=== PATIENT | male | born 1975 | race Hispanic/Latino ===

== ENCOUNTER 2024-03-04 00:13 | Emergency (ER) | payer MEDICARE ==
[~2024-03-04] VITALS: Ht 167.6 cm; Wt 92.5 kg
[~2024-03-04 00:13] MED LIST: ATOR40TA71 PO; CHOL500050 PO; FERR-72 PO; GLIP2.5T2 PO; LORA10TA7 PO; METH-811 PO; TAMS-1 PO
[2024-03-04 04:05] VITALS: BP 115/76; PULSE 104; RESP 22; TEMP 98.4; O2SAT 96
== END 2024-03-04 04:21 | disposition home or self-care (01) ==
LOC: EDH 00:13
DX: K94.03 Colostomy malfunction (principal); Y84.8 Other medical procedures as the cause of abnormal reaction of the patient, or of later complication, without mention of misadventure at the time of the procedure; Y82.8 Other medical devices associated with adverse incidents; E11.9 Type 2 diabetes mellitus without complications; E78.00 Pure hypercholesterolemia, unspecified; I10 Essential (primary) hypertension; Z79.84 Long term (current) use of oral hypoglycemic drugs; Z79.899 Other long term (current) drug therapy; Z98.890 Other specified postprocedural states

== ENCOUNTER 2024-04-12 18:52 | Inpatient (IN) | payer MEDICARE ==
[~2024-04-12] VITALS: Ht 167.6 cm; Wt 103.9 kg
[~2024-04-12 18:52] MED LIST changes: +AMLO-258 PO; +AUD IH
[2024-04-12 19:41] LABS: BASOPHILS # (AUTO) 0.01 K/uL (0.00-0.20); BASOPHILS % (AUTO) 0.1 % (0.0-5.0); HEMATOCRIT 30.8 % (42-54); IMMATURE GRANULOCYTE ABSOLUTE 0.07 K/uL (0-1); LYMPHOCYTES # (AUTO) 0.5 K/uL (1.0-4.8); LYMPHOCYTES % (AUTO) 3.9 % (21.0-51.0); MEAN CORPUSCULAR HEMOGLOBIN 24.6 pg (27.0-33.0); MEAN CORPUSCULAR HGB CONC 31.5 g/dL (32.0-36.0); MONOCYTES # (AUTO) 0.6 K/uL (0.1-1.0); MONOCYTES % (AUTO) 4.5 % (3.0-13.0); NEUTROPHILS # (AUTO) 11.3 K/uL (1.8-7.7); NEUTROPHILS % (AUTO) 90.9 % (40.0-77.0); PLATELET COUNT (AUTO) 360 K/uL (130-400); RED BLOOD CELL COUNT(AUTO) 3.95 MIL/uL (4.50-6.20); RED CELL DISTRIBUTION WIDTH 20.6 % (11.0-15.5); WHITE BLOOD COUNT (AUTO) 12.4 K/uL (4.8-10.8)
[2024-04-12 19:47] LABS: CREATININE 3.4 mg/dL (0.5-1.3); POTASSIUM 4.4 mmol/L (3.5-5.1)
[2024-04-12] MEDS: ZOSYN 3.375GM+NS 50ML 50 ML IVPB STA (20:18)
[2024-04-12] MEDS: 0.9%NACL 1000ML 1,000 ML IV ONE (20:18)
[2024-04-12] MEDS: ondanSETRON 4MG INJ IVP ONE (20:19)
[2024-04-12 20:44] LABS: ALBUMIN 1.9 g/dL (3.5-5.0); BILIRUBIN,DIRECT 0.4 mg/dL (0.0-0.3); BILIRUBIN,TOTAL 0.7 mg/dL (0.2-1.0); TOTAL PROTEIN, SERUM 5.1 g/dL (6.0-8.3)
[2024-04-12] MEDS: ALBUMIN (HUMAN) 25% 50 ML IV SCH (20:59)
[2024-04-12 21:13] LABS: ABG BASE EXCESS -11.7 mmol/L (-2.0-3.0); ABG HCO3 12.5 mmol/L (21.0-28.0); ABG OXYGEN SATURATION 91.2 % (94.0-98.0); ABG PCO2 24 mmHg (35-48); ABG PH 7.341 (7.350-7.450); CARBON MONOXIDE 0.3 % (0.5-1.5); HHb 8.7; PO2, ARTERIAL BG 68.4 mmHg (83.0-108.0); VENT MODE, BG ROOMAIR (ROOM AIR)
[2024-04-12] MEDS: NOREPINEPHRIN 4MG/NS 250ML 250 ML IV SCH (21:20)
[2024-04-12 21:27] LABS: APPEARANCE,URINE CLEAR (CLEAR); BILIRUBIN,URINE NEGATIVE (NEGATIVE); COLOR,URINE LIGHT-YELLOW (YELLOW); GLUCOSE, URINE (UA) NEGATIVE (NEGATIVE); KETONES,URINE NEGATIVE (NEGATIVE); LEUKOCYTE ESTERASE ,URINE NEGATIVE Leu/uL (NEGATIVE); NITRATE,URINE NEGATIVE (NEGATIVE); OCCULT BLOOD,URINE NEGATIVE (NEGATIVE); PH,URINE 5.5 (5.0-8.0); PROTEIN,URINE NEGATIVE (NEGATIVE); UROBILINOGEN,URINE 0.2 mg/dL (0.2-1.0)
[2024-04-12 21:28] VITALS: PULSE 90; RESP 15; O2SAT 100
[2024-04-12 21:28] LABS: ADD UA MICROSCOPIC YES
[2024-04-12 21:30] LABS: BACTERIA,URINE RARE /HPF (None Seen); MUCUS,URINE RARE LPF (None Seen); OTHER CASTS, URINE 1 /LPF (None Seen); SQUAMOUS EPITHELIAL CELL,UR RARE /HPF (0-2)
--- NOTE | 2024-04-12 21:46 | ERN ---
ED Note History of Present Illness Stated Complaint: WEAKNESS Chief Complaint: Weakness Time Seen by MD: 19:46 Time Seen by Midlevel: 19:46 Dictation: Patient is a 48-year-old male with a history of colon cancer on chemo, diabetes, liver cirrhosis, hypertension who presents to the emergency department with complaints of generalized body weakness, sob, nausea and nonbloody vomiting, generalized swelling onset today. Patient reports he had chemo yesterday. Denies any diarrhea, abdominal pain, fevers. Allergies: Coded Allergies: No Known Allergies (Unverified Allergy, Unknown, 02/21/24) Home Meds Reported Medications Albuterol Sulfate (Albuterol Sulfate) 2.5 Mg/0.5 Ml Vial.neb, 2.5 MG IH Q8H, INH 03/18/24 Amlodipine Besylate (Amlodipine Besylate) 10 Mg Tablet, 10 MG PO DAILY for 30 Days, #30 TAB 0 Refills 03/18/24 Glipizide (Glipizide ER) 2.5 Mg Tab.er.24, 2.5 MG PO BID 03/18/24 Methocarbamol (Methocarbamol) 500 Mg Tablet, 500 MG PO QIDP PRN for OTHER [SEE ORDER COMMENTS], TAB 02/22/24 Ferrous Sulfate (Ferrous Sulfate) 325 Mg (65 Mg Iron) Tablet, 325 MG PO DAILY, TAB 02/22/24 Cholecalciferol (Vitamin D3) (Vitamin D3) 1,250 Mcg (06062 Unit) Capsule, 1250 MCG PO QWEEK, CAP 02/22/24 Loratadine (Loratadine) 10 Mg Tablet, 10 MG PO DAILY, TAB 02/22/24 Atorvastatin Calcium (Atorvastatin Calcium) 40 Mg Tablet, 40 MG PO DAILY, TAB 02/22/24 Tamsulosin HCl (Flomax) 0.4 Mg Cap.er.24h, 0.4 MG PO DAILY, CAPSULE. 02/22/24 Past Medical History Past Medical History: Cancer, Diabetes-Type II, Hypertension Surgical History: Other Surgical History Other: COLOSTOMY, R CHEST PORT A CATH RN Note Reviewed/Agreed w/PFSH: Yes Review of System Dictation Constitutional: Negative for fever,chills, and weight loss Eyes: Negative for injury, pain,redness, and discharge ENT: Negative for injury,pain or swelling Cardiovascular: Negative for chest pain, palpitations, and edema Respiratory: Negative for cough, and wheezing, positive for shortness of breath Abdomen/GI: Negative for diarrhea, and constipation. Positive for nausea vomiting Back: Negative for injury and pain : Negative for injury, bleeding and discharge MS/Extremity: Negative for injury and deformity Skin: Negative for rash, and discoloration Neuro: Negative for headache, numbness, tingling, and seizure . Positive for generalized weakness Psych: Negative for suicide ideation, homicidal ideation, and hallucinations Initial Vital Sign VS Vital Signs Date Time Temp Pulse Resp B/P (MAP) Pulse Ox O2 Delivery O2 Flow Rate FiO2 04/12/24 18:53 92 16 97/49 96 Room Air 04/12/24 19:09 97.9 0 21 Physical Exam Dictation Vital Signs reviewed General Appearance: Alert, oriented x 3, mildly distress, Head and Face: non-traumatic. Eyes: PERRL, pink conjunctivas, eyelid no trauma, anterior chamber with arcus senilis. Ears: Pinnas intact and no signs of trauma or erythema ear canals clear and no discharge TM no erythema Nose: No discharge, no bleeding. Oropharynx: Mouth normal, tongue pink. pharynx clear,no erythema, tonsils no exudates, no abscesses noted, mucous membrane moist Neck: Supple, non-tender, no thyromegaly, no masses, no JVD, no bruits Breast:Deferred Chest:No tenderness, no crepitus, no paradoxical movement, no retractions Lungs:Clear, well-ventilated, symmetric, no rales, no wheezing, no rhonchi, no stridor, diminished right side Heart: Regular rate, regular rhythm, no murmur, no gallops Vascular: 3+ bilateral edema Abdomen: Firm, positive bowel sounds, distended, no guarding, nontender, no rebound, no masses no hepatomegaly, no splenomegaly, no Avina's sign, no hernias. Rectal: Deferred Genital: Deferred Neurological: Normal speech, motor function intact, sensory function intact Musculoskeletal: Neck nontender, full range of motion, back nontender, full range of motion, Extremities: nontender, full range of motion Skin: Color pale, dry, no turgor, no rash, no lacerations, no abrasions, no contusions. Lymphatic: Deferred Results (Laboratory/Radiology) Laboratory/Radiology Laboratory Tests Test 04/12/24 19:25 04/12/24 20:11 04/12/24 21:12 04/12/24 21:19 White Blood Count 12.4 K/uL (4.8-10.8) H Red Blood Count 3.95 MIL/uL (4.50-6.20) L Hemoglobin 9.7 g/dL (14.0-18.0) L Hematocrit 30.8 % (42-54) L Mean Corpuscular Volume 78.0 fL (79-99) L Mean Corpuscular Hemoglobin 24.6 pg (27.0-33.0) L Mean Corpuscular Hemoglobin Concent 31.5 g/dL (32.0-36.0) L Red Cell Distribution Width 20.6 % (11.0-15.5) H Platelet Count 360 K/uL (130-400) Mean Platelet Volume 9.4 fL (7.5-10.5) Immature Granulocyte % (Auto) 0.6 % (0-1) Neutrophils (%) (Auto) 90.9 % (40.0-77.0) H Lymphocytes (%) (Auto) 3.9 % (21.0-51.0) L Monocytes (%) (Auto) 4.5 % (3.0-13.0) Eosinophils (%) (Auto) 0.0 % (0.0-8.0) Basophils (%) (Auto) 0.1 % (0.0-5.0) Neutrophils # (Auto) 11.3 K/uL (1.8-7.7) H Lymphocytes # (Auto) 0.5 K/uL (1.0-4.8) L Monocytes # (Auto) 0.6 K/uL (0.1-1.0) Eosinophils # (Auto) 0.00 K/uL (0.00-0.70) Basophils # (Auto) 0.01 K/uL (0.00-0.20) Absolute Immature Granulocyte (auto 0.07 K/uL (0-1) Nucleated Red Blood Cells 0.0 % (0.0-0.19) White Cell Morphology Comment See comments Red Blood Cell Morphology See comments Sodium Level 125 mmol/L (136-145) L Potassium Level 4.4 mmol/L (3.5-5.1) Chloride Level 94 mmol/L (101-111) L Carbon Dioxide Level 16 mmol/L (21-32) L Blood Urea Nitrogen 59 mg/dL (7-18) H Creatinine 3.4 mg/dL (0.5-1.3) H Glomerular Filtration Rate Calc 21 mL/min (>90) Random Glucose 161 mg/dL (70-105) H Total Calcium 8.4 mg/dL (8.5-10.1) L Lipase 119 U/L (16-77) H Lactic Acid Level 5.2 mmol/L (0.8-2.5) H Total Bilirubin 0.7 mg/dL (0.2-1.0) Direct Bilirubin 0.4 mg/dL (0.0-0.3) H Aspartate Amino Transf (AST/SGOT) 46 U/L (10-37) H Alanine Aminotransferase (ALT/SGPT) 30 U/L (12-78) Alkaline Phosphatase 494 U/L (50-136) H Ammonia 59 umol/L (11-32) H Troponin I High Sensitivity 5 ng/L (4-75) B-Type Natriuretic Peptide 60 pg/mL (0-100) Total Protein 5.1 g/dL (6.0-8.3) L Albumin 1.9 g/dL (3.5-5.0) L Procalcitonin 0.78 ng/mL (0.05-0.5) H Blood Gas Specimen Type Arterial Arterial Blood pH 7.341 (7.350-7.450) Arterial Blood Partial Pressure CO2 24 mmHg (35-48) L Arterial Blood Partial Pressure O2 68.4 mmHg (83.0-108.0) L Arterial Blood HCO3 12.5 mmol/L (21.0-28.0) L Arterial Blood Oxygen Saturation 91.2 % (94.0-98.0) L Arterial Blood Base Excess -11.7 mmol/L (-2.0-3.0) L Hemoglobin (Blood Gas) 10.0 g/dL (13.5-17.5) L Sodium (Blood Gas) 128 MMOL/L (136-145) L Bedside Potassium (Blood Gas) 4.5 MMOL/L (3.4-4.5) Bedside Chloride (Blood Gas) 103 MMOL/L (98-107) Bedside Glucose (Blood Gas) 150 MG/DL (65-95) H Bedside Ionized Calcium (Blood Gas) 1.10 MMOL/L (1.15-1.33) L Bedside Lactic Acid (Blood Gas) 5.12 MMOL/L (0.36-0.75) *H Blood Gas Temperature 37.0 CELSIUS (35.5-37.0) Blood Gas Vent Mode ROOMAIR (ROOM AIR) FiO2 21.0 % Blood Gas Specimen Comment RB Urine Color LIGHT-YELLOW (YELLOW) Urine Appearance CLEAR (CLEAR) Urine pH 5.5 (5.0-8.0) Urine Specific Prewitt 1.010 (1.001-1.031) Urine Protein NEGATIVE mg/dL (NEGATIVE) Urine Glucose (UA) NEGATIVE mg/dL (NEGATIVE) Urine Ketones NEGATIVE mg/dL (NEGATIVE) Urine Occult Blood NEGATIVE (NEGATIVE) Urine Nitrate NEGATIVE (NEGATIVE) Urine Bilirubin NEGATIVE mg/dL (NEGATIVE) Urine Urobilinogen 0.2 mg/dL (0.2-1.0) Urine Leukocyte Esterase NEGATIVE Tucker/uL Urine RBC 2-5 /HPF (0-1) H Urine WBC 6-10 /HPF (0-1) H Urine Squamous Epithelial Cells RARE /HPF (0-2) Urine Bacteria RARE /HPF (None Seen) Urine Hyaline Casts 2-5 /LPF (0-1 /LPF) H Urine Other Casts 1 /LPF (None Seen) REASON: sob ORDERING PHYSICIAN: JOHNNIE SAVAGE MD PROCEDURE: CXR1VW - CHEST 1VW CHEST 1VW CLINICAL HISTORY: sob COMPARISON: 03/22/2024 TECHNIQUE: Single view of the chest was obtained. FINDINGS: There is moderate to large right and likely small left pleural effusion with atelectasis. The chest port cardia mediastinal silhouette and bony structures are stable. IMPRESSION: Right greater than left bilateral pleural effusions with atelectasis. Labs Reviewed?: Yes EKG: (+) NSR, (+) rhythm (Sinus rhythm), (+) NH (143) EKG Comment: EKG 04/12/20241958 ventricular rate 87, regular rate and rhythm, sinus rhythm, prolonged QT. ED Course ED Course Orders Procedure Category Date Status Time Vital Signs Per CPOE 04/12/24 Transmitted Routine 19:28 Saline Lock Iv CPOE 04/12/24 Transmitted 19:28 Cbc With Differential LAB 04/12/24 Complete 19: Lipase LAB 04/12/24 Complete 19:28 Urinalysis Profile LAB 04/12/24 Logged 19:28 Basic Metabolic Panel LAB 04/12/24 Complete 19:28 Troponin I High LAB 04/12/24 Complete Sensitivity 19:52 12 Lead Ekg Tracing- EKG 04/12/24 Logged Technical 19:52 Chest 1vw RAD 04/12/24 Resulted 19:52 B-Type Natriuretic LAB 04/12/24 Complete Peptide 19:52 Ammonia LAB 04/12/24 Complete 19:52 Hepatic Function Panel LAB 04/12/24 Complete 19:53 0.9%Nacl 1000ml (Ns PHA 04/12/24 In Process 1000ml) 20:00 Ondansetron 4mg Inj PHA 04/12/24 Complete (Zofran 4mg Inj) 20:00 Blood Cult MERRY 04/12/24 In Process 20:04 Urinalysis Profile LAB 04/12/24 Complete 20:04 Zosyn 3.375gm+Ns 50ml PHA 04/12/24 Complete (Zosyn 3.375gm+Ns 20:04 Procalcitonin LAB 04/12/24 Complete 20:04 Lactic Acid LAB 04/12/24 Complete 20:04 Albumin (Human) 25% PHA 04/12/24 In Process (Albumin (Human) 25% 20:30 Norepinephrin 4mg/Ns PHA 04/12/24 In Process 250ml (Levophed 4mg 21:00 Arterial Blood Gas RT 04/12/24 Transmitted 20:51 Nurse Driven Zapata TJ 04/12/24 In Process Removal Pro 20:56 Arterial Blood Gas LAB 04/12/24 Complete Arterial + 21:12 Bipap Settings RT 04/12/24 Transmitted 21:18 Culture Urine MERRY 04/12/24 In Process 21:30 Vital Signs(Adult CPOE 04/12/24 Transmitted Hospitalist) 21:51 Nurse To Enter Home CPOE 04/12/24 Transmitted Medication 21:51 Admit Orders ADM 04/12/24 Transmitted 21:51 Meropenem (Merrem) PHA 04/12/24 Logged 22:00 Linezolid 600 PHA 04/12/24 In Process Mg/Iso-Osm (Zyvox 600 22:00 Acetaminophen 325mg PHA 04/12/24 In Process Supp (Tylenol 325mg 22:00 Ondansetron 4mg Inj PHA 04/12/24 In Process (Zofran 4mg Inj) 22:00 Heparin 5,000 Unit PHA 04/12/24 In Process Vial (Heparin 5,000 U 22:00 Nephrology Consult CONPHYS 04/13/24 Transmitted 08:00 Cbc With Differential LAB 04/13/24 Verified 04:00 Basic Metabolic Panel LAB 04/13/24 Verified 04:00 Magnesium LAB 04/13/24 Verified 04:00 Edm Admit Bridge Order ADM 04/12/24 Transmitted 21:59 Admit Orders ADM 04/12/24 Transmitted 21:59 Critcal Care Consult CONPHYS 04/12/24 Transmitted 22:01 Current Medications Medications (Trade) Dose Ordered Sig/Kyrie Route PRN Reason Start Time Stop Time Status Last Admin Dose Admin Acetaminophen (Tylenol 325mg Suppository) 650 mg Q6H PRN RC MILD PAIN (1-3) 04/12/24 22:00 05/12/24 21:59 Albumin Human 50 ml @ 0 mls/hr AD IV 04/12/24 20:30 04/22/24 20:29 04/12/24 20:59 Heparin Sodium (Porcine) (HEParin 5,000 UNIT VIAL) 5,000 unit Q12H SQ 04/12/24 22:00 05/12/24 21:59 Linezolid 300 ml @ 150 mls/hr Q12H IV 04/12/24 22:00 04/22/24 21:59 Meropenem 1 gm/ Sodium Chloride 100 ml @ 33.333 mls/ hr Q12H IVPB 04/12/24 22:00 04/22/24 21:59 UNV Norepinephrine 250 ml @ 37.425 mls/ hr PROTOCOL IV 04/12/24 21:00 05/12/24 20:59 04/12/24 21:20 Ondansetron HCl (zoFRAN 4MG INJ) 4 mg ONCE ONCE IVP 04/12/24 20:00 04/12/24 20:06 DC 04/12/24 20:19 Ondansetron HCl (zoFRAN 4MG INJ) 4 mg Q6H PRN IVP NAUSEA/VOMITING 04/12/24 22:00 05/12/24 21:59 Piperacillin Sod/ Tazobactam Sod 50 ml @ 200 mls/hr ONCE STAT IVPB 04/12/24 20:04 04/12/24 20:18 DC 04/12/24 20:18 Sodium Chloride 1,000 ml @ 100 mls/hr ONCE ONCE IV 04/12/24 20:00 04/13/24 05:59 04/12/24 20:18 Vital Signs Date Time Temp Pulse Resp B/P (MAP) Pulse Ox O2 Delivery O2 Flow Rate FiO2 04/12/24 21:23 97.9 93 18 94/55 96 Room Air* 0 21 04/12/24 20:27 97.9 93 18 85/48 96 Room Air* 0 21 04/12/24 19:09 97.9 93 18 91/46 98 Room Air* 0 21 04/12/24 18:53 92 16 97/49 96 Room Air Medical Decision Making MDM MDM: Patient is a 48-year-old male with a history of colon cancer on chemo, diabetes, liver cirrhosis, hypertension who presents to the emergency department with complaints of generalized body weakness, sob, nausea and nonbloody vomiting, generalized swelling onset today. Patient reports he had chemo yesterday. Denies any diarrhea, abdominal pain, fevers. CBC showed mild leukocytosis, anemia, chemistry showed hyponatremia, hypochloremia, elevated BUN and creatinine, worsening since previous admission, elevated lipase, elevated ammonia, elevated lactic acid, elevated procalcitonin, urinalysis unremarkable. Patient will be admitted for further management. Differential diagnosis: Dehydration, electrolyte imbalance, sepsis, ACS, gastroenteritis Comorbidities: Colon cancer, liver cirrhosis, hypertension Tests considered and not ordered secondary to shared decision making include: none Previous outside records reviewed: none Risk of complication and/or morbidity or mortality of patient management: The patient meets criteria for admission. Need for emergency major/minor surgery: No There are no social concerns with this patient. I independently interpreted the tests I ordered (labs, urinalysis, etc.). I discussed the case with the hospitalist for admission. Dr. Jimenez who accepts admission I discussed the case with the following specialists: none. Historian: pateint. I independently interpreted imaging studies and EKGs that I ordered (US, CT, XR, EKG, etc.). External chart review: none. Medical management and examination interpretation discussions were had by me with other qualified healthcare professionals as indicated for the patient's care. Critical Care Note Critical Time: other (39) Comment(s) Total critical care time was 39 minutes. Excluding time for procedures. Management of critically ill patient with concern for acute decompensation. Management included interpretation of laboratory values and imaging, hemodynamics, time for consultation with consultants and admitting physician. DX & DISP Disposition: Inpatient Decision to Admit Date: Apr 12, 2024 Decision to Admit Time: 21:51 Departure Impression: Primary Impression: Septic shock Additional Impressions: Acute kidney injury, Leukocytosis, Anemia, Hyponatremia, Hypochloremia, Hyperammonemia, Pleural effusion, right, Pleural effusion, left, Elevated lactic acid level, Hypoxia, Weakness, Hypotension Condition: Critical Referrals: SELF,REFERRAL (PCP) I have examined patient, & reviewed all documents, & agreed W/ the Diagnosis JOHNNIE SAVAGE MD Apr 12, 2024 21:46
[2024-04-12] MEDS ORDERED: MEROPENEM 1 GM in 0.9%NACL 100ML 100 ML IVPB SCH (22:00)
[2024-04-12] MEDS ORDERED: acetaMINOPHEN 325 MG SUPPOSITORY RC PRN (22:00)
--- NOTE | 2024-04-12 22:00 | HMCIMG ---
CHEST 1VW CLINICAL HISTORY: sob COMPARISON: 03/22/2024 TECHNIQUE: Single view of the chest was obtained. FINDINGS: There is moderate to large right and likely small left pleural effusion with atelectasis. The chest port cardia mediastinal silhouette and bony structures are stable. IMPRESSION: Right greater than left bilateral pleural effusions with atelectasis.
[2024-04-12] MEDS: LINEZOLID 600 MG/ISO-OSM 300 ML IV SCH (22:19)
[2024-04-12] MEDS: HEParin 5,000 UNIT VIAL SQ SCH (22:19)
[2024-04-12] MEDS ORDERED: COMPOUND IV MISC 1 EACH IVSOLN MISC PRN (22:30)
--- NOTE | 2024-04-12 23:17 | CONS ---
[facility] CONSULTATION NOTE Date Patient Seen: Apr 12, 2024 Time of Visit: 23:17 Supervising Physician: Dr. Price Reason for Consultation: Primary Care Physician: Dr. Ian Carter Outpatient Specialists: Inpatient Consults: PROBLEM LIST: Sepsis with septic shock, in need of pressor Acute hypoxic respiratory failure, in need of BIPAP Recurrent right pleural effusion- pathology report on 03/22 right pleural fluid negative for malignancy Acute cystitis Metastatic right colon adenocarcinoma to the liver Ascites with peritoneal carcinomatosis Lactic acidosis Metastatic right colon cancer to the liver, new diagnosis -Status post colostomy bag in place. - Biopsy from the liver was positive for adenocarcinoma consistent with colon origin -Started on chemotherapy treatment with 5-FU irinotecan, received his first cycle. Patient on 5-FU pump Metabolic acidosis Acute renal failure Frail/ debility Diabetes mellitus Persistent nausea Anemia HPI: Mr. Leyva is a 48-year-old male with a history of colon cancer on chemo s/p colostomy, diabetes, liver cirrhosis, hypertension who presented to the emergency department with complaints of generalized body weakness, sob, nausea and nonbloody vomiting, generalized swelling onset today. Patient reports he had chemo yesterday. Denies any diarrhea, abdominal pain, fevers. The patient presented hypoxic and was placed on BIPAP by ED. Patient was also hypotensive and was placed on Levophed by ED. Patient was admitted under Dr. Hicks with BIS as critical care consults. I went to assess the patient at bedside. The patient was sad crying,reports that he is going to and would like to go home. I informed him that the is in need of the pressor and in need of BIPAP other kendrick his b/p will dorp and become distressed from shortness of breath. He quickly agreed to plan of care. Plan of care is listed below. PAST MEDICAL HX: see above PAST SURGICAL HX: Colostomy, right chest port a cath SOCIAL HISTORY: No tobacco, ETOH, or illicit drug use Coded Allergies: No Known Allergies (Unverified Allergy, Unknown, 02/21/24) REVIEW OF SYSTEMS: 12 point ROS reviewed with patient. Pertinent positives mentioned above. Otherwise negative. PHYSICAL EXAM: GENERAL: alert, weak, awake oriented x 3 HEENT: EOMI, Sclera non icteric, moist mucosa NECK: Supple, no JVD, trachea midline LUNGS: Clear breath sounds bilaterally. No wheezes HEART: Regular rate and rhythm. Normal S1 and S2, without murmurs ABD: Abdomen soft, nontender. Bowel sounds present EXT: No clubbing cyanosis or edema NEURO: Alert and oriented to person, follows commands Vital Signs (last 8hr) Date Time Temp Pulse Resp B/P (MAP) Pulse Ox O2 Delivery O2 Flow Rate FiO2 04/12/24 22:31 97.9 93 18 80/50 96 Bi-PAP+ 50 04/12/24 21:23 97.9 93 18 94/55 96 Room Air* 0 21 04/12/24 20:27 97.9 93 18 85/48 96 Room Air* 0 21 04/12/24 19:09 97.9 93 18 91/46 98 Room Air* 0 21 04/12/24 18:53 92 16 97/49 96 Room Air LABS: Hematology Labs: Test 04/12/24 19:25 Range/Units White Blood Count 12.4 H 4.8-10.8 K/uL Red Blood Count 3.95 L 4.50-6.20 MIL/uL Hemoglobin 9.7 L 14.0-18.0 g/dL Hematocrit 30.8 L 42-54 % Mean Corpuscular Volume 78.0 L 79-99 fL Mean Corpuscular Hemoglobin 24.6 L 27.0-33.0 pg Mean Corpuscular Hemoglobin Concent 31.5 L 32.0-36.0 g/dL Red Cell Distribution Width 20.6 H 11.0-15.5 % Platelet Count 360 130-400 K/uL Mean Platelet Volume 9.4 7.5-10.5 fL Immature Granulocyte % (Auto) 0.6 0-1 % Neutrophils (%) (Auto) 90.9 H 40.0-77.0 % Lymphocytes (%) (Auto) 3.9 L 21.0-51.0 % Monocytes (%) (Auto) 4.5 3.0-13.0 % Eosinophils (%) (Auto) 0.0 0.0-8.0 % Basophils (%) (Auto) 0.1 0.0-5.0 % Neutrophils # (Auto) 11.3 H 1.8-7.7 K/uL Lymphocytes # (Auto) 0.5 L 1.0-4.8 K/uL Monocytes # (Auto) 0.6 0.1-1.0 K/uL Eosinophils # (Auto) 0.00 0.00-0.70 K/uL Basophils # (Auto) 0.01 0.00-0.20 K/uL Absolute Immature Granulocyte (auto 0.07 0-1 K/uL Nucleated Red Blood Cells 0.0 0.0-0.19 % White Cell Morphology Comment See comments Red Blood Cell Morphology See comments Chemistry Labs: Test 04/12/24 20:11 04/12/24 19:25 Range/Units Lactic Acid Level 5.2 H 0.8-2.5 mmol/L Total Bilirubin 0.7 0.2-1.0 mg/dL Direct Bilirubin 0.4 H 0.0-0.3 mg/dL Aspartate Amino Transf (AST/SGOT) 46 H 10-37 U/L Alanine Aminotransferase (ALT/SGPT) 30 12-78 U/L Alkaline Phosphatase 494 H 50-136 U/L Ammonia 59 H 11-32 umol/L Troponin I High Sensitivity 5 4-75 ng/L B-Type Natriuretic Peptide 60 0-100 pg/mL Total Protein 5.1 L 6.0-8.3 g/dL Albumin 1.9 L 3.5-5.0 g/dL Procalcitonin 0.78 H 0.05-0.5 ng/mL Sodium Level 125 L 136-145 mmol/L Potassium Level 4.4 3.5-5.1 mmol/L Chloride Level 94 L 101-111 mmol/L Carbon Dioxide Level 16 L 21-32 mmol/L Blood Urea Nitrogen 59 H 7-18 mg/dL Creatinine 3.4 H 0.5-1.3 mg/dL Glomerular Filtration Rate Calc 21 >90 mL/min Random Glucose 161 H 70-105 mg/dL Total Calcium 8.4 L 8.5-10.1 mg/dL Lipase 119 H 16-77 U/L DIAGNOSTICS / RADIOLOGY RESULTS: [ ] PLAN Admit to ICU under Dr. Jimenez with BIS as critical care consults. Continuous cardiac monitoring. Monitor respiratory status closely. Continue Levophed IV drip to keep MAP above 65. Continue BIPAP, titrate to keep O2 above 92%. Albuterol and Atrovent. RT to provide IS and education on use. PRN medication for N/V, pain, hypertension Monitor liver and renal function. Monitor electrolytes and treat accordingly. DVT and GI prophylaxis. NEURO: Minimize central acting medications as possible. Fall Precautions. Well lighted room through the day and minimize interruptions through the night to prevent acute delirium. PULMONARY: Supplemental 02 as needed Titrate Fio2 to keep Spo2 > or = 90% DuoNebs and CPT as needed IS hourly while awake for pulmonary hygiene Out of bed to chair as tolerated VAP Bundle CARDIOVASCULAR: Follow hemodynamics. Titrate vasopressor to keep MAP >65 or systolic blood pressure >95mmHg GI & NUTRITION: Continue nutritional support Aspirations precautions Prokinetic agents and laxatives as needed KIDNEYS & ELECTROLYTES: Strict monitoring of intake and output Daily weights Avoid nephrotoxic agents Monitor electrolytes and replace as needed Goal urine output of 30mL/hr or 0.5mL/kg/hr ENDOCRINE: Maintain blood glucose between 100-180 at all times. Insulin sliding scale for blood glucose management INFECTIOUS DISEASE: Trend temperature. Jackson-culture if febrile. HEMATOLOGY & COAGULATION: Monitor H&H. Keep Hgb > 7 Transfuse 1 unit of PRBC for Hgb < 7 Transfuse 1 pack of platelets of platelets < 20, 000 Watch for any signs and symptoms of bleeding SKIN: Pressure ulcer prevention per facility protocol Rehab: PT/OT Code Status: Full Resuscitation Disposition: [Admit to ICU] VIKAS GOLD Apr 12, 2024 23:17
[2024-04-12] MEDS: SODIUM BICARB 50MEQ 50ML VIAL IV ONE (23:52)
[2024-04-13] VITALS (26 sets, daily range): BP systolic 95–129; BP diastolic 44–77; PULSE 91–107; RESP 11–20; TEMP 97.6; O2SAT 94–100
[2024-04-13] MEDS: MEROPENEM 1 GM VIAL IVPB SCH (00:28)
[2024-04-13 00:29] LABS: SARS-CoV-2, RNA, NAAT NEGATIVE SARS CoV-2 (NEGATIVE)
[2024-04-13 00:33] LABS: INFLUENZA TYPE A Negative For Type A (NEGATIVE); INFLUENZA TYPE B Negative For Type B (NEGATIVE)
--- NOTE | 2024-04-13 01:28 | HMCIMG ---
CT ABDOMEN/PELVIS W/O CONTRAST HISTORY: Abdominal distention COMPARISON: CT from 03/18/2024 TECHNIQUE: Multiple sequential axial images of the abdomen and pelvis were obtained from the dome of the diaphragm through symphysis pubis. Patient was not given contrast through intravenous route. Oral contrast was not given. FINDINGS: There are bilateral pleural effusions with compressive atelectasis . There is left lingular pulmonary nodule measuring 18 mm. Degenerative changes of the thoracolumbar spine are present. The heart is not enlarged. Extensive hepatic nodules are seen throughout the liver appears cirrhotic changes of the liver are noted. Liver measures 16.4 cm. Spleen measures 12 cm. Spleen, adrenal glands and pancreas are unremarkable. There is no evidence of hydronephrosis bilaterally. No evidence of renal stone is seen. Fecal material is seen in the colon. There are borderline retroperitoneal and mesenteric lymph nodes. There is ascites. Anasarca. Atherosclerotic changes are present. There appears be soft tissue mass in the region of the ascending colon measuring 8.3 x 7.7 cm with neoplastic process not excluded. There are bilateral inguinal/scrotal hernias with fluid content with right worse than left. Pelvic sidewalls are symmetric bilaterally. Bladder is well distended without wall thickening. IMPRESSION: 1. Extensive hepatic nodules. Hepatosplenomegaly. Bilateral pleural effusions with compressive atelectasis. Left lingular pulmonary nodule. Ascites. Anasarca. Soft tissue mass in the region of the ascending colon measuring 8.3 x 7.7 cm may be related to colon cancer. Clinical correlation is recommended. Borderline retroperitoneal mesenteric adenopathy is seen. Bilateral scrotal hernias with fluid content. CT was performed with one or more following dose reduction techniques: automated exposure control, adjustment of the mA and kv according to patient's size, or use of a iterative reconstruction technique.+
[2024-04-13 04:36] LABS: BASOPHILS # (AUTO) 0.01 K/uL (0.00-0.20); BASOPHILS % (AUTO) 0.1 % (0.0-5.0); HEMATOCRIT 29.5 % (42-54); IMMATURE GRANULOCYTE ABSOLUTE 0.11 K/uL (0-1); LYMPHOCYTES # (AUTO) 0.6 K/uL (1.0-4.8); LYMPHOCYTES % (AUTO) 3.4 % (21.0-51.0); MEAN CORPUSCULAR HEMOGLOBIN 24.5 pg (27.0-33.0); MEAN CORPUSCULAR HGB CONC 31.9 g/dL (32.0-36.0); MEAN CORPUSCULAR VOLUME 76.8 fL (79-99); MONOCYTES # (AUTO) 1.3 K/uL (0.1-1.0); MONOCYTES % (AUTO) 7.4 % (3.0-13.0); NEUTROPHILS # (AUTO) 15.4 K/uL (1.8-7.7); NEUTROPHILS % (AUTO) 88.5 % (40.0-77.0); PLATELET COUNT (AUTO) 372 K/uL (130-400); RED BLOOD CELL COUNT(AUTO) 3.84 MIL/uL (4.50-6.20); RED CELL DISTRIBUTION WIDTH 20.6 % (11.0-15.5); WHITE BLOOD COUNT (AUTO) 17.4 K/uL (4.8-10.8)
[2024-04-13 04:56] LABS: CREATININE 3.5 mg/dL (0.5-1.3); MAGNESIUM 1.8 mg/dL (1.80-2.40); POTASSIUM 4.4 mmol/L (3.5-5.1)
--- NOTE | 2024-04-13 06:25 | EKG ---
[facility] Test Date: 2024-04-12 Test Time: 19:59:07 Pat Name: NAPOLEON HOOVER Department: EDHIP Room: 218 Gender: M Manager Drug: 1081 : 1975 Requested By: JOHNNIE SAVAGE Order Number: [id number] Reading MD: Richmond Crawford Measurements Intervals Eclectic Rate: 87 P: 37 AZ: 143 QRS: 47 QRSD: 70 T: 54 QT: 420 QTc: 507 Interpretive Statements Sinus rhythm Low voltage, extremity leads Prolonged QT interval Compared to ECG 03/17/2024 18:04:33 Sinus tachycardia no longer present Right-axis deviation no longer present Electronically Signed On 04-13-2024 20:04:04 CDT by Richmond Crawford Please click the below link to view image of tracing.
[2024-04-13] MEDS: 0.9%NACL 1000ML 1,275 ML IV ONE (08:45)
[2024-04-13] MEDS: ondanSETRON 4MG INJ IVP PRN (10:55)
[2024-04-13] MEDS: morPHINE 2 MG SYG IVP ONE (10:56)
[2024-04-13] MEDS ORDERED: ondanSETRON 4MG INJ IVP PRN (11:00)
[2024-04-13] MEDS ORDERED: CYCLOBENZAPRINE HCL 10 MG TABLET PO PRN (13:00)
--- NOTE | 2024-04-13 14:12 | CONS ---
CONSULT NOTE: This is a 48-year-old male with history of morbid obesity, diabetes mellitus, right inguinal hernia, presented to the hospital with abdominal pain and distention. The patient noticed increasing pain for the past 48 hours, Noticed swelling to the right groin area. The patient in the ER was found to have reducible right inguinal hernia. Due to increasing distention, CT of the abdomen was done, which shows soft tissue mass in the cecum. Also, the patient was found to have multiple masses in the liver. The patient has history of weight loss. No fever, no chills. Denies diarrhea. No nausea and vomiting. Colonoscopy was done which showed possible cecal mass with almost complete obstruction. Paracentesis was done. There is suspicious for positive for malignancy. We do not have the final report, The patient presents with suspected colon cancer, but lacks a definitive tissue diagnosis. A port placement surgery was performed by Dr. Maguire, and a superficial biopsy was conducted, but the results were inconclusive and did not show cancer. Multiple lesions are visible on imaging. Patient reports a little nausea but denies any pain. Hemoglobin levels are reported as good. The patient denies bleeding from the rectum Patient had diverting colostomy. Liver biopsy was consistent with adenocarcinoma consistent with metastatic disease from the colon mass. Patient denies any obvious bleeding. This patient is ready for his palliative chemotherapy treatment. Patient refusing hospice. This patient have family issue. And his aunt actually brought him for treatment today. Patient feeling tired and fatigued. But this patient actually wanted treatment. Patient came to the emergency department with the patient hypotensive. Patient was given IV fluid. Patient on small dose of pressors. Past Medical History: - Hyperlipidemia - Diabetes mellitus - Benign prostate hypertrophy Past Surgical History: Procedure: Partial resection of colon (procedure) Past Surgical History*: - Port placement Medications: Atorvastatin Oral 40 mg orally daily Docusate Sodium Oral 100 mg orally 2 times per day Ferrous Sulfate Oral orally daily Loratadine Oral 10 mg orally daily Methocarbamol Oral 500 mg orally 3 times per day Ondansetron Oral 8 mg tablet 1 tablet orally every 8 hours as needed for nausea and vomiting. Cefuroxime Oral 500 mg orally 2 times per day Tamsulosin Oral 0.4 mg orally daily Glipizide Oral 2.5 mg orally daily Furosemide Oral 20 mg tablet 1 tablet orally daily. Vitamin D (Cholecalciferol Oral) orally daily Medications reviewed and reconciled with patient. Allergies: No known medication allergies Smoking Status: Smoking Tobacco : Never smoker; Smokeless Tobacco : Never used smokeless tobacco; Vaping : Never vaped Social History: - Former public safety dispatcher - Denies alcohol use - Denies drug use - Lives in [place] Family History: Father: No History of Disease Mother: No History of Disease Brother 1: - Brain/CAR VARNISHER cancer Grandfather - Maternal (2nd Degree): - Stomach cancer ROS: General: no weight loss, no anorexia, no fevers, no chills HEENT: no sore throat, no epistaxis, no earache, no oral sores Cardiac: no chest pain, no orthopnea, no paroxysmal nocturnal dyspnea, no palpitations, no dizziness, no lightheadedness, no ankle swelling Pulmonary: no cough, no hemoptysis Genitourinary: no dysuria, no hematuria, no nocturia Gastrointestinal: no nausea, no vomiting, no dysphagia, no diarrhea, no melena, no hematochezia Musculoskeletal: no back pain, no joint pain, no joint swelling, no limb pain Dermatological: no rash, no changes of the skin that worry Endocrine: no polyuria, no excessive thirst, no facial swelling Neurological: no motor weakness in extremities, no severe generalized weakness Vitals: Height: 67 in; Weight: None Today; Blood pressure: 94/65, Pulse: 105, Temperature: 97 F, Respirations: 16, Pain Scale: 0 Karnofsky: Not Assessed Physical Exam: Vitals: WEIGHT: 212 LBS. General: No acute distress. Well-developed. HEENT: Normocephalic. Atraumatic. EOMI. PERRLA. Moist mucous membranes. No oral lesions. Oral cavity is clear. Neck: Supple. No cervical adenopathy. No supraclavicular adenopathy. Spine: Nontender to percussion. Lungs: No increased work of breathing. No use of accessory muscles. Heart: Good peripheral perfusion. Abdomen: Soft. Extremities: No lower extremity edema. No cyanosis. No clubbing. Normal 2+ pulses bilaterally. Neurological: Intact. Impression: 1. New diagnosis of metastatic right colon cancer to the liver. Biopsy from the liver was positive for adenocarcinoma consistent with colon origin. Status post colostomy bag in place. This patient have family issue. And his aunt actually brought him for treatment today. Patient feeling tired and fatigued. But this patient actually wanted treatment. Patient was started on chemotherapy treatment with 5-FU irinotecan. Patient received his first cycle. Patient on 5-FU pump 2. Diabetes mellitus 3. Persistent nausea 4. Anemia 5. Hypotension Plan 1. We will hold chemotherapy treatment. I asked the nurse to stop chemo. And keep the Port-A-Cath accessed so they could use it on this admission. 2. No need for blood product transfusion 3. This patient have metastatic colorectal cancer with the patient refusing hospice. 4. Continue care as per primary 5. I think this patient should be at least DNR/DNI. CURRENT MEDICATIONS Acetaminophen (Tylenol 325mg Suppository) 650 mg Q6H PRN RC MILD PAIN (1-3); Start 04/12/24 at 22:00; Stop 05/12/24 at 21:59 Albumin Human 50 ml @ 0 mls/hr AD IV Last administered on 04/12/24at 20:59; Admin Dose 100 MLS/HR; Start 04/12/24 at 20:30; Stop 04/22/24 at 20:29 Cyclobenzaprine HCl (Cyclobenzaprine HCl) 500 mg QIDP PRN PO OTHER [SEE ORDER COMMENTS]; Start 04/13/24 at 13:00; Stop 05/13/24 at 12:59; Status UNV Heparin Sodium (Porcine) (HEParin 5,000 UNIT VIAL) 5,000 unit Q12H SQ Last administered on 04/13/24at 10:55; Admin Dose 5,000 UNIT; Start 04/12/24 at 22:00; Stop 05/12/24 at 21:59 Linezolid 300 ml @ 150 mls/hr Q12H IV Last administered on 04/13/24at 10:55; Admin Dose 150 MLS/HR; Start 04/12/24 at 22:00; Stop 04/22/24 at 21:59 Meropenem (Merrem) 1 gm Q12H IVPB Last administered on 04/13/24at 10:54; Admin Dose 1 GM; Start 04/12/24 at 23:45; Stop 04/22/24 at 23:44 Meropenem 1 gm/ Sodium Chloride 100 ml @ 33.333 mls/ hr Q12H IVPB ; Start 04/12/24 at 22:00; Stop 04/12/24 at 23:44; Status DC Norepinephrine 250 ml @ 37.425 mls/ hr PROTOCOL IV Last administered on 04/13/24at 08:46; Admin Dose 37.425 MLS/HR; Start 04/12/24 at 21:00; Stop 05/12/24 at 20:59 Ondansetron HCl (zoFRAN 4MG INJ) 4 mg Q6H PRN IVP NAUSEA/VOMITING Last administered on 04/13/24at 10:55; Admin Dose 4 MG; Start 04/12/24 at 22:00; Stop 05/12/24 at 21:59 Ondansetron HCl (zoFRAN 4MG INJ) 4 mg Q6H PRN IVP NAUSEA/VOMITING; Start 04/13/24 at 11:00; Stop 05/13/24 at 10:59 Piperacillin Sod/ Tazobactam Sod 50 ml @ 200 mls/hr ONCE STAT IVPB Last administered on 04/12/24at 20:18; Admin Dose 200 MLS/HR; Start 04/12/24 at 20:04; Stop 04/12/24 at 20:18; Status DC LAB RESULTS 04/13/24 08:36: Whole Blood Ketones Quantitative 0.2 04/13/24 04:29: White Blood Count 17.4#H, Red Blood Count 3.84L, Hemoglobin 9.4L, Hematocrit 29.5L, Mean Corpuscular Volume 76.8L, Mean Corpuscular Hemoglobin 24.5L, Mean Corpuscular Hemoglobin Concent 31.9L, Red Cell Distribution Width 20.6H, Platelet Count 372, Mean Platelet Volume 9.1, Immature Granulocyte % (Auto) 0.6, Neutrophils (%) (Auto) 88.5H, Lymphocytes (%) (Auto) 3.4L, Monocytes (%) (Auto) 7.4, Eosinophils (%) (Auto) 0.0, Basophils (%) (Auto) 0.1, Neutrophils # (Auto) 15.4H, Lymphocytes # (Auto) 0.6L, Monocytes # (Auto) 1.3H, Eosinophils # (Auto) 0.00, Basophils # (Auto) 0.01, Absolute Immature Granulocyte (auto 0.11, Nucleat ed Red Blood Cells 0.0, Sodium Level 127L, Potassium Level 4.4, Chloride Level 95L, Carbon Dioxide Level 16L, Blood Urea Nitrogen 65H, Creatinine 3.5H, Glomerular Filtration Rate Calc 21, Random Glucose 179H, Total Calcium 7.9L, Magnesium Level 1.80 04/12/24 23:53: Influenza Type A Antigen Negative For Type A, Influenza Type B Antigen Negative For Type B, SARS-CoV-2, RNA, NAAT NEGATIVE SARS CoV-2 04/12/24 23:44: Lactic Acid Level 5.1H 04/12/24 21:19: Urine Color LIGHT-YELLOW, Urine Appearance CLEAR, Urine pH 5.5, Urine Specific [place] 1.010, Urine Protein NEGATIVE, Urine Glucose (UA) NEGATIVE, Urine Ketones NEGATIVE, Urine Occult Blood NEGATIVE, Urine Nitrate NEGATIVE, Urine Bilirubin NEGATIVE, Urine Urobilinogen 0.2, Urine Leukocyte Esterase NEGATIVE, Urine RBC 2-5H, Urine WBC 6-10H, Urine Squamous Epithelial Cells RARE, Urine Bacteria RARE, Urine Hyaline Casts 2-5H, Urine Other Casts 1 04/12/24 21:12: Blood Gas Specimen Type Arterial, Arterial Blood pH 7.341L, Arterial Blood Partial Pressure CO2 24L, Arterial Blood Partial Pressure O2 68.4L, Arterial Blood HCO3 12.5L, Arterial Blood Oxygen Saturation 91.2L, Arterial Blood Base Excess -11.7L, Hemoglobin (Blood Gas) 10.0L, Sodium (Blood Gas) 128L, Bedside Potassium (Blood Gas) 4.5, Bedside Chloride (Blood Gas) 103, Bedside Glucose (Blood Gas) 150H, Bedside Ionized Calcium (Blood Gas) 1.10L, Bedside Lactic Acid (Blood Gas) 5.12*H, Blood Gas Temperature 37.0, Blood Gas Vent Mode ROOMAIR, FiO2 21.0, Blood Gas Specimen Comment RB 04/12/24 20:11: Total Bilirubin 0.7, Direct Bilirubin 0.4H, Aspartate Amino Transf (AST/SGOT) 46H, Alanine Aminotransferase (ALT/SGPT) 30, Alkaline Phosphatase 494H, Ammonia 59H, Troponin I High Sensitivity 5, B-Type Natriuretic Peptide 60, Total Protein 5.1L, Albumin 1.9L, Procalcitonin 0.78H 04/12/24 19:25: White Cell Morphology Comment See comments, Red Blood Cell Morphology See comments, Lipase 119H CRISTIAN CRANE MD Apr 13, 2024 14:12
--- NOTE | 2024-04-13 15:07 | PN ---
[facility] PROGRESS NOTE Date Patient Seen: Apr 13, 2024 Time of Visit: 15:07 Supervising Physician: Dr. Farias Primary Care Physician: Dr. Ian Carter Outpatient Specialists: Inpatient Consults: PROBLEM LIST: Septic shock High anion gap metabolic acidosis- negative ketone Acute renal failure 2/2 ATN from sepsis Acute hypoxic respiratory failure Recurrent right pleural effusion- pathology report on 03/22 right pleural fluid negative for malignancy Acute cystitis Metastatic right colon adenocarcinoma to the liver Ascites with peritoneal carcinomatosis Lactic acidosis Status post colostomy History of new diagnosis of colon cancer metastasized to the liver on chemotherapy, status post colostomy diversion, diabetes mellitus, hypertension INTERVAL HISTORY: This is a 48-year-old male with past medical history of newly diagnosed colon cancer metastatic to liver on chemotherapy, status post colostomy diversion, diabetes mellitus, hypertension who came to the hospital with complaint of generalized body weakness found to be in shock state for which beyond inpatient Services is consulted . Patient is not able to give me good history and his mother is deaf, information is obtained from chart review. He is reported to have weakness along with shortness of breath, nausea, and vomiting. Patient noticed, he has been very edematous. Patient feels this is the chemotherapy symptoms. He started to have his 1st chemo two days ago after being diagnosed early this month. He received his first chemo yesterday. At this time of admission in the ED, patient is still connected to his chemotherapy infusion. Otherwise patient denies dysuria, fever, chills, diarrhea. REVIEW OF SYSTEMS: 12 point ROS reviewed with patient. Pertinent positives mentioned above. Otherwise negative. PHYSICAL EXAM: GENERAL: alert, weak, awake oriented x 3 HEENT: EOMI, Sclera non icteric, moist mucosa NECK: Supple, no JVD, trachea midline LUNGS: Clear breath sounds bilaterally. No wheezes HEART: Regular rate and rhythm. Normal S1 and S2, without murmurs ABD: Abdomen soft, nontender. Bowel sounds present EXT: No clubbing cyanosis or edema NEURO: Alert and oriented to person, follows commands Vital Signs (last 8hr) Date Time Temp Pulse Resp B/P (MAP) Pulse Ox O2 Delivery O2 Flow Rate FiO2 04/13/24 13:01 99 14 108/63 99 Nasal Cannula* 2 28 04/13/24 07:49 99 15 100/61 95 Nasal Cannula* 2 28 LABS: Hematology Labs: Test 04/13/24 04:29 04/12/24 19:25 Range/Units White Blood Count 17.4 #H 4.8-10.8 K/uL Red Blood Count 3.84 L 4.50-6.20 MIL/uL Hemoglobin 9.4 L 14.0-18.0 g/dL Hematocrit 29.5 L 42-54 % Mean Corpuscular Volume 76.8 L 79-99 fL Mean Corpuscular Hemoglobin 24.5 L 27.0-33.0 pg Mean Corpuscular Hemoglobin Concent 31.9 L 32.0-36.0 g/dL Red Cell Distribution Width 20.6 H 11.0-15.5 % Platelet Count 372 130-400 K/uL Mean Platelet Volume 9.1 7.5-10.5 fL Immature Granulocyte % (Auto) 0.6 0-1 % Neutrophils (%) (Auto) 88.5 H 40.0-77.0 % Lymphocytes (%) (Auto) 3.4 L 21.0-51.0 % Monocytes (%) (Auto) 7.4 3.0-13.0 % Eosinophils (%) (Auto) 0.0 0.0-8.0 % Basophils (%) (Auto) 0.1 0.0-5.0 % Neutrophils # (Auto) 15.4 H 1.8-7.7 K/uL Lymphocytes # (Auto) 0.6 L 1.0-4.8 K/uL Monocytes # (Auto) 1.3 H 0.1-1.0 K/uL Eosinophils # (Auto) 0.00 0.00-0.70 K/uL Basophils # (Auto) 0.01 0.00-0.20 K/uL Absolute Immature Granulocyte (auto 0.11 0-1 K/uL Nucleated Red Blood Cells 0.0 0.0-0.19 % White Cell Morphology Comment See comments Red Blood Cell Morphology See comments Chemistry Labs: Test 04/13/24 08:36 04/13/24 04:29 04/12/24 23:44 04/12/24 20:11 Range/Units Whole Blood Ketones Quantitative 0.2 0.0-0.6 mmol/L Sodium Level 127 L 136-145 mmol/L Potassium Level 4.4 3.5-5.1 mmol/L Chloride Level 95 L 101-111 mmol/L Carbon Dioxide Level 16 L 21-32 mmol/L Blood Urea Nitrogen 65 H 7-18 mg/dL Creatinine 3.5 H 0.5-1.3 mg/dL Glomerular Filtration Rate Calc 21 >90 mL/min Random Glucose 179 H 70-105 mg/dL Total Calcium 7.9 L 8.5-10.1 mg/dL Magnesium Level 1.80 1.80-2.40 mg/dL Lactic Acid Level 5.1 H 0.8-2.5 mmol/L Total Bilirubin 0.7 0.2-1.0 mg/dL Direct Bilirubin 0.4 H 0.0-0.3 mg/dL Aspartate Amino Transf (AST/SGOT) 46 H 10-37 U/L Alanine Aminotransferase (ALT/SGPT) 30 12-78 U/L Alkaline Phosphatase 494 H 50-136 U/L Ammonia 59 H 11-32 umol/L Troponin I High Sensitivity 5 4-75 ng/L B-Type Natriuretic Peptide 60 0-100 pg/mL Total Protein 5.1 L 6.0-8.3 g/dL Albumin 1.9 L 3.5-5.0 g/dL Procalcitonin 0.78 H 0.05-0.5 ng/mL Test 04/12/24 19:25 Range/Units Lipase 119 H 16-77 U/L DIAGNOSTICS / RADIOLOGY RESULTS: [ ] PLAN NEURO: Minimize central acting medications as possible. Fall Precautions. Well lighted room through the day and minimize interruptions through the night to prevent acute delirium. PULMONARY: Supplemental 02 as needed Titrate Fio2 to keep Spo2 > or = 90% DuoNebs and CPT as needed IS hourly while awake for pulmonary hygiene Out of bed to chair as tolerated CARDIOVASCULAR: Follow hemodynamics. Titrate vasopressor to keep MAP >65 or systolic blood pressure >95mmHg DRIPS: Levophed Sodium bicarb LINES: PIV Port a cath GI & NUTRITION: Continue nutritional support Aspirations precautions Prokinetic agents and laxatives as needed KIDNEYS & ELECTROLYTES: Strict monitoring of intake and output Daily weights Avoid nephrotoxic agents Monitor electrolytes and replace as needed Goal urine output of 30mL/hr or 0.5mL/kg/hr ENDOCRINE: Maintain blood glucose between 100-180 at all times. Insulin sliding scale for blood glucose management INFECTIOUS DISEASE: Trend temperature. Jackson-culture if febrile. Micro: UA Blood Antibiotics: Merem Zyvox HEMATOLOGY & COAGULATION: Monitor H&H. Keep Hgb > 7 Transfuse 1 unit of PRBC for Hgb < 7 Transfuse 1 pack of platelets of platelets < 20, 000 Watch for any signs and symptoms of bleeding SKIN: Pressure ulcer prevention per facility protocol Rehab: PT/OT Prophylaxis: GI: Protonix DVT: Heparin Code Status: Full Resuscitation Disposition: ICU Other: Total patient care time exceeds 35 minutes excluding all procedures. Case was discussed and seen with my supervising physician. The above plan was formulated and agreed upon. MAXWELL BEDOLLA OTOLARYNGOLOGY PHYSICIAN Apr 13, 2024 15:07
--- NOTE | 2024-04-13 15:30 | CONS ---
CONSULTATION NOTE Date of Service: Apr 13, 2024 Reason for Consultation: Abnormal Renal Function HISTORY OF PRESENT ILLNESS: 48 y/o male with a PMH of morbid obesity, diabetes mellitus, right inguinal hernia, Cancer colon and liver who presented to the ER with GBW, sob, nausea and vomiting 24 hours after a round of chemo therapy. Last known renal function earlier this month 22 MAR 2024 GFR 68 and Cr 1.3. Consulted for management and evaluation of renal status. Patient presented to the ER with a GFR 21 and Cr 3.4. Seen at bedside. REVIEW OF SYSTEMS CONSTITUTIONAL: Denies fever, chills, or fatigue. HEAD/FACE: No signs of trauma. EENT: Denies eye pain, blurred vision, double vision, or light sensitivity. RESPIRATORY: Denies shortness of breath, cough, wheezing CARDIOVASCULAR: Denies chest pain, palpitation, syncope GASTROINTESTINAL/ABDOMINAL: Denies abdominal pain, constipation, diarrhea, nausea or vomiting GENITOURINARY: Denies dysuria or hematuria. MUSCULOSKELETAL: Denies joint pain, tenderness, or trauma. INTEGUMENTARY: Denies rash or itchiness NEUROLOGICAL/PSYCH: Denies anxiety, depression, heat or cold intolerance. PAST MEDICAL HISTORY: Refer to HPI Coded Allergies: No Known Allergies (Unverified Allergy, Unknown, 02/21/24) PHYSICAL EXAM EYES: Anicteric. Pupils equal and reactive. HENT: No oral thrush seen, moist Oral mucosa NECK: Supple, no JVD or thyromegaly. LUNGS: Good air entry. No rales, no rhonchi. CARDIOVASCULAR: S1, S2 regular. No murmur heard. ABDOMEN: Soft, non tender, bowel sounds present, no organomegaly CENTRAL NERVOUS SYSTEM: Awake, alert, oriented x 3. No focal deficits. SKIN: No rashes, no swelling. LYMPHATICS: No peripheral lymphadenopathy MUSCULOSKELETAL: No joint swelling, erythema or tenderness. EXTREMITIES: No cyanosis or clubbing BACK: No deformity, no pressure ulcer. GENITOURINARY: No dysuria or hematuria Vital Sign (Last 24 Hours) 04/13/24 04/13/24 06:30 13:01 Temp 98.2 Pulse 99 Resp 14 B/P (MAP) 108/63 Pulse Ox 99 O2 Delivery Nasal Cannula* O2 Flow Rate 2 FiO2 28 LABS: Laboratory: Test 04/13/24 08:36 04/13/24 04:29 04/12/24 23:53 04/12/24 23:44 Range/Units Whole Blood Ketones Quantitative 0.2 0.0-0.6 mmol/L White Blood Count 17.4 #H 4.8-10.8 K/uL Red Blood Count 3.84 L 4.50-6.20 MIL/uL Hemoglobin 9.4 L 14.0-18.0 g/dL Hematocrit 29.5 L 42-54 % Mean Corpuscular Volume 76.8 L 79-99 fL Mean Corpuscular Hemoglobin 24.5 L 27.0-33.0 pg Mean Corpuscular Hemoglobin Concent 31.9 L 32.0-36.0 g/dL Red Cell Distribution Width 20.6 H 11.0-15.5 % Platelet Count 372 130-400 K/uL Mean Platelet Volume 9.1 7.5-10.5 fL Immature Granulocyte % (Auto) 0.6 0-1 % Neutrophils (%) (Auto) 88.5 H 40.0-77.0 % Lymphocytes (%) (Auto) 3.4 L 21.0-51.0 % Monocytes (%) (Auto) 7.4 3.0-13.0 % Eosinophils (%) (Auto) 0.0 0.0-8.0 % Basophils (%) (Auto) 0.1 0.0-5.0 % Neutrophils # (Auto) 15.4 H 1.8-7.7 K/uL Lymphocytes # (Auto) 0.6 L 1.0-4.8 K/uL Monocytes # (Auto) 1.3 H 0.1-1.0 K/uL Eosinophils # (Auto) 0.00 0.00-0.70 K/uL Basophils # (Auto) 0.01 0.00-0.20 K/uL Absolute Immature Granulocyte (auto 0.11 0-1 K/uL Nucleated Red Blood Cells 0.0 0.0-0.19 % Sodium Level 127 L 136-145 mmol/L Potassium Level 4.4 3.5-5.1 mmol/L Chloride Level 95 L 101-111 mmol/L Carbon Dioxide Level 16 L 21-32 mmol/L Blood Urea Nitrogen 65 H 7-18 mg/dL Creatinine 3.5 H 0.5-1.3 mg/dL Glomerular Filtration Rate Calc 21 >90 mL/min Random Glucose 179 H 70-105 mg/dL Total Calcium 7.9 L 8.5-10.1 mg/dL Magnesium Level 1.80 1.80-2.40 mg/dL Influenza Type A Antigen Negative For Type A NEGATIVE Influenza Type B Antigen Negative For Type B NEGATIVE SARS-CoV-2, RNA, NAAT NEGATIVE SARS CoV-2 NEGATIVE Lactic Acid Level 5.1 H 0.8-2.5 mmol/L Test 04/12/24 21:19 04/12/24 21:12 04/12/24 20:11 04/12/24 19:25 Range/Units Urine Color LIGHT-YELLOW YELLOW Urine Appearance CLEAR CLEAR Urine pH 5.5 5.0-8.0 Urine Specific [place] 1.010 1.001-1.031 Urine Protein NEGATIVE NEGATIVE mg/dL Urine Glucose (UA) NEGATIVE NEGATIVE mg/dL Urine Ketones NEGATIVE NEGATIVE mg/dL Urine Occult Blood NEGATIVE NEGATIVE Urine Nitrate NEGATIVE NEGATIVE Urine Bilirubin NEGATIVE NEGATIVE mg/dL Urine Urobilinogen 0.2 0.2-1.0 mg/dL Urine Leukocyte Esterase NEGATIVE NEGATIVE Tucker/uL Urine RBC 2-5 H 0-1 /HPF Urine WBC 6-10 H 0-1 /HPF Urine Squamous Epithelial Cells RARE 0-2 /HPF Urine Bacteria RARE None Seen /HPF Urine Hyaline Casts 2-5 H 0-1 /LPF /LPF Urine Other Casts 1 None Seen /LPF Blood Gas Specimen Type Arterial Arterial Blood pH 7.341 L 7.350-7.450 Arterial Blood Partial Pressure CO2 24 L 35-48 mmHg Arterial Blood Partial Pressure O2 68.4 L 83.0-108.0 mmHg Arterial Blood HCO3 12.5 L 21.0-28.0 mmol/L Arterial Blood Oxygen Saturation 91.2 L 94.0-98.0 % Arterial Blood Base Excess -11.7 L -2.0-3.0 mmol/L Hemoglobin (Blood Gas) 10.0 L 13.5-17.5 g/dL Sodium (Blood Gas) 128 L 136-145 MMOL/L Bedside Potassium (Blood Gas) 4.5 3.4-4.5 MMOL/L Bedside Chloride (Blood Gas) 103 98-107 MMOL/L Bedside Glucose (Blood Gas) 150 H 65-95 MG/DL Bedside Ionized Calcium (Blood Gas) 1.10 L 1.15-1.33 MMOL/L Bedside Lactic Acid (Blood Gas) 5.12 *H 0.36-0.75 MMOL/L Blood Gas Temperature 37.0 35.5-37.0 CELSIUS Blood Gas Vent Mode ROOMAIR ROOM AIR FiO2 21.0 % Blood Gas Specimen Comment RB Total Bilirubin 0.7 0.2-1.0 mg/dL Direct Bilirubin 0.4 H 0.0-0.3 mg/dL Aspartate Amino Transf (AST/SGOT) 46 H 10-37 U/L Alanine Aminotransferase (ALT/SGPT) 30 12-78 U/L Alkaline Phosphatase 494 H 50-136 U/L Ammonia 59 H 11-32 umol/L Troponin I High Sensitivity 5 4-75 ng/L B-Type Natriuretic Peptide 60 0-100 pg/mL Total Protein 5.1 L 6.0-8.3 g/dL Albumin 1.9 L 3.5-5.0 g/dL Procalcitonin 0.78 H 0.05-0.5 ng/mL White Cell Morphology Comment See comments Red Blood Cell Morphology See comments Lipase 119 H 16-77 U/L DIAGNOSTICS / RADIOLOGY: CT ABDOMEN/PELVIS W/O CONTRAST HISTORY: Abdominal distention COMPARISON: CT from 03/18/2024 TECHNIQUE: Multiple sequential axial images of the abdomen and pelvis were obtained from the dome of the diaphragm through symphysis pubis. Patient was not given contrast through intravenous route. Oral contrast was not given. FINDINGS: There are bilateral pleural effusions with compressive atelectasis . There is left lingular pulmonary nodule measuring 18 mm. Degenerative changes of the thoracolumbar spine are present. The heart is not enlarged. Extensive hepatic nodules are seen throughout the liver appears cirrhotic changes of the liver are noted. Liver measures 16.4 cm. Spleen measures 12 cm. Spleen, adrenal glands and pancreas are unremarkable. There is no evidence of hydronephrosis bilaterally. No evidence of renal stone is seen. Fecal material is seen in the colon. There are borderline retroperitoneal and mesenteric lymph nodes. There is ascites. Anasarca. Atherosclerotic changes are present. There appears be soft tissue mass in the region of the ascending colon measuring 8.3 x 7.7 cm with neoplastic process not excluded. There are bilateral inguinal/scrotal hernias with fluid content with right worse than left. Pelvic sidewalls are symmetric bilaterally. Bladder is well distended without wall thickening. IMPRESSION: 1. Extensive hepatic nodules. Hepatosplenomegaly. Bilateral pleural effusions with compressive atelectasis. Left lingular pulmonary nodule. Ascites. Anasarca. Soft tissue mass in the region of the ascending colon measuring 8.3 x 7.7 cm may be related to colon cancer. Clinical correlation is recommended. Borderline retroperitoneal mesenteric adenopathy is seen. Bilateral scrotal hernias with fluid content. CT was performed with one or more following dose reduction techniques: automated exposure control, adjustment of the mA and kv according to patient's size, or use of a iterative reconstruction technique.+ ASSESSMENT: NATALY JANSEN, patient did have some history of CKD 2 Last known renal function earlier this month 22 MAR 2024 GFR 68 and Cr 1.3. Diabetes HTN Hyponatremia Anemia Metabolic acidosis PLAN: Monitor Renal function: reassess after fluids FLuid intake 1.2 L Free water QD Monitor I's and O's, daily weights Continue Sodium Bicarbonate No need for ORE SAMPLER Renal diet Dose to renal clearance ALMAZ LEVY AGPCNP Apr 13, 2024 15:30
[2024-04-13] MEDS: SODIUM BICARB 8.4% 50ML SYRING 150 MEQ in DEXTROSE 5%-WATER 1,000 ML IVP SCH (18:49)
[2024-04-13] MEDS ORDERED: SODIUM BICARBONATE 650 MG TAB PO SCH (21:00)
[2024-04-14] VITALS (48 sets, daily range): BP systolic 98–124; BP diastolic 51–95; PULSE 89–100; RESP 9–24; TEMP 97.7–98.5; O2SAT 92–100
--- NOTE | 2024-04-14 00:48 | PN ---
DATE OF SERVICE: 04/13/2024 INFECTIOUS DISEASE FOLLOWUP NOTE SUBJECTIVE: The patient is seen and examined at the bedside. The patient has no fever or chills. The patient complains of some generalized weakness. The patient remains on vasopressor. No vomiting. No rashes or itchiness. Denies neck pain or neck swelling. PHYSICAL EXAMINATION: VITAL SIGNS: Temperature 98.2. EYES: No icterus. Pupils are equal and reactive. HENT: No oral thrush seen. Moist oral mucosa. NECK: Supple. No JVD. No thyromegaly. LUNGS: Good air entry. No rales. No rhonchi. CARDIOVASCULAR: S1, S2 regular. No murmur heard. ABDOMEN: Full. Soft. Nontender. Bowel sounds are present. Colostomy on the right side. CENTRAL NERVOUS SYSTEM: Alert, oriented x 3. MUSCULOSKELETAL: No focal deficits. SKIN: No rashes. No itchiness. LYMPHATIC: No peripheral lymphadenopathy. BACK: No deformity. No pressure ulcer. ASSESSMENT: A 48-year-old male presenting with weakness and fatigue. CURRENT PROBLEMS: Include: * Septic shock. * Acute renal failure. * Dehydration. * Colon cancer, on chemotherapy. * Underlying immunosuppression. * Debility. PLAN: * Continue meropenem. * Continue linezolid. * Continue colostomy care. * Continue pain management. * Continue GI prophylaxis. * Continue nutritional support. * Monitor electrolytes and replace as needed. TID: [id number] RECEIPT: [id number] [facility]
--- NOTE | 2024-04-14 04:07 | HP ---
HISTORY AND PHYSICAL DATE OF SERVICE: 04/12/2024 PRESENTING COMPLAINT: Generalized body weakness and shortness of breath. HISTORY OF PRESENT ILLNESS: This is a 48-year-old male with history of metastatic colon cancer, diabetes mellitus, malignant ascites, who presented to the Emergency Room with generalized body weakness and shortness of breath. The patient also complained of nausea and vomiting. The patient has colon cancer and receiving chemotherapy with Dr. Zhao. The patient ____ at present. In the ER, the patient was found with BP of 80/58. WBC was elevated at 12,000. The patient denied dysuria or urinary frequency. The patient also found with acute renal failure. BUN was 29, creatinine 3.4. Sodium was 125,000. PAST MEDICAL HISTORY: * Metastatic colon cancer. * Diabetes mellitus. * Obesity. * Hypertension. * Dyslipidemia. * Malignant ascites. PAST SURGICAL HISTORY: * Colostomy placement. * Colonoscopy. * EGD. * Multiple paracentesis. * Thoracentesis. ALLERGIES: No known drug allergies. HOME MEDICATIONS: Reviewed. SOCIAL HISTORY: No alcohol, tobacco or illicit drug use. FAMILY HISTORY: Positive for diabetes mellitus. REVIEW OF SYSTEMS: CONSTITUTIONAL: Positive for weakness. No fever or chills. No weight loss. EYES: No eye pain, no photophobia or diplopia. HENT: Denies sore throat, rhinorrhea or earache. NECK: No neck pain or neck swelling. RESPIRATORY: No cough, no hemoptysis or pleuritic pain. CARDIOVASCULAR: No chest pain, no palpitation or orthopnea. GASTROINTESTINAL: Positive for nausea, vomiting and abdominal distention. CENTRAL NERVOUS SYSTEM: No headache, dyspnea, or slurred speech. PSYCHIATRY: No depression. No suicidal ideation. MUSCULOSKELETAL: No joint pain or joint swelling. PHYSICAL EXAMINATION: GENERAL: Young male, awake. VITAL SIGNS: Temperature 97.9, pulse 93, respiratory rate 18, BP 80/50. EYES: No icterus. Pupils equal and reactive. HENT: No oral thrush seen. Moist oral mucosa. NECK: Supple, no JVD or thyromegaly. LUNGS: Good air entry. No rales, no rhonchi. CARDIOVASCULAR: S1, S2 regular. No murmur heard. ABDOMEN: Obese, soft. Bowel sound is present. Colostomy on the right side functioning well. CENTRAL NERVOUS SYSTEM: Awake, alert, oriented x 3. No focal deficits. SKIN: No rashes, no itchiness. LYMPHATIC: No peripheral lymphadenopathy. BACK: No deformity, no pressure ulcer. MUSCULOSKELETAL: No joint swelling, erythema or tenderness. LABORATORY DATA: Sodium 125, potassium 4.4, BUN 59, creatinine 3.4. WBC 12.4, hemoglobin 9.7, platelet 216. RADIOLOGY: CT of the abdomen results reviewed, shows ascites. Also, shows hepatic nodules. ASSESSMENT: A 48-year-old male presenting with weakness. CURRENT PROBLEMS: Include: * Septic shock. * Acute renal failure. * Metastatic colon cancer. * Diabetes mellitus. * Hyponatremia. * Anemia. * Obesity. PLAN: * Admit the patient to ICU. * The patient will be placed on vasopressor. * Start the patient on meropenem. * Oncology evaluation. * Nephrology evaluation. * ADA diet. * Insulin sliding scale. * Avoid nephrotoxic medication. * Morphine as needed for pain. * Zofran as needed for nausea and vomiting. TID: [id number] RECEIPT: [id number]
[2024-04-14 04:28] LABS: BASOPHILS # (AUTO) 0.01 K/uL (0.00-0.20); BASOPHILS % (AUTO) 0.1 % (0.0-5.0); HEMATOCRIT 29.6 % (42-54); LYMPHOCYTES # (AUTO) 0.4 K/uL (1.0-4.8); LYMPHOCYTES % (AUTO) 2.2 % (21.0-51.0); MEAN CORPUSCULAR HGB CONC 31.4 g/dL (32.0-36.0); MEAN CORPUSCULAR VOLUME 76.3 fL (79-99); MONOCYTES # (AUTO) 0.6 K/uL (0.1-1.0); MONOCYTES % (AUTO) 3.2 % (3.0-13.0); NEUTROPHILS # (AUTO) 17.1 K/uL (1.8-7.7); NEUTROPHILS % (AUTO) 93.4 % (40.0-77.0); PLATELET COUNT (AUTO) 373 K/uL (130-400); RED BLOOD CELL COUNT(AUTO) 3.88 MIL/uL (4.50-6.20); WHITE BLOOD COUNT (AUTO) 18.3 K/uL (4.8-10.8)
[2024-04-14 04:58] LABS: ALBUMIN 2.2 g/dL (3.5-5.0); BILIRUBIN,TOTAL 0.5 mg/dL (0.2-1.0); CREATININE 3.4 mg/dL (0.5-1.3); POTASSIUM 4.2 mmol/L (3.5-5.1); TOTAL PROTEIN, SERUM 5.6 g/dL (6.0-8.3)
[2024-04-14] MEDS ORDERED: ONDA-105 PO (09:24)
[2024-04-14] MEDS ORDERED: NEO/5DRO4 OP (09:24)
[2024-04-14] MEDS ORDERED: FURO20TA6 PO (09:24)
--- NOTE | 2024-04-14 10:36 | PN ---
NEPHROLOGY FOLLOWUP SUBJECTIVE: No new complaints. No major events reported by nurses. OBJECTIVE: GENERAL: The patient is not in any major acute distress. VITAL SIGNS: Blood pressure is 115/67, respirations 21, pulse 96, temperature 98.4. LUNGS: Clear to auscultation and inspection. HEART: Normal cardiac sound. ABDOMEN: Soft, nondistended. EXTREMITIES: ____. LABORATORY DATA: WBC count is 18.3, hemoglobin 9.3. Sodium is 128, potassium 4.2, BUN 64, creatinine of 3.4. ASSESSMENT: * Acute kidney injury, likely etiology is acute tubular necrosis in a patient who is admitted septic shock. * Metastatic colon carcinoma. * Diabetes mellitus, type 2. * Hyponatremia. * Anemia. * Obesity. PLAN: Continue adequate hydration. Continue antimicrobials. Avoid nephrotoxic agents. We will continue following the patient for abnormal kidney function and normal electrolytes. Coordination of care with the admitting team. TID: [id number] RECEIPT: [id number]
[2024-04-14] MEDS: PANTOPrazole 40 MG/VIAL IVP SCH (11:29)
[2024-04-14 11:58] LABS: CREATININE 3.3 mg/dL (0.5-1.3); POTASSIUM 3.9 mmol/L (3.5-5.1)
[2024-04-14] MEDS ORDERED: ALBUMIN (HUMAN) 25% 200 ML IV PRN (12:00)
--- NOTE | 2024-04-14 13:14 | PN ---
This is a 48-year-old male with history of morbid obesity, diabetes mellitus, right inguinal hernia, presented to the hospital with abdominal pain and distention. The patient noticed increasing pain for the past 48 hours, Noticed swelling to the right groin area. The patient in the ER was found to have reducible right inguinal hernia. Due to increasing distention, CT of the abdomen was done, which shows soft tissue mass in the cecum. Also, the patient was found to have multiple masses in the liver. The patient has history of weight loss. No fever, no chills. Denies diarrhea. No nausea and vomiting. Colonoscopy was done which showed possible cecal mass with almost complete obstruction. Paracentesis was done. There is suspicious for positive for malignancy. We do not have the final report, The patient presents with suspected colon cancer, but lacks a definitive tissue diagnosis. A port placement surgery was performed by Dr. Maguire, and a superficial biopsy was conducted, but the results were inconclusive and did not show cancer. Multiple lesions are visible on imaging. Patient reports a little nausea but denies any pain. Hemoglobin levels are reported as good. The patient denies bleeding from the rectum Patient had diverting colostomy. Liver biopsy was consistent with adenocarcinoma consistent with metastatic disease from the colon mass. Patient denies any obvious bleeding. This patient is ready for his palliative chemotherapy treatment. Patient refusing hospice. This patient have family issue. And his aunt actually brought him for treatment today. Patient feeling tired and fatigued. But this patient actually wanted treatment. Patient came to the emergency department with the patient hypotensive. Patient was given IV fluid. Patient on small dose of pressors. Patient was admitted to the intensive care unit. As this patient had paracentesis done with 6.5 L removed. Patient feeling a bit better. Patient also receiving albumin through the IV. Vitals: Height: 67 in; Weight: None Today; Blood pressure: 94/65, Pulse: 105, Temperature: 97 F, Respirations: 16, Pain Scale: 0 Karnofsky: Not Assessed Physical Exam: Vitals: WEIGHT: 212 LBS. General: No acute distress. Well-developed. HEENT: Normocephalic. Atraumatic. EOMI. PERRLA. Moist mucous membranes. No oral lesions. Oral cavity is clear. Neck: Supple. No cervical adenopathy. No supraclavicular adenopathy. Spine: Nontender to percussion. Lungs: No increased work of breathing. No use of accessory muscles. Heart: Good peripheral perfusion. Abdomen: Soft.Colostomy bag in place. Extremities: No lower extremity edema. No cyanosis. No clubbing. Normal 2+ pulses bilaterally. Neurological: Intact. Impression: 1. New diagnosis of metastatic right colon cancer to the liver. Biopsy from the liver was positive for adenocarcinoma consistent with colon origin. Status post colostomy bag in place. This patient have family issue. And his aunt actually brought him for treatment today. Patient feeling tired and fatigued. But this patient actually wanted treatment. Patient was started on chemotherapy treatment with 5-FU irinotecan. Patient received his first cycle. Patient on 5-FU pump 2. Diabetes mellitus 3. Persistent nausea 4. Anemia 5. Hypotension 6. Ascites status post paracentesis for 6.5 L Plan 1. We will hold chemotherapy treatment. We stopped the continuous infusion chemo yesterday. It is okay to use his for Sydni 2. No need for blood product transfusion 3. This patient have metastatic colorectal cancer with the patient refusing hospice. 4. Continue care as per primary 5. Patient also Refusing DNR/DNI 6. If this patient stable maybe he could be discharged to follow-up with me in 2 weeks to the office Vitals/Labs Vital Signs Date Time Temp Pulse Resp B/P (MAP) Pulse Ox O2 Delivery O2 Flow Rate FiO2 04/14/24 10:30 96 10 113/62 (79) 96 04/14/24 08:00 Nasal Cannula* 2 28 04/14/24 08:00 97.7 Laboratory Tests 04/14/24 04:17 04/14/24 11:28 Medications Current Medications Sodium Chloride 1,000 ml @ 100 mls/hr ONCE ONCE IV Last administered on 04/12/24at 20:18; Start 04/12/24 at 20:00; Stop 04/13/24 at 05:59; Status DC Ondansetron HCl 4 mg ONCE ONCE IVP Last administered on 04/12/24at 20:19; Start 04/12/24 at 20:00; Stop 04/12/24 at 20:06; Status DC Piperacillin Sod/ Tazobactam Sod 50 ml @ 200 mls/hr ONCE STAT IVPB Last administered on 04/12/24at 20:18; Start 04/12/24 at 20:04; Stop 04/12/24 at 20:18; Status DC Albumin Human 50 ml @ 0 mls/hr AD IV Last administered on 04/12/24at 20:59; Start 04/12/24 at 20:30; Stop 04/14/24 at 08:56; Status DC Norepinephrine 250 ml @ 37.425 mls/ hr PROTOCOL IV Last administered on 04/14/24at 08:48; Start 04/12/24 at 21:00; Stop 05/12/24 at 20:59 Meropenem 1 gm/ Sodium Chloride 100 ml @ 33.333 mls/ hr Q12H IVPB; Start 04/12/24 at 22:00; Stop 04/12/24 at 23:44; Status DC Linezolid 300 ml @ 150 mls/hr Q12H IV Last administered on 04/14/24at 09:34; Start 04/12/24 at 22:00; Stop 04/22/24 at 21:59 Acetaminophen 650 mg Q6H PRN RC; Start 04/12/24 at 22:00; Stop 05/12/24 at 21:59 Ondansetron HCl 4 mg Q6H PRN IVP Last administered on 04/14/24at 06:22; Start 04/12/24 at 22:00; Stop 04/14/24 at 08:56; Status DC Heparin Sodium (Porcine) 5,000 unit Q12H SQ Last administered on 04/14/24at 09:37; Start 04/12/24 at 22:00; Stop 05/12/24 at 21:59 Sodium Bicarbonate 100 meq ONCE ONCE IV Last administered on 04/12/24at 23:52; Start 04/13/24 at 00:00; Stop 04/13/24 at 00:01; Status DC Meropenem 1 gm Q12H IVPB Last administered on 04/14/24at 00:14; Start 04/12/24 at 23:45; Stop 04/14/24 at 08:57; Status DC Sodium Chloride 1,275 ml @ 425 mls/hr ONCE ONCE IV Last administered on 04/13/24at 08:45; Start 04/13/24 at 08:30; Stop 04/13/24 at 11:29; Status DC Ondansetron HCl 4 mg Q6H PRN IVP; Start 04/13/24 at 11:00; Stop 05/13/24 at 10:59 Morphine Sulfate 2 mg [id number] ONCE IVP Last administered on 04/13/24at 10:56; Start 04/13/24 at 12:00; Stop 04/13/24 at 12:01; Status DC Cyclobenzaprine HCl 500 mg QIDP PRN PO; Start 04/13/24 at 13:00; Stop 04/13/24 at 17:17; Status DC Sodium Bicarbonate 150 meq/Dextrose 1,150 ml @ 75 mls/hr [id number] IVP Last administered on 04/14/24at 10:11; Start 04/13/24 at 15:30; Stop 05/13/24 at 15:29 Sodium Bicarbonate 650 mg BID PO; Start 04/13/24 at 21:00; Stop 04/13/24 at 15:23; Status DC Cyclobenzaprine HCl 5 mg QIDP PRN PO; Start 04/13/24 at 17:30; Stop 05/13/24 at 17:29 Meropenem 1 gm/ Sodium Chloride 100 ml @ 33.333 mls/ hr Q24H IVPB; Start 04/15/24 at 01:00; Stop 04/25/24 at 00:59 Pantoprazole Sodium 40 mg DAILY IVP Last administered on 04/14/24at 11:29; Start 04/14/24 at 11:30; Stop 05/14/24 at 11:29 Albumin Human 200 ml @ 0 mls/hr ONCE PRN IV; Start 04/14/24 at 12:00; Stop 04/15/24 at 11:59 CRISTIAN CRANE MD Apr 14, 2024 13:14
[2024-04-14 13:48] LABS: ALBUMIN,BODY FLUID < 0.6 g/dL; TOTAL PROTEIN,BODY FLUID < 2.0 g/dL
--- NOTE | 2024-04-14 13:56 | HMCIMG ---
US ABDOMINAL PARACENTESIS IR HISTORY: Ascites COMPARISON: None TECHNIQUE: Informed consent was obtained. Risks and benefits were explained to the patient. A timeout was performed. Patient was prepped and draped in a sterile fashion. Local anesthetics was given as required. Under ultrasound guidance, ascites fluid was localized. Paracentesis was performed. FINDINGS: 5.5 L of yellowish fluid was aspirated. Less than 2 cc blood loss is noted. Patient tolerated procedure without complication. Patient left the department in good condition. IMPRESSION: 1. Uncomplicated ultrasound guidance paracentesis.
[2024-04-14 13:58] LABS: APPEARANCE BODY FLUID SLIGHTLY CLOUDY (CLEAR); COLOR,BODY FLUID LT YELLOW (LT YELLOW); SPECIMENTYPE,BODY FLUID ASCITES
[2024-04-14 13:59] LABS: TOTAL VOLUME,BODY FLUID 6500 mL
[2024-04-14 14:06] LABS: BODY FLUID RBC 480 /cu. mm.; BODY FLUID WBC 268 /cu. mm.
--- NOTE | 2024-04-14 14:12 | PN ---
[facility] PROGRESS NOTE Date Patient Seen: Apr 14, 2024 Time of Visit: 13:57 Supervising Physician: Dr. Dove Primary Care Physician: Dr. Ian Carter Outpatient Specialists: Inpatient Consults: Dr. Jimenez, Dr. Zhao PROBLEM LIST: Sepsis with septic shock, in need of pressor Acute hypoxic respiratory failure, in need of BIPAP Recurrent right pleural effusion- pathology report on 03/22 right pleural fluid negative for malignancy Acute cystitis Metastatic right colon adenocarcinoma to the liver Ascites with peritoneal carcinomatosis Lactic acidosis Metastatic right colon cancer to the liver, new diagnosis -Status post colostomy bag in place. - Biopsy from the liver was positive for adenocarcinoma consistent with colon origin -Started on chemotherapy treatment with 5-FU irinotecan, received his first cycle. Patient on 5-FU pump Metabolic acidosis Acute renal failure Frail/ debility Diabetes mellitus Persistent nausea Anemia INTERVAL HISTORY: This is a 48-year-old male with past medical history of newly diagnosed colon cancer metastatic to liver on chemotherapy, status post colostomy diversion, diabetes mellitus, hypertension who came to the hospital with complaint of generalized body weakness found to be in shock state for which beyond inpatient Services is consulted . Patient is not able to give me good history and his mother is deaf, information is obtained from chart review. He is reported to have weakness along with shortness of breath, nausea, and vomiting. Patient noticed, he has been very edematous. Patient feels this is the chemotherapy symptoms. He started to have his 1st chemo two days ago after being diagnosed early this month. He received his first chemo yesterday. At this time of admission in the ED, patient is still connected to his chemotherapy infusion. Otherwise patient denies dysuria, fever, chills, diarrhea. 04/14 - Patient seen at bedside , patient is anxious , alert oriented to time place person. patient has been weaned off of levophed. Metastatic cancer to liver newly diagnosed. paracentesis done today,awaiting the fluid analysis. colostomy bag has 400 ml of bilious drainage . Patients abnormal labs WBC trended up to 18.3 from 12.4 and HgB - 9.3 , Na - 128, Lactic acid - 5.12, Ph - 7.34, Pco2 - 24, Hco3 - 12.5, Cr - 3.4. Case followed by Oncology and Infectious disease. Patient's vitals Temp - 98.4, SD - 96, RR - 21, BP - 115/67, Sat - 96% on RA. Patient refused hospice and is full code. Patient weaned off BIPAP . If stable downgrade to medical floor in the evening. REVIEW OF SYSTEMS: 12 point ROS reviewed with patient. Pertinent positives mentioned above. Otherwise negative. PHYSICAL EXAM: GENERAL: alert, weak, awake oriented x 3 HEENT: EOMI, Sclera non icteric, moist mucosa NECK: Supple, no JVD, trachea midline LUNGS: Clear breath sounds bilaterally. No wheezes HEART: Regular rate and rhythm. Normal S1 and S2, without murmurs ABD: Abdomen soft, nontender. Bowel sounds present EXT: No clubbing cyanosis or edema NEURO: Alert and oriented to person, follows commands Vital Signs (last 8hr) Date Time Temp Pulse Resp B/P (MAP) Pulse Ox O2 Delivery O2 Flow Rate FiO2 04/14/24 13:23 97.9 04/14/24 12:30 95 17 113/62 (79) 94 04/14/24 12:15 98 16 116/63 (80) 93 04/14/24 12:00 97.9 98 14 110/61 (77) 93 04/14/24 12:00 94 Room Air* 0 21 04/14/24 11:45 96 18 104/64 (77) 93 04/14/24 11:30 97 12 103/58 (73) 94 04/14/24 11:15 97 15 99/67 (78) 94 04/14/24 11:00 98 22 107/67 (80) 95 04/14/24 10:45 95 13 112/65 (81) 96 04/14/24 10:30 96 10 113/62 (79) 96 04/14/24 10:00 94 10 100/62 (75) 95 04/14/24 09:30 96 23 112/64 (80) 93 04/14/24 09:00 93 18 119/65 (83) 96 04/14/24 08:48 109/64 04/14/24 08:30 100 17 109/64 (79) 95 04/14/24 08:00 96 Nasal Cannula* 2 28 04/14/24 08:00 97.7 04/14/24 08:00 97.7 96 20 117/67 (84) 96 04/14/24 07:30 100 15 105/53 (70) 96 04/14/24 07:00 96 14 124/62 (82) 96 04/14/24 06:30 96 14 124/62 (82) 96 04/14/24 06:00 99 17 112/64 (80) 95 LABS: Hematology Labs: Test 04/14/24 04:17 04/12/24 19:25 Range/Units White Blood Count 18.3 H 4.8-10.8 K/uL Red Blood Count 3.88 L 4.50-6.20 MIL/uL Hemoglobin 9.3 L 14.0-18.0 g/dL Hematocrit 29.6 L 42-54 % Mean Corpuscular Volume 76.3 L 79-99 fL Mean Corpuscular Hemoglobin 24.0 L 27.0-33.0 pg Mean Corpuscular Hemoglobin Concent 31.4 L 32.0-36.0 g/dL Red Cell Distribution Width 21.0 H 11.0-15.5 % Platelet Count 373 130-400 K/uL Mean Platelet Volume 9.2 7.5-10.5 fL Immature Granulocyte % (Auto) 1.1 H 0-1 % Neutrophils (%) (Auto) 93.4 H 40.0-77.0 % Lymphocytes (%) (Auto) 2.2 L 21.0-51.0 % Monocytes (%) (Auto) 3.2 3.0-13.0 % Eosinophils (%) (Auto) 0.0 0.0-8.0 % Basophils (%) (Auto) 0.1 0.0-5.0 % Neutrophils # (Auto) 17.1 H 1.8-7.7 K/uL Lymphocytes # (Auto) 0.4 L 1.0-4.8 K/uL Monocytes # (Auto) 0.6 0.1-1.0 K/uL Eosinophils # (Auto) 0.00 0.00-0.70 K/uL Basophils # (Auto) 0.01 0.00-0.20 K/uL Absolute Immature Granulocyte (auto 0.20 0-1 K/uL Nucleated Red Blood Cells 0.0 0.0-0.19 % White Cell Morphology Comment See comments Red Blood Cell Morphology See comments Chemistry Labs: Test 04/14/24 11:28 04/14/24 04:17 04/13/24 08:36 04/13/24 04:29 Range/Units Sodium Level 132 L 136-145 mmol/L Potassium Level 3.9 3.5-5.1 mmol/L Chloride Level 97 L 101-111 mmol/L Carbon Dioxide Level 21 21-32 mmol/L Blood Urea Nitrogen 68 H 7-18 mg/dL Creatinine 3.3 H 0.5-1.3 mg/dL Glomerular Filtration Rate Calc 22 >90 mL/min Random Glucose 219 H 70-105 mg/dL Total Calcium 7.6 L 8.5-10.1 mg/dL Albumin 2.3 L 3.5-5.0 g/dL Total Bilirubin 0.5 0.2-1.0 mg/dL Aspartate Amino Transf (AST/SGOT) 56 H 10-37 U/L Alanine Aminotransferase (ALT/SGPT) 32 12-78 U/L Alkaline Phosphatase 447 H 50-136 U/L Total Protein 5.6 L 6.0-8.3 g/dL Whole Blood Ketones Quantitative 0.2 0.0-0.6 mmol/L Magnesium Level 1.80 1.80-2.40 mg/dL Test 04/12/24 23:44 04/12/24 20:11 04/12/24 19:25 Range/Units Lactic Acid Level 5.1 H 0.8-2.5 mmol/L Direct Bilirubin 0.4 H 0.0-0.3 mg/dL Ammonia 59 H 11-32 umol/L Troponin I High Sensitivity 5 4-75 ng/L B-Type Natriuretic Peptide 60 0-100 pg/mL Procalcitonin 0.78 H 0.05-0.5 ng/mL Lipase 119 H 16-77 U/L DIAGNOSTICS / RADIOLOGY RESULTS: PATIENT: NAPOLEON HOOVER JR MR#: [id number] : 1975 SEX: M AGE: 48 LOCATION: [facility] ORDER 16 STATUS: ADM IN REPORT#: [id number] SERVICE 11 REASON: abdominal distension ORDERING PHYSICIAN: VIKAS GOLD PROCEDURE: ABD PEL WO - CT ABDOMEN/PELVIS W/O CONTRAST CT ABDOMEN/PELVIS W/O CONTRAST HISTORY: Abdominal distention COMPARISON: CT from 03/18/2024 TECHNIQUE: Multiple sequential axial images of the abdomen and pelvis were obtained from the dome of the diaphragm through symphysis pubis. Patient was not given contrast through intravenous route. Oral contrast was not given. FINDINGS: There are bilateral pleural effusions with compressive atelectasis . There is left lingular pulmonary nodule measuring 18 mm. Degenerative changes of the thoracolumbar spine are present. The heart is not enlarged. Extensive hepatic nodules are seen throughout the liver appears cirrhotic changes of the liver are noted. Liver measures 16.4 cm. Spleen measures 12 cm. Spleen, adrenal glands and pancreas are unremarkable. There is no evidence of hydronephrosis bilaterally. No evidence of renal stone is seen. Fecal material is seen in the colon. There are borderline retroperitoneal and mesenteric lymph nodes. There is ascites. Anasarca. Atherosclerotic changes are present. There appears be soft tissue mass in the region of the ascending colon measuring 8.3 x 7.7 cm with neoplastic process not excluded. There are bilateral inguinal/scrotal hernias with fluid content with right worse than left. Pelvic sidewalls are symmetric bilaterally. Bladder is well distended without wall thickening. IMPRESSION: 1. Extensive hepatic nodules. Hepatosplenomegaly. Bilateral pleural effusions with compressive atelectasis. Left lingular pulmonary nodule. Ascites. Anasarca. Soft tissue mass in the region of the ascending colon measuring 8.3 x 7.7 cm may be related to colon cancer. Clinical correlation is recommended. Borderline retroperitoneal mesenteric adenopathy is seen. Bilateral scrotal hernias with fluid content. CT was performed with one or more following dose reduction techniques: automated exposure control, adjustment of the mA and kv according to patient's size, or use of a iterative reconstruction technique.+ DICTATED BY: COCO MAYO MD DATE: 04/13/24116 ELECTRONICALLY SIGNED BY: COCO MAYO MD DATE: 04/13/24127 PATIENT: NAPOLEON HOOVER JR MR#: [id number] : 1975 SEX: M AGE: 48 LOCATION: [facility] ORDER 52 STATUS: REG ER REPORT#: [id number] SERVICE 51 REASON: sob ORDERING PHYSICIAN: JOHNNIE SAVAGE MD PROCEDURE: CXR1VW - CHEST 1VW CHEST 1VW CLINICAL HISTORY: sob COMPARISON: 03/22/2024 TECHNIQUE: Single view of the chest was obtained. FINDINGS: There is moderate to large right and likely small left pleural effusion with atelectasis. The chest port cardia mediastinal silhouette and bony structures are stable. IMPRESSION: Right greater than left bilateral pleural effusions with atelectasis. DICTATED BY: JEAN ROSENTHAL DO DATE: 04/12/242156 ELECTRONICALLY SIGNED BY: JEAN ROSENTHAL DO DATE: 04/12/242199 PLAN Continuous cardiac monitoring. Continue Levophed IV drip to keep MAP above 65. Continue BIPAP, titrate to keep O2 above 92%. NEURO: Minimize central acting medications as possible. Fall Precautions. Well lighted room through the day and minimize interruptions through the night to prevent acute delirium. PULMONARY: Supplemental 02 as needed Titrate Fio2 to keep Spo2 > or = 90% DuoNebs and CPT as needed IS hourly while awake for pulmonary hygiene Out of bed to chair as tolerated VAP Bundle CARDIOVASCULAR: Follow hemodynamics. Titrate vasopressor to keep MAP >65 or systolic blood pressure >95mmHg GI & NUTRITION: Continue nutritional support Aspirations precautions Prokinetic agents and laxatives as needed GI prophylaxis with Protonix KIDNEYS & ELECTROLYTES: Strict monitoring of intake and output Daily weights Avoid nephrotoxic agents Monitor electrolytes and replace as needed Goal urine output of 30mL/hr or 0.5mL/kg/hr ENDOCRINE: Maintain blood glucose between 100-180 at all times. Insulin sliding scale for blood glucose management INFECTIOUS DISEASE: Trend temperature. Jackson-culture if febrile. On Meropenem and Linezolid HEMATOLOGY & COAGULATION: Monitor H&H. Keep Hgb > 7 Transfuse 1 unit of PRBC for Hgb < 7 Transfuse 1 pack of platelets of platelets < 20, 000 Watch for any signs and symptoms of bleeding DVT prophylaxis with Heparin SKIN: Pressure ulcer prevention per facility protocol Rehab: PT/OT Code Status: Full Resuscitation Disposition: ICU ROD ZULETA MD Apr 14, 2024 14:12 MAXWELL BEDOLLA CNP Apr 14, 2024 16:28
[2024-04-14] MEDS ORDERED: DEXTROSE 50%-WATER 50 ML DISP.SYRIN IV PRN (16:00)
[2024-04-14] MEDS ORDERED: GLUCAGON 1MG KIT 1 MG ML IM PRN (16:00)
--- NOTE | 2024-04-14 16:29 | PN ---
[facility] PROGRESS NOTE Date Patient Seen: Apr 14, 2024 Time of Visit: 16:28 Supervising Physician: Dr. Dove Primary Care Physician: Dr. Ian Carter Outpatient Specialists: Inpatient Consults: Dr. Jimenez, Dr. Zhao PROBLEM LIST: Sepsis with septic shock, in need of pressor Acute hypoxic respiratory failure, in need of BIPAP Recurrent right pleural effusion- pathology report on 03/22 right pleural fluid negative for malignancy Acute cystitis Metastatic right colon adenocarcinoma to the liver Ascites with peritoneal carcinomatosis Lactic acidosis Metastatic right colon cancer to the liver, new diagnosis -Status post colostomy bag in place. - Biopsy from the liver was positive for adenocarcinoma consistent with colon origin -Started on chemotherapy treatment with 5-FU irinotecan, received his first cycle. Patient on 5-FU pump Metabolic acidosis Acute renal failure Frail/ debility Diabetes mellitus Persistent nausea Anemia INTERVAL HISTORY: This is a 48-year-old male with past medical history of newly diagnosed colon cancer metastatic to liver on chemotherapy, status post colostomy diversion, diabetes mellitus, hypertension who came to the hospital with complaint of generalized body weakness found to be in shock state for which beyond inpatient Services is consulted . Patient is not able to give me good history and his mother is deaf, information is obtained from chart review. He is reported to have weakness along with shortness of breath, nausea, and vomiting. Patient noticed, he has been very edematous. Patient feels this is the chemotherapy symptoms. He started to have his 1st chemo two days ago after being diagnosed early this month. He received his first chemo yesterday. At this time of admission in the ED, patient is still connected to his chemotherapy infusion. Otherwise patient denies dysuria, fever, chills, diarrhea. 04/14 - Patient seen at bedside , patient is anxious , alert oriented to time place person. patient has been weaned off of levophed. Metastatic cancer to liver newly diagnosed. paracentesis done today,awaiting the fluid analysis. colostomy bag has 400 ml of bilious drainage . Patients abnormal labs WBC trended up to 18.3 from 12.4 and HgB - 9.3 , Na - 128, Lactic acid - 5.12, Ph - 7.34, Pco2 - 24, Hco3 - 12.5, Cr - 3.4. Case followed by Oncology and Infectious disease. Patient's vitals Temp - 98.4, IN - 96, RR - 21, BP - 115/67, Sat - 96% on RA. Patient refused hospice and is full code. Patient weaned off BIPAP . If stable downgrade to medical floor in the evening. REVIEW OF SYSTEMS: 12 point ROS reviewed with patient. Pertinent positives mentioned above. Otherwise negative. PHYSICAL EXAM: GENERAL: alert, weak, awake oriented x 3 HEENT: EOMI, Sclera non icteric, moist mucosa NECK: Supple, no JVD, trachea midline LUNGS: Clear breath sounds bilaterally. No wheezes HEART: Regular rate and rhythm. Normal S1 and S2, without murmurs ABD: Abdomen soft, nontender. Bowel sounds present EXT: No clubbing cyanosis or edema NEURO: Alert and oriented to person, follows commands Vital Signs (last 8hr) Date Time Temp Pulse Resp B/P (MAP) Pulse Ox O2 Delivery O2 Flow Rate FiO2 04/14/24 16:04 92 Room Air* 0 21 04/14/24 16:00 98.1 89 9 103/58 92 Room Air 04/14/24 15:30 93 14 98/60 92 Room Air 04/14/24 15:00 92 18 102/55 91 Room Air 04/14/24 14:30 91 16 106/59 93 Room Air 04/14/24 14:00 90 18 102/58 93 Room Air 04/14/24 13:23 97.9 04/14/24 12:30 95 17 113/62 (79) 94 04/14/24 12:15 98 16 116/63 (80) 93 04/14/24 12:00 97.9 98 14 110/61 (77) 93 04/14/24 12:00 94 Room Air* 0 21 04/14/24 11:45 96 18 104/64 (77) 93 04/14/24 11:30 97 12 103/58 (73) 94 04/14/24 11:15 97 15 99/67 (78) 94 04/14/24 11:00 98 22 107/67 (80) 95 04/14/24 10:45 95 13 112/65 (81) 96 04/14/24 10:30 96 10 113/62 (79) 96 04/14/24 10:00 94 10 100/62 (75) 95 04/14/24 09:30 96 23 112/64 (80) 93 04/14/24 09:00 93 18 119/65 (83) 96 04/14/24 08:48 109/64 04/14/24 08:30 100 17 109/64 (79) 95 LABS: Hematology Labs: Test 04/14/24 04:17 04/12/24 19:25 Range/Units White Blood Count 18.3 H 4.8-10.8 K/uL Red Blood Count 3.88 L 4.50-6.20 MIL/uL Hemoglobin 9.3 L 14.0-18.0 g/dL Hematocrit 29.6 L 42-54 % Mean Corpuscular Volume 76.3 L 79-99 fL Mean Corpuscular Hemoglobin 24.0 L 27.0-33.0 pg Mean Corpuscular Hemoglobin Concent 31.4 L 32.0-36.0 g/dL Red Cell Distribution Width 21.0 H 11.0-15.5 % Platelet Count 373 130-400 K/uL Mean Platelet Volume 9.2 7.5-10.5 fL Immature Granulocyte % (Auto) 1.1 H 0-1 % Neutrophils (%) (Auto) 93.4 H 40.0-77.0 % Lymphocytes (%) (Auto) 2.2 L 21.0-51.0 % Monocytes (%) (Auto) 3.2 3.0-13.0 % Eosinophils (%) (Auto) 0.0 0.0-8.0 % Basophils (%) (Auto) 0.1 0.0-5.0 % Neutrophils # (Auto) 17.1 H 1.8-7.7 K/uL Lymphocytes # (Auto) 0.4 L 1.0-4.8 K/uL Monocytes # (Auto) 0.6 0.1-1.0 K/uL Eosinophils # (Auto) 0.00 0.00-0.70 K/uL Basophils # (Auto) 0.01 0.00-0.20 K/uL Absolute Immature Granulocyte (auto 0.20 0-1 K/uL Nucleated Red Blood Cells 0.0 0.0-0.19 % White Cell Morphology Comment See comments Red Blood Cell Morphology See comments Chemistry Labs: Test 04/14/24 11:28 04/14/24 04:17 04/13/24 08:36 04/13/24 04:29 Range/Units Sodium Level 132 L 136-145 mmol/L Potassium Level 3.9 3.5-5.1 mmol/L Chloride Level 97 L 101-111 mmol/L Carbon Dioxide Level 21 21-32 mmol/L Blood Urea Nitrogen 68 H 7-18 mg/dL Creatinine 3.3 H 0.5-1.3 mg/dL Glomerular Filtration Rate Calc 22 >90 mL/min Random Glucose 219 H 70-105 mg/dL Total Calcium 7.6 L 8.5-10.1 mg/dL Albumin 2.3 L 3.5-5.0 g/dL Total Bilirubin 0.5 0.2-1.0 mg/dL Aspartate Amino Transf (AST/SGOT) 56 H 10-37 U/L Alanine Aminotransferase (ALT/SGPT) 32 12-78 U/L Alkaline Phosphatase 447 H 50-136 U/L Total Protein 5.6 L 6.0-8.3 g/dL Whole Blood Ketones Quantitative 0.2 0.0-0.6 mmol/L Magnesium Level 1.80 1.80-2.40 mg/dL Test 04/12/24 23:44 04/12/24 20:11 04/12/24 19:25 Range/Units Lactic Acid Level 5.1 H 0.8-2.5 mmol/L Direct Bilirubin 0.4 H 0.0-0.3 mg/dL Ammonia 59 H 11-32 umol/L Troponin I High Sensitivity 5 4-75 ng/L B-Type Natriuretic Peptide 60 0-100 pg/mL Procalcitonin 0.78 H 0.05-0.5 ng/mL Lipase 119 H 16-77 U/L DIAGNOSTICS / RADIOLOGY RESULTS: [ ] PLAN Continuous cardiac monitoring. Continue Levophed IV drip to keep MAP above 65. Continue BIPAP, titrate to keep O2 above 92%. NEURO: Minimize central acting medications as possible. Fall Precautions. Well lighted room through the day and minimize interruptions through the night to prevent acute delirium. PULMONARY: Supplemental 02 as needed Titrate Fio2 to keep Spo2 > or = 90% DuoNebs and CPT as needed IS hourly while awake for pulmonary hygiene Out of bed to chair as tolerated VAP Bundle CARDIOVASCULAR: Follow hemodynamics. Titrate vasopressor to keep MAP >65 or systolic blood pressure >95mmHg GI & NUTRITION: Continue nutritional support Aspirations precautions Prokinetic agents and laxatives as needed GI prophylaxis with Protonix KIDNEYS & ELECTROLYTES: Strict monitoring of intake and output Daily weights Avoid nephrotoxic agents Monitor electrolytes and replace as needed Goal urine output of 30mL/hr or 0.5mL/kg/hr ENDOCRINE: Maintain blood glucose between 100-180 at all times. Insulin sliding scale for blood glucose management INFECTIOUS DISEASE: Trend temperature. Jackson-culture if febrile. On Meropenem and Linezolid HEMATOLOGY & COAGULATION: Monitor H&H. Keep Hgb > 7 Transfuse 1 unit of PRBC for Hgb < 7 Transfuse 1 pack of platelets of platelets < 20, 000 Watch for any signs and symptoms of bleeding DVT prophylaxis with Heparin SKIN: Pressure ulcer prevention per facility protocol Rehab: PT/OT Code Status: Full Resuscitation Disposition: Downgrade if stable MAXWELL BEDOLLA CNP Apr 14, 2024 16:29
[2024-04-14] MEDS: INSULIN humuLIN R 100 UNIT/ML 3ML SQ SCH (16:30)
[2024-04-14 18:30] LABS: CREATININE 3.1 mg/dL (0.5-1.3); POTASSIUM 3.7 mmol/L (3.5-5.1)
--- NOTE | 2024-04-14 21:42 | PN ---
INFECTIOUS DISEASE FOLLOWUP NOTE DATE OF SERVICE: 04/14/2024 SUBJECTIVE: The patient is seen and examined at bedside today. No fever, no chills. The patient remained in the ICU. Remained on vasopressor. Paracentesis was done today, about 6 liters removed. No neck pain or neck swelling. No bleeding tendency. PHYSICAL EXAMINATION: VITAL SIGNS: Temperature 99.0. EYES: No icterus. Pupils equal and reactive. HENT: No oral thrush seen. Moist oral mucosa. NECK: Supple. No JVD or thyromegaly. LUNGS: Good air entry. No rales, no rhonchi. CARDIOVASCULAR: S1, S2 regular. No murmur heard. ABDOMEN: Obese, soft. Bowel sounds present. There is ascites. Colostomy on the right side is functioning well. CENTRAL NERVOUS SYSTEM: Awake, alert, oriented x 3, bedbound debility. SKIN: No rashes, no itchiness. LYMPHATIC: No peripheral lymphadenopathy. BACK: No deformity, no pressure ulcer. LABORATORY DATA: WBC 10.2, hemoglobin 9.3, platelet 273. Sodium 120, potassium 4.2, BUN 64, creatinine 3.4. ASSESSMENT: A 48-year-old male with multiple problems, which include: * Septic shock. * Metastatic colon cancer. * Acute renal failure. * Hyponatremia. * Dehydration. * Anemia. * Underlying immunosuppression. PLAN: * Continue critical support. * Continue vasopressor. * Continue meropenem. * Continue linezolid. * Continue colostomy care. * Monitor electrolytes. * Continue DVT prophylaxis. * Avoid nephrotoxic medication. TID: [id number] RECEIPT: [id number]
[2024-04-14 21:58] LABS: BF EOSINOPHIL 3 %; BF LYMPHOCYTE 70 %; BF MACROPHAGE 26; BF TOTAL CELLS COUNTED 100
[2024-04-14] MEDS: CYCLOBENZAPRINE HCL 10 MG TABLET PO PRN (22:49)
[2024-04-15] VITALS (13 sets, daily range): BP systolic 93–104; BP diastolic 52–64; PULSE 86–102; RESP 11–21; TEMP 97.8–98.3; O2SAT 94–98
[2024-04-15 00:55] LABS: CREATININE 2.9 mg/dL (0.5-1.3); POTASSIUM 3.9 mmol/L (3.5-5.1)
[2024-04-15] MEDS: MEROPENEM 1 GM in 0.9%NACL 100ML IVPB SCH (01:24)
[2024-04-15 04:34] LABS: BASOPHILS # (AUTO) 0.02 K/uL (0.00-0.20); BASOPHILS % (AUTO) 0.1 % (0.0-5.0); HEMATOCRIT 25.7 % (42-54); IMMATURE GRANULOCYTE ABSOLUTE 0.15 K/uL (0-1); LYMPHOCYTES # (AUTO) 0.4 K/uL (1.0-4.8); LYMPHOCYTES % (AUTO) 2.6 % (21.0-51.0); MEAN CORPUSCULAR HEMOGLOBIN 24.6 pg (27.0-33.0); MEAN CORPUSCULAR HGB CONC 32.7 g/dL (32.0-36.0); MEAN CORPUSCULAR VOLUME 75.4 fL (79-99); MONOCYTES # (AUTO) 0.2 K/uL (0.1-1.0); MONOCYTES % (AUTO) 1.2 % (3.0-13.0); NEUTROPHILS # (AUTO) 13.8 K/uL (1.8-7.7); NEUTROPHILS % (AUTO) 95.1 % (40.0-77.0); PLATELET COUNT (AUTO) 175 K/uL (130-400); RED BLOOD CELL COUNT(AUTO) 3.41 MIL/uL (4.50-6.20); RED CELL DISTRIBUTION WIDTH 20.8 % (11.0-15.5); WHITE BLOOD COUNT (AUTO) 14.5 K/uL (4.8-10.8)
[2024-04-15 04:49] LABS: ALBUMIN 2.5 g/dL (3.5-5.0); BILIRUBIN,TOTAL 0.6 mg/dL (0.2-1.0); CREATININE 2.9 mg/dL (0.5-1.3); POTASSIUM 3.6 mmol/L (3.5-5.1)
[2024-04-15 09:33] LABS: BASOPHILS # (AUTO) 0.01 K/uL (0.00-0.20); BASOPHILS % (AUTO) 0.1 % (0.0-5.0); HEMATOCRIT 29.1 % (42-54); IMMATURE GRANULOCYTE ABSOLUTE 0.18 K/uL (0-1); LYMPHOCYTES # (AUTO) 0.6 K/uL (1.0-4.8); LYMPHOCYTES % (AUTO) 3.8 % (21.0-51.0); MEAN CORPUSCULAR HEMOGLOBIN 24.1 pg (27.0-33.0); MEAN CORPUSCULAR HGB CONC 31.6 g/dL (32.0-36.0); MEAN CORPUSCULAR VOLUME 76.2 fL (79-99); MONOCYTES # (AUTO) 0.2 K/uL (0.1-1.0); MONOCYTES % (AUTO) 1.5 % (3.0-13.0); NEUTROPHILS # (AUTO) 14.5 K/uL (1.8-7.7); NEUTROPHILS % (AUTO) 93.4 % (40.0-77.0); PLATELET COUNT (AUTO) 182 K/uL (130-400); RED BLOOD CELL COUNT(AUTO) 3.82 MIL/uL (4.50-6.20); RED CELL DISTRIBUTION WIDTH 20.6 % (11.0-15.5); WHITE BLOOD COUNT (AUTO) 15.5 K/uL (4.8-10.8)
--- NOTE | 2024-04-15 09:37 | PN ---
[facility] PROGRESS NOTE Date Patient Seen: Apr 15, 2024 Time of Visit: 09:15 Supervising Physician: Dr. Dove Primary Care Physician: Dr. Ian Carter Outpatient Specialists: Inpatient Consults: Dr. Jimenez, Dr. Zhao PROBLEM LIST: Sepsis with septic shock, in need of pressor - weaned off on 04/14/2024 Acute hypoxic respiratory failure, in need of BIPAP Recurrent right pleural effusion- pathology report on 03/22 right pleural fluid negative for malignancy Acute cystitis Metastatic right colon adenocarcinoma to the liver Ascites with peritoneal carcinomatosis S/P paracentesis on 04/14 with 5.5 L by IR Lactic acidosis Metastatic right colon cancer to the liver, new diagnosis -Status post colostomy bag in place. - Biopsy from the liver was positive for adenocarcinoma consistent with colon origin -Started on chemotherapy treatment with 5-FU irinotecan, received his first cycle. Patient on 5-FU pump Metabolic acidosis Acute renal failure Frail/ debility Diabetes mellitus Persistent nausea Anemia INTERVAL HISTORY: This is a 48-year-old male with past medical history of newly diagnosed colon cancer metastatic to liver on chemotherapy, status post colostomy diversion, diabetes mellitus, hypertension who came to the hospital with complaint of generalized body weakness found to be in shock state for which beyond inpatient Services is consulted . Patient is not able to give me good history and his mother is deaf, information is obtained from chart review. He is reported to have weakness along with shortness of breath, nausea, and vomiting. Patient noticed, he has been very edematous. Patient feels this is the chemotherapy symptoms. He started to have his 1st chemo two days ago after being diagnosed early this month. He received his first chemo yesterday. At this time of admission in the ED, patient is still connected to his chemotherapy infusion. Otherwise patient denies dysuria, fever, chills, diarrhea. 04/14 - Patient seen at bedside , patient is anxious , alert oriented to time place person. patient has been weaned off of levophed. Metastatic cancer to liver newly diagnosed. paracentesis done today,awaiting the fluid analysis. colostomy bag has 400 ml of bilious drainage . Patients abnormal labs WBC trended up to 18.3 from 12.4 and HgB - 9.3 , Na - 128, Lactic acid - 5.12, Ph - 7.34, Pco2 - 24, Hco3 - 12.5, Cr - 3.4. Case followed by Oncology and Infectious disease. Patient's vitals Temp - 98.4, MT - 96, RR - 21, BP - 115/67, Sat - 96% on RA. Patient refused hospice and is full code. Patient weaned off BIPAP . plan to downgrade if stable 04/15 - Patient seen at bedside ,sleeping with BIPAP on FiO2 of 30% , woke up on calling name ,alert oriented to time place person. Paracentesis yielded 6.5L fluid and analysis shows the fluid is due to portal hypertension. Patient is on terminal diagnosis but he is refusing hospice . Patients labs WBC's trended down to 15.5 from 18.3 ,Hgb 9.2 from 9.3 and Platelets 182 from 373 yesterday, Cr improved to 2.9 . Patient will be continued on heparin and will be monitored due to huge drop on the platelet count, patient is not bleeding . Plan to continue the patient on Heparin for DVT prophylaxis due to the risk factors. Patient is hemodynamically stable MT - 91, BP - 102/60, RR - 14, Sat - 96% , continued on meropenem and linezolid . Platelet count to be monitored closely. Bicarb has persistently over 20 for the past 3 checks. will dc bicarb drip. Start NS. Recommending hospice but patient has been refusing this. CXR in AM. Downgrade to floor. REVIEW OF SYSTEMS: 12 point ROS reviewed with patient. Pertinent positives mentioned above. Otherwise negative. PHYSICAL EXAM: GENERAL: alert, weak, awake oriented x 3 HEENT: EOMI, Sclera non icteric, moist mucosa NECK: Supple, no JVD, trachea midline LUNGS: Clear breath sounds bilaterally. No wheezes HEART: Regular rate and rhythm. Normal S1 and S2, without murmurs ABD: Abdomen soft, nontender. Bowel sounds present EXT: No clubbing cyanosis or edema NEURO: Alert and oriented to person, follows commands Vital Signs (last 8hr) Date Time Temp Pulse Resp B/P (MAP) Pulse Ox O2 Delivery O2 Flow Rate FiO2 04/15/24 08:00 97.9 92 18 104/55 96 BIPAP 04/15/24 07:59 96 Bi-PAP+ 30 04/15/24 04:00 98.2 92 14 99/53 99 BIPAP LABS: Hematology Labs: Test 04/15/24 04:15 Range/Units White Blood Count 14.5 H 4.8-10.8 K/uL Red Blood Count 3.41 L 4.50-6.20 MIL/uL Hemoglobin 8.4 L 14.0-18.0 g/dL Hematocrit 25.7 L 42-54 % Mean Corpuscular Volume 75.4 L 79-99 fL Mean Corpuscular Hemoglobin 24.6 L 27.0-33.0 pg Mean Corpuscular Hemoglobin Concent 32.7 32.0-36.0 g/dL Red Cell Distribution Width 20.8 H 11.0-15.5 % Platelet Count 175 # 130-400 K/uL Mean Platelet Volume 9.0 7.5-10.5 fL Immature Granulocyte % (Auto) 1.0 0-1 % Neutrophils (%) (Auto) 95.1 H 40.0-77.0 % Lymphocytes (%) (Auto) 2.6 L 21.0-51.0 % Monocytes (%) (Auto) 1.2 L 3.0-13.0 % Eosinophils (%) (Auto) 0.0 0.0-8.0 % Basophils (%) (Auto) 0.1 0.0-5.0 % Neutrophils # (Auto) 13.8 H 1.8-7.7 K/uL Lymphocytes # (Auto) 0.4 L 1.0-4.8 K/uL Monocytes # (Auto) 0.2 0.1-1.0 K/uL Eosinophils # (Auto) 0.00 0.00-0.70 K/uL Basophils # (Auto) 0.02 0.00-0.20 K/uL Absolute Immature Granulocyte (auto 0.15 0-1 K/uL Nucleated Red Blood Cells 0.0 0.0-0.19 % Chemistry Labs: Test 04/15/24 04:15 04/14/24 19:39 Range/Units Sodium Level 132 L 136-145 mmol/L Potassium Level 3.6 3.5-5.1 mmol/L Chloride Level 97 L 101-111 mmol/L Carbon Dioxide Level 24 21-32 mmol/L Blood Urea Nitrogen 64 H 7-18 mg/dL Creatinine 2.9 H 0.5-1.3 mg/dL Glomerular Filtration Rate Calc 26 >90 mL/min Random Glucose 162 H 70-105 mg/dL Total Calcium 7.3 L 8.5-10.1 mg/dL Total Bilirubin 0.6 0.2-1.0 mg/dL Aspartate Amino Transf (AST/SGOT) 37 10-37 U/L Alanine Aminotransferase (ALT/SGPT) 27 12-78 U/L Alkaline Phosphatase 337 H 50-136 U/L Total Protein 5.0 L 6.0-8.3 g/dL Albumin 2.5 L 3.5-5.0 g/dL Whole Blood Glucose 140 H 70-110 MG/DL DIAGNOSTICS / RADIOLOGY RESULTS: [ ] PLAN Continuous cardiac monitoring. Continue BIPAP, titrate to keep O2 above 92%. NEURO: Minimize central acting medications as possible. Fall Precautions. Well lighted room through the day and minimize interruptions through the night to prevent acute delirium. PULMONARY: Supplemental 02 as needed Titrate Fio2 to keep Spo2 > or = 90% DuoNebs and CPT as needed IS hourly while awake for pulmonary hygiene Out of bed to chair as tolerated VAP Bundle CARDIOVASCULAR: Follow hemodynamics. Titrate vasopressor to keep MAP >65 or systolic blood pressure >95mmHg GI & NUTRITION: Continue nutritional support Aspirations precautions Prokinetic agents and laxatives as needed GI prophylaxis with Protonix KIDNEYS & ELECTROLYTES: Strict monitoring of intake and output Daily weights Avoid nephrotoxic agents Monitor electrolytes and replace as needed Goal urine output of 30mL/hr or 0.5mL/kg/hr ENDOCRINE: Maintain blood glucose between 100-180 at all times. Insulin sliding scale for blood glucose management INFECTIOUS DISEASE: Trend temperature. Jackson-culture if febrile. On Meropenem and Linezolid HEMATOLOGY & COAGULATION: Monitor H&H. Keep Hgb > 7 Transfuse 1 unit of PRBC for Hgb < 7 Transfuse 1 pack of platelets of platelets < 20, 000 Watch for any signs and symptoms of bleeding Heparin will be continued for the DVT prophylaxis SKIN: Pressure ulcer prevention per facility protocol Rehab: PT/OT Code Status: Full Resuscitation Disposition: Downgrade if stable ROD ZULETA MD Apr 15, 2024 09:36 MAXWELL BEDOLLA CNP Apr 15, 2024 11:50
--- NOTE | 2024-04-15 11:18 | PN ---
DATE OF SERVICE: 04/15/2024. INFECTIOUS DISEASE CONSULTATION NOTE SUBJECTIVE: The patient is seen and examined at bedside today. The patient has no fever, no chills. No nausea, no vomiting, no abdominal pain. No bleeding tendency. No rashes or itchiness. No palpitation, no orthopnea. Remained in ICU. Renal function is improving slowly. The patient is tolerating antibiotic. No slurred speech or limb weakness. PHYSICAL EXAMINATION: VITAL SIGNS: Temperature 98.4. EYES: No icterus. Pupils equal and reactive. HENT: No oral thrush seen. Moist oral mucosa. NECK: Supple, no JVD or thyromegaly. LUNGS: Good air entry. No rales, no rhonchi. CARDIOVASCULAR: S1, S2 regular. No murmur heard. ABDOMEN: Full, soft, and nontender. Bowel sounds present. CENTRAL NERVOUS SYSTEM: Awake, alert and oriented x 3. No focal deficits. SKIN: No rashes, no itchiness. LYMPHATIC: No peripheral lymphadenopathy. BACK: No deformity, no pressure ulcer. HEMATOLOGIC: No bleeding or petechial lesion seen. ASSESSMENT: A 48-year-old male with multiple problems, which include: * Septic shock. * Metastatic colon cancer. * Malignant ascites, status post paracentesis. * Acute renal failure. * Nausea and vomiting. * Diabetes mellitus. * Obesity. PLAN: * Continue critical care support. * Continue linezolid. * Continue meropenem. * Continue antiemetic. * Continue colostomy care. * Continue pain management. * Monitor electrolytes. * Continue DVT prophylaxis. TID: [id number] RECEIPT: [id number]
--- NOTE | 2024-04-15 11:52 | PN ---
[facility] PROGRESS NOTE Date Patient Seen: Apr 15, 2024 Time of Visit: 11:51 Supervising Physician: Dr. Dove Primary Care Physician: Dr. Ian Carter Outpatient Specialists: Inpatient Consults: Dr. Jimenez, Dr. Zhao PROBLEM LIST: Sepsis with septic shock, in need of pressor - weaned off on 04/14/2024 Acute hypoxic respiratory failure, in need of BIPAP Recurrent right pleural effusion- pathology report on 03/22 right pleural fluid negative for malignancy Acute cystitis Metastatic right colon adenocarcinoma to the liver Ascites with peritoneal carcinomatosis S/P paracentesis on 04/14 with 5.5 L by IR Lactic acidosis Metastatic right colon cancer to the liver, new diagnosis -Status post colostomy bag in place. - Biopsy from the liver was positive for adenocarcinoma consistent with colon origin -Started on chemotherapy treatment with 5-FU irinotecan, received his first cycle. Patient on 5-FU pump Metabolic acidosis Acute renal failure Frail/ debility Diabetes mellitus Persistent nausea Anemia INTERVAL HISTORY: This is a 48-year-old male with past medical history of newly diagnosed colon cancer metastatic to liver on chemotherapy, status post colostomy diversion, diabetes mellitus, hypertension who came to the hospital with complaint of generalized body weakness found to be in shock state for which beyond inpatient Services is consulted . Patient is not able to give me good history and his mother is deaf, information is obtained from chart review. He is reported to have weakness along with shortness of breath, nausea, and vomiting. Patient noticed, he has been very edematous. Patient feels this is the chemotherapy symptoms. He started to have his 1st chemo two days ago after being diagnosed early this month. He received his first chemo yesterday. At this time of admission in the ED, patient is still connected to his chemotherapy infusion. Otherwise patient denies dysuria, fever, chills, diarrhea. 04/14 - Patient seen at bedside , patient is anxious , alert oriented to time place person. patient has been weaned off of levophed. Metastatic cancer to liver newly diagnosed. paracentesis done today,awaiting the fluid analysis. colostomy bag has 400 ml of bilious drainage . Patients abnormal labs WBC trended up to 18.3 from 12.4 and HgB - 9.3 , Na - 128, Lactic acid - 5.12, Ph - 7.34, Pco2 - 24, Hco3 - 12.5, Cr - 3.4. Case followed by Oncology and Infectious disease. Patient's vitals Temp - 98.4, ND - 96, RR - 21, BP - 115/67, Sat - 96% on RA. Patient refused hospice and is full code. Patient weaned off BIPAP . plan to downgrade if stable 04/15 - Patient seen at bedside ,sleeping with BIPAP on FiO2 of 30% , woke up on calling name ,alert oriented to time place person. Paracentesis yielded 6.5L fluid and analysis shows the fluid is due to portal hypertension. Patient is on terminal diagnosis but he is refusing hospice . Patients labs WBC's trended down to 15.5 from 18.3 ,Hgb 9.2 from 9.3 and Platelets 182 from 373 yesterday, Cr improved to 2.9 . Patient will be continued on heparin and will be monitored due to huge drop on the platelet count, patient is not bleeding . Plan to continue the patient on Heparin for DVT prophylaxis due to the risk factors. Patient is hemodynamically stable ND - 91, BP - 102/60, RR - 14, Sat - 96% , continued on meropenem and linezolid . Platelet count to be monitored closely. Bicarb has persistently over 20 for the past 3 checks. will dc bicarb drip. Start NS. Recommending hospice but patient has been refusing this. CXR in AM. Downgrade to floor. REVIEW OF SYSTEMS: 12 point ROS reviewed with patient. Pertinent positives mentioned above. Otherwise negative. PHYSICAL EXAM: GENERAL: alert, weak, awake oriented x 3 HEENT: EOMI, Sclera non icteric, moist mucosa NECK: Supple, no JVD, trachea midline LUNGS: Clear breath sounds bilaterally. No wheezes HEART: Regular rate and rhythm. Normal S1 and S2, without murmurs ABD: Abdomen soft, nontender. Bowel sounds present EXT: No clubbing cyanosis or edema NEURO: Alert and oriented to person, follows commands Vital Signs (last 8hr) Date Time Temp Pulse Resp B/P (MAP) Pulse Ox O2 Delivery O2 Flow Rate FiO2 04/15/24 11:13 91 18 30 04/15/24 10:30 89 18 93/61 97 Room Air 04/15/24 08:00 97.9 92 18 104/55 96 BIPAP 04/15/24 07:59 96 Bi-PAP+ 30 04/15/24 07:52 100 21 30 112/24 04:00 98.2 92 14 99/53 99 BIPAP LABS: Hematology Labs: Test 04/15/24 09:10 Range/Units White Blood Count 15.5 H 4.8-10.8 K/uL Red Blood Count 3.82 L 4.50-6.20 MIL/uL Hemoglobin 9.2 L 14.0-18.0 g/dL Hematocrit 29.1 L 42-54 % Mean Corpuscular Volume 76.2 L 79-99 fL Mean Corpuscular Hemoglobin 24.1 L 27.0-33.0 pg Mean Corpuscular Hemoglobin Concent 31.6 L 32.0-36.0 g/dL Red Cell Distribution Width 20.6 H 11.0-15.5 % Platelet Count 182 130-400 K/uL Mean Platelet Volume 9.4 7.5-10.5 fL Immature Granulocyte % (Auto) 1.2 H 0-1 % Neutrophils (%) (Auto) 93.4 H 40.0-77.0 % Lymphocytes (%) (Auto) 3.8 L 21.0-51.0 % Monocytes (%) (Auto) 1.5 L 3.0-13.0 % Eosinophils (%) (Auto) 0.0 0.0-8.0 % Basophils (%) (Auto) 0.1 0.0-5.0 % Neutrophils # (Auto) 14.5 H 1.8-7.7 K/uL Lymphocytes # (Auto) 0.6 L 1.0-4.8 K/uL Monocytes # (Auto) 0.2 0.1-1.0 K/uL Eosinophils # (Auto) 0.00 0.00-0.70 K/uL Basophils # (Auto) 0.01 0.00-0.20 K/uL Absolute Immature Granulocyte (auto 0.18 0-1 K/uL Nucleated Red Blood Cells 0.0 0.0-0.19 % Chemistry Labs: Test 04/15/24 11:14 04/15/24 04:15 Range/Units Whole Blood Glucose 176 H 70-110 MG/DL Sodium Level 132 L 136-145 mmol/L Potassium Level 3.6 3.5-5.1 mmol/L Chloride Level 97 L 101-111 mmol/L Carbon Dioxide Level 24 21-32 mmol/L Blood Urea Nitrogen 64 H 7-18 mg/dL Creatinine 2.9 H 0.5-1.3 mg/dL Glomerular Filtration Rate Calc 26 >90 mL/min Random Glucose 162 H 70-105 mg/dL Total Calcium 7.3 L 8.5-10.1 mg/dL Total Bilirubin 0.6 0.2-1.0 mg/dL Aspartate Amino Transf (AST/SGOT) 37 10-37 U/L Alanine Aminotransferase (ALT/SGPT) 27 12-78 U/L Alkaline Phosphatase 337 H 50-136 U/L Total Protein 5.0 L 6.0-8.3 g/dL Albumin 2.5 L 3.5-5.0 g/dL DIAGNOSTICS / RADIOLOGY RESULTS: [ ] PLAN Continuous cardiac monitoring. Continue BIPAP, titrate to keep O2 above 92% as needed NEURO: Minimize central acting medications as possible. Fall Precautions. Well lighted room through the day and minimize interruptions through the night to prevent acute delirium. PULMONARY: Supplemental 02 as needed Titrate Fio2 to keep Spo2 > or = 90% DuoNebs and CPT as needed IS hourly while awake for pulmonary hygiene Out of bed to chair as tolerated VAP Bundle CARDIOVASCULAR: Follow hemodynamics. Titrate vasopressor to keep MAP >65 or systolic blood pressure >95mmHg GI & NUTRITION: Continue nutritional support Aspirations precautions Prokinetic agents and laxatives as needed GI prophylaxis with Protonix KIDNEYS & ELECTROLYTES: Strict monitoring of intake and output Daily weights Avoid nephrotoxic agents Monitor electrolytes and replace as needed Goal urine output of 30mL/hr or 0.5mL/kg/hr ENDOCRINE: Maintain blood glucose between 100-180 at all times. Insulin sliding scale for blood glucose management INFECTIOUS DISEASE: Trend temperature. Jackson-culture if febrile. On Meropenem and Linezolid HEMATOLOGY & COAGULATION: Monitor H&H. Keep Hgb > 7 Transfuse 1 unit of PRBC for Hgb < 7 Transfuse 1 pack of platelets of platelets < 20, 000 Watch for any signs and symptoms of bleeding Heparin will be continued for the DVT prophylaxis SKIN: Pressure ulcer prevention per facility protocol Rehab: PT/OT Code Status: Full Resuscitation Disposition: Downgrade if stable MAXWELL BEDOLLA RESPIRATORY THERAPY ASSISTANT Apr 15, 2024 11:52
[2024-04-15] MEDS: 0.9%NACL 1000ML 1,000 ML IV SCH (12:03)
[2024-04-15] MEDS: HEParin 5,000 UNIT VIAL SQ SCH (12:04)
--- NOTE | 2024-04-15 13:13 | PN ---
PROGRESS NOTE Date of Service: Apr 15, 2024 Time of Service: 13:09 SUBJECTIVE: No new concerns. No acute events reported in the last 24hours. Examiend at bedside. Denies fever chills and pain. REVIEW OF SYSTEMS CONSTITUTIONAL: Denies fever, chills, or fatigue. HEAD/FACE: No signs of trauma. EENT: Denies eye pain, blurred vision, double vision, or light sensitivity. RESPIRATORY: Denies shortness of breath, cough, wheezing CARDIOVASCULAR: Denies chest pain, palpitation, syncope GASTROINTESTINAL/ABDOMINAL: Denies abdominal pain, constipation, diarrhea, nausea or vomiting GENITOURINARY: Denies dysuria or hematuria. MUSCULOSKELETAL: Denies joint pain, tenderness, or trauma. INTEGUMENTARY: Denies rash or itchiness NEUROLOGICAL/PSYCH: Denies anxiety, depression, heat or cold intolerance. PHYSICAL EXAM EYES: Anicteric. Pupils equal and reactive. HENT: No oral thrush seen, moist Oral mucosa NECK: Supple, no JVD or thyromegaly. LUNGS: Good air entry. No rales, no rhonchi. CARDIOVASCULAR: S1, S2 regular. No murmur heard. ABDOMEN: Soft, non tender, bowel sounds present, no organomegaly CENTRAL NERVOUS SYSTEM: Awake, alert, oriented x 3. No focal deficits. SKIN: No rashes, no swelling. LYMPHATICS: No peripheral lymphadenopathy MUSCULOSKELETAL: No joint swelling, erythema or tenderness. EXTREMITIES: No cyanosis or clubbing BACK: No deformity, no pressure ulcer. GENITOURINARY: No dysuria or hematuria Vital Signs (last 8hr) Date Time Temp Pulse Resp B/P (MAP) Pulse Ox O2 Delivery O2 Flow Rate FiO2 04/15/24 11:13 91 18 30 04/15/24 11:00 98.1 95 20 95/52 95 BIPAP 04/15/24 10:30 89 18 93/61 97 Room Air 04/15/24 08:00 97.9 92 18 104/55 96 BIPAP 04/15/24 07:59 96 Bi-PAP+ 30 04/15/24 07:52 100 21 30 LABS: Laboratory: Test 04/15/24 11:14 04/15/24 09:10 04/15/24 04:15 04/14/24 13:00 Range/Units Whole Blood Glucose 176 H 70-110 MG/DL White Blood Count 15.5 H 4.8-10.8 K/uL Red Blood Count 3.82 L 4.50-6.20 MIL/uL Hemoglobin 9.2 L 14.0-18.0 g/dL Hematocrit 29.1 L 42-54 % Mean Corpuscular Volume 76.2 L 79-99 fL Mean Corpuscular Hemoglobin 24.1 L 27.0-33.0 pg Mean Corpuscular Hemoglobin Concent 31.6 L 32.0-36.0 g/dL Red Cell Distribution Width 20.6 H 11.0-15.5 % Platelet Count 182 130-400 K/uL Mean Platelet Volume 9.4 7.5-10.5 fL Immature Granulocyte % (Auto) 1.2 H 0-1 % Neutrophils (%) (Auto) 93.4 H 40.0-77.0 % Lymphocytes (%) (Auto) 3.8 L 21.0-51.0 % Monocytes (%) (Auto) 1.5 L 3.0-13.0 % Eosinophils (%) (Auto) 0.0 0.0-8.0 % Basophils (%) (Auto) 0.1 0.0-5.0 % Neutrophils # (Auto) 14.5 H 1.8-7.7 K/uL Lymphocytes # (Auto) 0.6 L 1.0-4.8 K/uL Monocytes # (Auto) 0.2 0.1-1.0 K/uL Eosinophils # (Auto) 0.00 0.00-0.70 K/uL Basophils # (Auto) 0.01 0.00-0.20 K/uL Absolute Immature Granulocyte (auto 0.18 0-1 K/uL Nucleated Red Blood Cells 0.0 0.0-0.19 % Sodium Level 132 L 136-145 mmol/L Potassium Level 3.6 3.5-5.1 mmol/L Chloride Level 97 L 101-111 mmol/L Carbon Dioxide Level 24 21-32 mmol/L Blood Urea Nitrogen 64 H 7-18 mg/dL Creatinine 2.9 H 0.5-1.3 mg/dL Glomerular Filtration Rate Calc 26 >90 mL/min Random Glucose 162 H 70-105 mg/dL Total Calcium 7.3 L 8.5-10.1 mg/dL Total Bilirubin 0.6 0.2-1.0 mg/dL Aspartate Amino Transf (AST/SGOT) 37 10-37 U/L Alanine Aminotransferase (ALT/SGPT) 27 12-78 U/L Alkaline Phosphatase 337 H 50-136 U/L Total Protein 5.0 L 6.0-8.3 g/dL Albumin 2.5 L 3.5-5.0 g/dL Body Fluid Source ASCITES Body Fluid Volume 6500 mL Body Fluid Color LT YELLOW LT YELLOW Body Fluid Supernatant Appearance SLIGHTLY CLOUDY CLEAR Body Fluid WBC 268 /cu. mm. Body Fluid RBC 480 /cu. mm. Body Fluid Neutrophils 1.0 % Body Fluid Lymphocytes 70 % Body Fluid Eosinophils % 3 % Body Fluid Macrophages (%) 26 Body Fluid Total Protein < 2.0 g/dL Body Fluid Albumin < 0.6 g/dL DIAGNOSTICS / RADIOLOGY: CT ABDOMEN/PELVIS W/O CONTRAST HISTORY: Abdominal distention COMPARISON: CT from 03/18/2024 TECHNIQUE: Multiple sequential axial images of the abdomen and pelvis were obtained from the dome of the diaphragm through symphysis pubis. Patient was not given contrast through intravenous route. Oral contrast was not given. FINDINGS: There are bilateral pleural effusions with compressive atelectasis . There is left lingular pulmonary nodule measuring 18 mm. Degenerative changes of the thoracolumbar spine are present. The heart is not enlarged. Extensive hepatic nodules are seen throughout the liver appears cirrhotic changes of the liver are noted. Liver measures 16.4 cm. Spleen measures 12 cm. Spleen, adrenal glands and pancreas are unremarkable. There is no evidence of hydronephrosis bilaterally. No evidence of renal stone is seen. Fecal material is seen in the colon. There are borderline retroperitoneal and mesenteric lymph nodes. There is ascites. Anasarca. Atherosclerotic changes are present. There appears be soft tissue mass in the region of the ascending colon measuring 8.3 x 7.7 cm with neoplastic process not excluded. There are bilateral inguinal/scrotal hernias with fluid content with right worse than left. Pelvic sidewalls are symmetric bilaterally. Bladder is well distended without wall thickening. IMPRESSION: 1. Extensive hepatic nodules. Hepatosplenomegaly. Bilateral pleural effusions with compressive atelectasis. Left lingular pulmonary nodule. Ascites. Anasarca. Soft tissue mass in the region of the ascending colon measuring 8.3 x 7.7 cm may be related to colon cancer. Clinical correlation is recommended. Borderline retroperitoneal mesenteric adenopathy is seen. Bilateral scrotal hernias with fluid content. CT was performed with one or more following dose reduction techniques: automated exposure control, adjustment of the mA and kv according to patient's size, or use of a iterative reconstruction technique.+ ASSESSMENT: NATALY mandozuhair JUSTYNA likely etiology is acute tubular necrosis in a patient who is admitted septic shock., patient did have some history of CKD 2 Last known renal function earlier this month 22 MAR 2024 GFR 68 and Cr 1.3. Diabetes HTN Hyponatremia Anemia Metabolic acidosis Metastatic colon carcinoma. Obesity. PLAN: Monitor Renal function: reassess after fluids FLuid intake 1.2 L Free water QD Monitor I's and O's, daily weights No need for APPLICATION SECURITY ENGINEER Renal diet Dose to renal clearance ALMAZ LEVY AGMAYRA Apr 15, 2024 13:12
[2024-04-15] MEDS ORDERED: metoCLOPRAmide 10 MG/2 ML VIAL IVP PRN (17:00)
[2024-04-15] MEDS: metoCLOPRAmide 10 MG/2 ML VIAL IVP SCH (17:56)
[2024-04-16] VITALS (10 sets, daily range): BP systolic 90–108; BP diastolic 51–68; PULSE 90–98; RESP 16–20; TEMP 97.4–98.8; O2SAT 93–97
[2024-04-16 06:11] LABS: BASOPHILS # (AUTO) 0.01 K/uL (0.00-0.20); BASOPHILS % (AUTO) 0.1 % (0.0-5.0); EOSINOPHILS # (AUTO) 0.01 K/uL (0.00-0.70); EOSINOPHILS % (AUTO) 0.1 % (0.0-8.0); HEMATOCRIT 27.8 % (42-54); IMMATURE GRANULOCYTE ABSOLUTE 0.08 K/uL (0-1); LYMPHOCYTES # (AUTO) 0.8 K/uL (1.0-4.8); LYMPHOCYTES % (AUTO) 6.6 % (21.0-51.0); MEAN CORPUSCULAR HEMOGLOBIN 24.7 pg (27.0-33.0); MEAN CORPUSCULAR HGB CONC 32.4 g/dL (32.0-36.0); MEAN CORPUSCULAR VOLUME 76.4 fL (79-99); MONOCYTES # (AUTO) 0.1 K/uL (0.1-1.0); MONOCYTES % (AUTO) 0.9 % (3.0-13.0); NEUTROPHILS # (AUTO) 10.8 K/uL (1.8-7.7); NEUTROPHILS % (AUTO) 91.6 % (40.0-77.0); PLATELET COUNT (AUTO) 166 K/uL (130-400); RED BLOOD CELL COUNT(AUTO) 3.64 MIL/uL (4.50-6.20); RED CELL DISTRIBUTION WIDTH 20.4 % (11.0-15.5); WHITE BLOOD COUNT (AUTO) 11.8 K/uL (4.8-10.8)
[2024-04-16 06:26] LABS: ALBUMIN 2.2 g/dL (3.5-5.0); CREATININE 2.7 mg/dL (0.5-1.3); POTASSIUM 3.7 mmol/L (3.5-5.1); TOTAL PROTEIN, SERUM 4.7 g/dL (6.0-8.3)
--- NOTE | 2024-04-16 08:05 | HMCIMG ---
PORTABLE CHEST RADIOGRAPH INDICATION: pleural effusion COMPARISON: 04/12/2024 FINDINGS/IMPRESSION: Stable left-sided Port-A-Cath. Stable heart size without pulmonary vascular congestion. Small to medium-sized right and small left layering pleural effusions, without pneumothorax..
--- NOTE | 2024-04-16 13:33 | PN ---
PROGRESS NOTE Date of Service: Apr 16, 2024 Time of Service: 13:30 SUBJECTIVE: Examined at bedside. No new concerns. No acute events reported in the last 24hours. Denies fever chills and pain. REVIEW OF SYSTEMS CONSTITUTIONAL: Denies fever, chills, or fatigue. HEAD/FACE: No signs of trauma. EENT: Denies eye pain, blurred vision, double vision, or light sensitivity. RESPIRATORY: Denies shortness of breath, cough, wheezing CARDIOVASCULAR: Denies chest pain, palpitation, syncope GASTROINTESTINAL/ABDOMINAL: Denies abdominal pain, constipation, diarrhea, nausea or vomiting GENITOURINARY: Denies dysuria or hematuria. MUSCULOSKELETAL: Denies joint pain, tenderness, or trauma. INTEGUMENTARY: Denies rash or itchiness NEUROLOGICAL/PSYCH: Denies anxiety, depression, heat or cold intolerance. PHYSICAL EXAM EYES: Anicteric. Pupils equal and reactive. HENT: No oral thrush seen, moist Oral mucosa NECK: Supple, no JVD or thyromegaly. LUNGS: Good air entry. No rales, no rhonchi. CARDIOVASCULAR: S1, S2 regular. No murmur heard. ABDOMEN: Soft, non tender, bowel sounds present, no organomegaly CENTRAL NERVOUS SYSTEM: Awake, alert, oriented x 3. No focal deficits. SKIN: No rashes, no swelling. LYMPHATICS: No peripheral lymphadenopathy MUSCULOSKELETAL: No joint swelling, erythema or tenderness. EXTREMITIES: No cyanosis or clubbing BACK: No deformity, no pressure ulcer. GENITOURINARY: No dysuria or hematuria Vital Signs (last 8hr) Date Time Temp Pulse Resp B/P (MAP) Pulse Ox O2 Delivery O2 Flow Rate FiO2 04/16/24 11:58 98.6 91 16 101/63 93 Room Air 21 04/16/24 08:00 97.3 94 20 96/56 98 BIPAP LABS: Laboratory: Test 04/16/24 11:27 04/16/24 05:46 Range/Units Whole Blood Glucose 167 H 70-110 MG/DL White Blood Count 11.8 H 4.8-10.8 K/uL Red Blood Count 3.64 L 4.50-6.20 MIL/uL Hemoglobin 9.0 L 14.0-18.0 g/dL Hematocrit 27.8 L 42-54 % Mean Corpuscular Volume 76.4 L 79-99 fL Mean Corpuscular Hemoglobin 24.7 L 27.0-33.0 pg Mean Corpuscular Hemoglobin Concent 32.4 32.0-36.0 g/dL Red Cell Distribution Width 20.4 H 11.0-15.5 % Platelet Count 166 130-400 K/uL Mean Platelet Volume 9.3 7.5-10.5 fL Immature Granulocyte % (Auto) 0.7 0-1 % Neutrophils (%) (Auto) 91.6 H 40.0-77.0 % Lymphocytes (%) (Auto) 6.6 L 21.0-51.0 % Monocytes (%) (Auto) 0.9 L 3.0-13.0 % Eosinophils (%) (Auto) 0.1 0.0-8.0 % Basophils (%) (Auto) 0.1 0.0-5.0 % Neutrophils # (Auto) 10.8 H 1.8-7.7 K/uL Lymphocytes # (Auto) 0.8 L 1.0-4.8 K/uL Monocytes # (Auto) 0.1 0.1-1.0 K/uL Eosinophils # (Auto) 0.01 0.00-0.70 K/uL Basophils # (Auto) 0.01 0.00-0.20 K/uL Absolute Immature Granulocyte (auto 0.08 0-1 K/uL Nucleated Red Blood Cells 0.0 0.0-0.19 % Sodium Level 135 L 136-145 mmol/L Potassium Level 3.7 3.5-5.1 mmol/L Chloride Level 101 101-111 mmol/L Carbon Dioxide Level 24 21-32 mmol/L Blood Urea Nitrogen 59 H 7-18 mg/dL Creatinine 2.7 H 0.5-1.3 mg/dL Glomerular Filtration Rate Calc 28 >90 mL/min Random Glucose 131 H 70-105 mg/dL Total Calcium 7.4 L 8.5-10.1 mg/dL Total Bilirubin 1.0 0.2-1.0 mg/dL Aspartate Amino Transf (AST/SGOT) 47 H 10-37 U/L Alanine Aminotransferase (ALT/SGPT) 27 12-78 U/L Alkaline Phosphatase 380 H 50-136 U/L Total Protein 4.7 L 6.0-8.3 g/dL Albumin 2.2 L 3.5-5.0 g/dL DIAGNOSTICS / RADIOLOGY: CT ABDOMEN/PELVIS W/O CONTRAST HISTORY: Abdominal distention COMPARISON: CT from 03/18/2024 TECHNIQUE: Multiple sequential axial images of the abdomen and pelvis were obtained from the dome of the diaphragm through symphysis pubis. Patient was not given contrast through intravenous route. Oral contrast was not given. FINDINGS: There are bilateral pleural effusions with compressive atelectasis . There is left lingular pulmonary nodule measuring 18 mm. Degenerative changes of the thoracolumbar spine are present. The heart is not enlarged. Extensive hepatic nodules are seen throughout the liver appears cirrhotic changes of the liver are noted. Liver measures 16.4 cm. Spleen measures 12 cm. Spleen, adrenal glands and pancreas are unremarkable. There is no evidence of hydronephrosis bilaterally. No evidence of renal stone is seen. Fecal material is seen in the colon. There are borderline retroperitoneal and mesenteric lymph nodes. There is ascites. Anasarca. Atherosclerotic changes are present. There appears be soft tissue mass in the region of the ascending colon measuring 8.3 x 7.7 cm with neoplastic process not excluded. There are bilateral inguinal/scrotal hernias with fluid content with right worse than left. Pelvic sidewalls are symmetric bilaterally. Bladder is well distended without wall thickening. IMPRESSION: 1. Extensive hepatic nodules. Hepatosplenomegaly. Bilateral pleural effusions with compressive atelectasis. Left lingular pulmonary nodule. Ascites. Anasarca. Soft tissue mass in the region of the ascending colon measuring 8.3 x 7.7 cm may be related to colon cancer. Clinical correlation is recommended. Borderline retroperitoneal mesenteric adenopathy is seen. Bilateral scrotal hernias with fluid content. CT was performed with one or more following dose reduction techniques: automated exposure control, adjustment of the mA and kv according to patient's size, or use of a iterative reconstruction technique.+ ASSESSMENT: NATALY kiara ATN likely etiology is acute tubular necrosis in a patient who is admitted septic shock., patient did have some history of CKD 2 Last known renal function earlier this month 22 MAR 2024 GFR 68 and Cr 1.3. Diabetes HTN Hyponatremia Anemia Metabolic acidosis Metastatic colon carcinoma. Obesity. PLAN: Monitor Renal function: improvement in the last 24hours FLuid intake 1.2 L Free water QD Monitor Electrolytes Na 135 Monitor I's and O's, daily weights No need for ELECTRIC NEEDLE SPECIALIST Renal diet Dose to renal clearance ALMAZ LEVY Apr 16, 2024 13:33
--- NOTE | 2024-04-16 14:53 | PN ---
INFECTIOUS DISEASE PROGRESS NOTE Date of Service: Apr 16, 2024 SUBJECTIVE: Patient was seen and examined at bedside in room 323. Patient is awake, alert and oriented x3. patient is able to communicate needs well. No reports of fever throughout the night, temperature 97.3. The WBC con tinues trending down and is 11.8 today. Patient continues on linezolid and meropenem. Patient is post paracentesis day #2 with 5.5 L removed. Abdomen is large but soft. Renal function continues to slowly improve. Patient's mother visiting at bedside. We will continue to observe patient's care. PHYSICAL EXAM EYES: Anicteric. Pupils equal and reactive. HENT: No oral thrush seen, moist Oral mucosa. NECK: Supple, no JVD or thyromegaly. LUNGS: Good air entry. No rales, no rhonchi. CARDIOVASCULAR: S1, S2 regular. No murmur heard. ABDOMEN: Soft, non tender, bowel sounds present, no organomegaly. Colostomy. CENTRAL NERVOUS SYSTEM: Awake, alert, oriented x 3. SKIN: No rashes, no swelling. LYMPHATICS: No peripheral lymphadenopathy. MUSCULOSKELETAL: No joint swelling, erythema or tenderness. EXTREMITIES: No cyanosis or clubbing. BACK: No deformity, no pressure ulcer. GENITOURINARY: No dysuria or hematuria. Vital Sign (Last 12 Hours) 04/16/24 04/16/24 04/16/24 04/16/24 03:08 04:34 08:00 08:00 Temp 98.2 97.3 Pulse 97 91 94 Resp 20 18 20 B/P (MAP) 90/51 96/56 Pulse Ox 97 93 98 O2 Delivery Room Air Room Air* BIPAP O2 Flow Rate 0 FiO2 30 21 04/16/24 11:58 Temp 98.6 Pulse 91 Resp 16 B/P (MAP) 101/63 Pulse Ox 93 O2 Delivery Room Air FiO2 21 Intake & Output (last 24hrs) 04/15/24 04/15/24 04/16/24 15:00 23:00 07:00 Intake Total 225.0 ml 600.0 ml 1099.9 ml Output Total 400 ml 500 ml 1000 ml Balance -175.0 ml 100.0 ml 99.9 ml LABS: Laboratory: Test 04/16/24 11:27 04/16/24 05:46 Range/Units Whole Blood Glucose 167 H 70-110 MG/DL White Blood Count 11.8 H 4.8-10.8 K/uL Red Blood Count 3.64 L 4.50-6.20 MIL/uL Hemoglobin 9.0 L 14.0-18.0 g/dL Hematocrit 27.8 L 42-54 % Mean Corpuscular Volume 76.4 L 79-99 fL Mean Corpuscular Hemoglobin 24.7 L 27.0-33.0 pg Mean Corpuscular Hemoglobin Concent 32.4 32.0-36.0 g/dL Red Cell Distribution Width 20.4 H 11.0-15.5 % Platelet Count 166 130-400 K/uL Mean Platelet Volume 9.3 7.5-10.5 fL Immature Granulocyte % (Auto) 0.7 0-1 % Neutrophils (%) (Auto) 91.6 H 40.0-77.0 % Lymphocytes (%) (Auto) 6.6 L 21.0-51.0 % Monocytes (%) (Auto) 0.9 L 3.0-13.0 % Eosinophils (%) (Auto) 0.1 0.0-8.0 % Basophils (%) (Auto) 0.1 0.0-5.0 % Neutrophils # (Auto) 10.8 H 1.8-7.7 K/uL Lymphocytes # (Auto) 0.8 L 1.0-4.8 K/uL Monocytes # (Auto) 0.1 0.1-1.0 K/uL Eosinophils # (Auto) 0.01 0.00-0.70 K/uL Basophils # (Auto) 0.01 0.00-0.20 K/uL Absolute Immature Granulocyte (auto 0.08 0-1 K/uL Nucleated Red Blood Cells 0.0 0.0-0.19 % Sodium Level 135 L 136-145 mmol/L Potassium Level 3.7 3.5-5.1 mmol/L Chloride Level 101 101-111 mmol/L Carbon Dioxide Level 24 21-32 mmol/L Blood Urea Nitrogen 59 H 7-18 mg/dL Creatinine 2.7 H 0.5-1.3 mg/dL Glomerular Filtration Rate Calc 28 >90 mL/min Random Glucose 131 H 70-105 mg/dL Total Calcium 7.4 L 8.5-10.1 mg/dL Total Bilirubin 1.0 0.2-1.0 mg/dL Aspartate Amino Transf (AST/SGOT) 47 H 10-37 U/L Alanine Aminotransferase (ALT/SGPT) 27 12-78 U/L Alkaline Phosphatase 380 H 50-136 U/L Total Protein 4.7 L 6.0-8.3 g/dL Albumin 2.2 L 3.5-5.0 g/dL ASSESSMENT: Septic shock. Malignant ascites, status post paracentesis with 5.5 L removed. Metastatic colon cancer. Nausea or vomiting. Leukocytosis. Acute renal failure. Diabetes mellitus. PLAN: Continue meropenem. Continue linezolid. Continue GI prophylaxis. Continue antiemetics. Continue IV fluids. Continue pain management. Continue colostomy care. We will follow up on the cultures. We will monitor electrolytes. This case was reviewed and discussed with my supervising physician and the above assessment and plan was formulated and agreed upon. ATTESTATION BY PHYSICIAN I have seen and examined the patient. I reviewed the documentation, medical decision making, and treatment plan as noted by the mid-level provider above. I agree with the findings and plan of care. CORI SHAW MD, MIRTA L [facility] Apr 16, 2024 14:53
[2024-04-16] MEDS: tamSULOsin HCL 0.4 MG CAP.ER.24H PO SCH (19:33)
[2024-04-16] MEDS: atorVAStatin 40 MG TABLET PO SCH (19:33)
[2024-04-17] VITALS (19 sets, daily range): BP systolic 92–123; BP diastolic 52–78; PULSE 72–95; RESP 16–20; TEMP 97.9–99.5; O2SAT 93–99
[2024-04-17 05:19] LABS: MEAN CORPUSCULAR HEMOGLOBIN 24.2 pg (27.0-33.0); MEAN CORPUSCULAR HGB CONC 31.7 g/dL (32.0-36.0); MEAN CORPUSCULAR VOLUME 76.3 fL (79-99); RED BLOOD CELL COUNT(AUTO) 3.8 MIL/uL (4.50-6.20); RED CELL DISTRIBUTION WIDTH 20.1 % (11.0-15.5); WHITE BLOOD COUNT (AUTO) 6.9 K/uL (4.8-10.8)
[2024-04-17 05:41] LABS: ALBUMIN 2.2 g/dL (3.5-5.0); BILIRUBIN,TOTAL 1.2 mg/dL (0.2-1.0); CREATININE 2.3 mg/dL (0.5-1.3); MAGNESIUM 1.9 mg/dL (1.80-2.40); POTASSIUM 3.7 mmol/L (3.5-5.1); TOTAL PROTEIN, SERUM 4.8 g/dL (6.0-8.3)
[2024-04-17] MEDS: FERROUS SULFATE 325 MG TABLET.DR PO SCH (09:05)
--- NOTE | 2024-04-17 12:14 | HMCIMG ---
US ABDOMINAL COMPLETE HISTORY: Ascites COMPARISON: None TECHNIQUE: Limited abdominal ultrasound study was performed for evaluation of ascites.. FINDINGS: Ascites is seen. IMPRESSION: 1. Ascites.
[2024-04-17] MEDS ORDERED: ALBUMIN (HUMAN) 25% 200 ML IV ONE (13:25)
--- NOTE | 2024-04-17 13:40 | PN ---
INFECTIOUS DISEASE PROGRESS NOTE Date of Service: Apr 17, 2024 SUBJECTIVE: Patient was seen and examined at bedside in room 323. Patient is awake, alert and oriented x3. During rounding today observe patient having some difficulty breathing. O2 sat earlier today was 92% on room air. Patient's abdomen is large and firm. An abdominal ultrasound was obtained which showed ascites and patient will be undergoing an abdominal ultrasound guided paracentesis. No reports of fever, temperature 97.9 and a WBC of 6.9. Patient continues on linezolid and meropenem. Patient's mother visiting at bedside. We will continue to monitor patient's care. PHYSICAL EXAM EYES: Anicteric. Pupils equal and reactive. HENT: No oral thrush seen, moist Oral mucosa. NECK: Supple, no JVD or thyromegaly. LUNGS: Good air entry. No rales, no rhonchi. CARDIOVASCULAR: S1, S2 regular. No murmur heard. ABDOMEN: Soft, non tender, bowel sounds present, no organomegaly. Colostomy. CENTRAL NERVOUS SYSTEM: Awake, alert, oriented x 3. SKIN: No rashes, no swelling. LYMPHATICS: No peripheral lymphadenopathy. MUSCULOSKELETAL: No joint swelling, erythema or tenderness. EXTREMITIES: No cyanosis or clubbing. BACK: No deformity, no pressure ulcer. GENITOURINARY: No dysuria or hematuria. Vital Sign (Last 12 Hours) 04/17/24 04/17/24 04/17/24 04/17/24 04:52 07:15 08:00 08:17 Temp 98.8 97.9 Pulse 88 91 91 Resp 18 20 18 B/P (MAP) 100/60 109/63 Pulse Ox 95 93 92 O2 Delivery Room Air N/A Room Air Room Air* O2 Flow Rate 0 FiO2 21 21 04/17/24 12:45 Temp 97.9 Pulse 89 Resp 18 B/P (MAP) 123/78 Pulse Ox 99 Intake & Output (last 24hrs) 04/16/24 04/16/24 04/17/24 15:00 23:00 07:00 Intake Total 500 ml Output Total 800 ml 1100 ml 800 ml Balance -800 ml -600 ml -800 ml LABS: Laboratory: Test 04/17/24 11:27 04/17/24 04:55 04/16/24 05:46 Range/Units Whole Blood Glucose 199 H 70-110 MG/DL White Blood Count 6.9 # 4.8-10.8 K/uL Red Blood Count 3.80 L 4.50-6.20 MIL/uL Hemoglobin 9.2 L 14.0-18.0 g/dL Hematocrit 29.0 L 42-54 % Mean Corpuscular Volume 76.3 L 79-99 fL Mean Corpuscular Hemoglobin 24.2 L 27.0-33.0 pg Mean Corpuscular Hemoglobin Concent 31.7 L 32.0-36.0 g/dL Red Cell Distribution Width 20.1 H 11.0-15.5 % Platelet Count 130 130-400 K/uL Mean Platelet Volume 9.0 7.5-10.5 fL Nucleated Red Blood Cells 0.0 0.0-0.19 % Sodium Level 133 L 136-145 mmol/L Potassium Level 3.7 3.5-5.1 mmol/L Chloride Level 99 L 101-111 mmol/L Carbon Dioxide Level 23 21-32 mmol/L Blood Urea Nitrogen 58 H 7-18 mg/dL Creatinine 2.3 H 0.5-1.3 mg/dL Glomerular Filtration Rate Calc 34 >90 mL/min Random Glucose 147 H 70-105 mg/dL Total Calcium 7.6 L 8.5-10.1 mg/dL Magnesium Level 1.90 1.80-2.40 mg/dL Total Bilirubin 1.2 H 0.2-1.0 mg/dL Aspartate Amino Transf (AST/SGOT) 48 H 10-37 U/L Alanine Aminotransferase (ALT/SGPT) 33 # 12-78 U/L Alkaline Phosphatase 415 H 50-136 U/L Total Protein 4.8 L 6.0-8.3 g/dL Albumin 2.2 L 3.5-5.0 g/dL Immature Granulocyte % (Auto) 0.7 0-1 % Neutrophils (%) (Auto) 91.6 H 40.0-77.0 % Lymphocytes (%) (Auto) 6.6 L 21.0-51.0 % Monocytes (%) (Auto) 0.9 L 3.0-13.0 % Eosinophils (%) (Auto) 0.1 0.0-8.0 % Basophils (%) (Auto) 0.1 0.0-5.0 % Neutrophils # (Auto) 10.8 H 1.8-7.7 K/uL Lymphocytes # (Auto) 0.8 L 1.0-4.8 K/uL Monocytes # (Auto) 0.1 0.1-1.0 K/uL Eosinophils # (Auto) 0.01 0.00-0.70 K/uL Basophils # (Auto) 0.01 0.00-0.20 K/uL Absolute Immature Granulocyte (auto 0.08 0-1 K/uL ASSESSMENT: Septic shock. Malignant ascites, status post paracentesis with 5.5 L removed on 04/14/2024. Metastatic colon cancer. Nausea or vomiting. Leukocytosis. Acute renal failure. Diabetes mellitus. PLAN: Abdominal ultrasound was obtained and showed ascites. Will scheduled patient for an ultrasound-guided paracentesis to be done today. Continue meropenem. Continue linezolid. Continue GI prophylaxis. Continue antiemetics. Continue IV fluids. Continue pain management. Continue colostomy care. We will follow up on the cultures. We will monitor electrolytes. This case was reviewed and discussed with my supervising physician and the above assessment and plan was formulated and agreed upon. ATTESTATION BY PHYSICIAN I have seen and examined the patient. I reviewed the documentation, medical decision making, and treatment plan as noted by the mid-level provider above. I agree with the findings and plan of care. CORI SHAW MD, MIRTA L [facility] Apr 17, 2024 13:40
[2024-04-17] MEDS: miDODRine HCL 5 MG TABLET PO ONE (14:33)
--- NOTE | 2024-04-17 14:37 | PN ---
This is a 48-year-old male with history of morbid obesity, diabetes mellitus, right inguinal hernia, presented to the hospital with abdominal pain and distention. The patient noticed increasing pain for the past 48 hours, Noticed swelling to the right groin area. The patient in the ER was found to have reducible right inguinal hernia. Due to increasing distention, CT of the abdomen was done, which shows soft tissue mass in the cecum. Also, the patient was found to have multiple masses in the liver. The patient has history of weight loss. No fever, no chills. Denies diarrhea. No nausea and vomiting. Colonoscopy was done which showed possible cecal mass with almost complete obstruction. Paracentesis was done. There is suspicious for positive for malignancy. We do not have the final report, The patient presents with suspected colon cancer, but lacks a definitive tissue diagnosis. A port placement surgery was performed by Dr. Maguire, and a superficial biopsy was conducted, but the results were inconclusive and did not show cancer. Multiple lesions are visible on imaging. Patient reports a little nausea but denies any pain. Hemoglobin levels are reported as good. The patient denies bleeding from the rectum Patient had diverting colostomy. Liver biopsy was consistent with adenocarcinoma consistent with metastatic disease from the colon mass. Patient denies any obvious bleeding. This patient is ready for his palliative chemotherapy treatment. Patient refusing hospice. This patient have family issue. And his aunt actually brought him for treatment today. Patient feeling tired and fatigued. But this patient actually wanted treatment. Patient came to the emergency department with the patient hypotensive. Patient was given IV fluid. Patient on small dose of pressors. Patient was admitted to the intensive care unit. As this patient had paracentesis done with 6.5 L removed 04/14/24. Patient feeling a bit better. Patient also receiving albumin through the IV. Vitals: Height: 67 in; Weight: None Today; Blood pressure: 94/65, Pulse: 105, Temperature: 97 F, Respirations: 16, Pain Scale: 0 Karnofsky: Not Assessed Physical Exam: Vitals: WEIGHT: 212 LBS. General: No acute distress. Well-developed. HEENT: Normocephalic. Atraumatic. EOMI. PERRLA. Moist mucous membranes. No oral lesions. Oral cavity is clear. Neck: Supple. No cervical adenopathy. No supraclavicular adenopathy. Spine: Nontender to percussion. Lungs: No increased work of breathing. No use of accessory muscles. Heart: Good peripheral perfusion. Abdomen: Soft.Colostomy bag in place. Extremities: No lower extremity edema. No cyanosis. No clubbing. Normal 2+ pulses bilaterally. Neurological: Intact. Impression: 1. New diagnosis of metastatic right colon cancer to the liver. Biopsy from the liver was positive for adenocarcinoma consistent with colon origin. Status post colostomy bag in place. This patient have family issue. And his aunt actually brought him for treatment today. Patient feeling tired and fatigued. But this patient actually wanted treatment. Patient was started on chemotherapy treatment with 5-FU irinotecan. Patient received his first cycle. Patient on 5-FU pump 2. Diabetes mellitus 3. Persistent nausea 4. Anemia 5. Hypotension 6. Ascites status post paracentesis for 6.5 L Plan 1. We will hold chemotherapy treatment. We stopped the continuous infusion chemo yesterday. It is okay to use his for Sydni 2. No need for blood product transfusion 3. This patient have metastatic colorectal cancer with the patient refusing hospice. 4. Continue care as per primary 5. Patient also Refusing DNR/DNI 6. If this patient stable maybe he could be discharged to follow-up with me in 2 weeks to the office Vitals/Labs Vital Signs Date Time Temp Pulse Resp B/P (MAP) Pulse Ox O2 Delivery O2 Flow Rate FiO2 04/17/24 14:02 99.5 86 19 96/54 96 04/17/24 08:00 Room Air* 0 21 Laboratory Tests 04/17/24 04:55 Medications Current Medications Sodium Chloride 1,000 ml @ 100 mls/hr ONCE ONCE IV Last administered on 04/12/24at 20:18; Start 04/12/24 at 20:00; Stop 04/13/24 at 05:59; Status DC Ondansetron HCl 4 mg ONCE ONCE IVP Last administered on 04/12/24at 20:19; Start 04/12/24 at 20:00; Stop 04/12/24 at 20:06; Status DC Piperacillin Sod/ Tazobactam Sod 50 ml @ 200 mls/hr ONCE STAT IVPB Last administered on 04/12/24at 20:18; Start 04/12/24 at 20:04; Stop 04/12/24 at 20:18; Status DC Albumin Human 50 ml @ 0 mls/hr AD IV Last administered on 04/12/24at 20:59; Start 04/12/24 at 20:30; Stop 04/14/24 at 08:56; Status DC Norepinephrine 250 ml @ 37.425 mls/ hr PROTOCOL IV Last administered on 04/14/24at 08:48; Start 04/12/24 at 21:00; Stop 04/15/24 at 16:42; Status DC Meropenem 1 gm/ Sodium Chloride 100 ml @ 33.333 mls/ hr Q12H IVPB; Start 04/12/24 at 22:00; Stop 04/12/24 at 23:44; Status DC Linezolid 300 ml @ 150 mls/hr Q12H IV Last administered on 04/17/24at 09:05; Start 04/12/24 at 22:00; Stop 04/22/24 at 21:59 Acetaminophen 650 mg Q6H PRN RC; Start 04/12/24 at 22:00; Stop 05/12/24 at 21:59 Ondansetron HCl 4 mg Q6H PRN IVP Last administered on 04/14/24at 06:22; Start 04/12/24 at 22:00; Stop 04/14/24 at 08:56; Status DC Heparin Sodium (Porcine) 5,000 unit Q12H SQ Last administered on 04/14/24at 22:04; Start 04/12/24 at 22:00; Stop 04/15/24 at 06:55; Status DC Sodium Bicarbonate 100 meq ONCE ONCE IV Last administered on 04/12/24at 23:52; Start 04/13/24 at 00:00; Stop 04/13/24 at 00:01; Status DC Meropenem 1 gm Q12H IVPB Last administered on 04/14/24at 00:14; Start 04/12/24 at 23:45; Stop 04/14/24 at 08:57; Status DC Sodium Chloride 1,275 ml @ 425 mls/hr ONCE ONCE IV Last administered on 04/13/24at 08:45; Start 04/13/24 at 08:30; Stop 04/13/24 at 11:29; Status DC Ondansetron HCl 4 mg Q6H PRN IVP; Start 04/13/24 at 11:00; Stop 05/13/24 at 10:59 Morphine Sulfate 2 mg [id number] ONCE IVP Last administered on 04/13/24at 10:56; Start 04/13/24 at 12:00; Stop 04/13/24 at 12:01; Status DC Cyclobenzaprine HCl 500 mg QIDP PRN PO; Start 04/13/24 at 13:00; Stop 04/13/24 at 17:17; Status DC Sodium Bicarbonate 150 meq/Dextrose 1,150 ml @ 75 mls/hr [id number] IVP Last administered on 04/15/24at 01:24; Start 04/13/24 at 15:30; Stop 04/15/24 at 11:47; Status DC Sodium Bicarbonate 650 mg BID PO; Start 04/13/24 at 21:00; Stop 04/13/24 at 15:23; Status DC Cyclobenzaprine HCl 5 mg QIDP PRN PO Last administered on 04/14/24at 22:49; Start 04/13/24 at 17:30; Stop 05/13/24 at 17:29 Meropenem 1 gm/ Sodium Chloride 100 ml @ 33.333 mls/ hr Q24H IVPB Last administered on 04/17/24at 00:56; Start 04/15/24 at 01:00; Stop 04/25/24 at 00:59 Pantoprazole Sodium 40 mg DAILY IVP Last administered on 04/17/24at 09:05; Start 04/14/24 at 11:30; Stop 05/14/24 at 11:29 Albumin Human 200 ml @ 0 mls/hr ONCE PRN IV; Start 04/14/24 at 12:00; Stop 04/15/24 at 11:59; Status DC Insulin Human Regular INSULIN SLIDING SCAL... ACHS SQ Last administered on 04/17/24at 12:22; Start 04/14/24 at 16:30; Stop 05/14/24 at 16:29 Dextrose 50 ml AD PRN IV; Start 04/14/24 at 16:00; Stop 05/14/24 at 15:59 Glucagon 1 mg AD PRN IM; Start 04/14/24 at 16:00; Stop 05/14/24 at 15:59 Sodium Chloride 1,000 ml @ 100 mls/hr Q10H IV Last administered on 04/17/24at 14:34; Start 04/15/24 at 12:00; Stop 05/15/24 at 11:59 Heparin Sodium (Porcine) 5,000 unit Q12H SQ Last administered on 04/17/24at 12:23; Start 04/15/24 at 12:00; Stop 05/15/24 at 11:59 Metoclopramide HCl 10 mg ONCE IVP Last administered on 04/15/24at 17:56; Start 04/15/24 at 17:00; Stop 04/15/24 at 21:00; Status DC Metoclopramide HCl 10 mg BID PRN IVP; Start 04/15/24 at 17:00; Stop 05/15/24 at 16:59 Atorvastatin Calcium 40 mg HS PO Last administered on 04/16/24at 19:33; Start 04/16/24 at 21:00; Stop 05/16/24 at 20:59 Tamsulosin HCl 0.4 mg HS PO Last administered on 04/16/24at 19:33; Start 04/16/24 at 21:00; Stop 05/16/24 at 20:59 Ferrous Sulfate 325 mg DAILY PO Last administered on 04/17/24at 09:05; Start 04/17/24 at 09:00; Stop 05/17/24 at 08:59 Albumin Human 200 ml @ As Directed STK-MED ONCE IV; Start 04/17/24 at 13:25; Stop 04/17/24 at 13:25; Status DC Midodrine 10 mg ONCE ONCE PO Last administered on 04/17/24at 14:33; Start 04/17/24 at 14:30; Stop 04/17/24 at 14:31; Status DC CRISTIAN CRANE MD Apr 17, 2024 14:37
[2024-04-17] MEDS: BENZOCAINE/MENTH/CETYLPYRD CL 1 EACH LOZENGE MM SCH (16:51)
[2024-04-17 16:53] LABS: INFLUENZA TYPE A Negative For Type A (NEGATIVE); INFLUENZA TYPE B Negative For Type B (NEGATIVE)
--- NOTE | 2024-04-17 19:52 | PN ---
FOLLOWUP NOTE SUBJECTIVE: The patient offers no new complaints. No major events overnight that have been reported. OBJECTIVE: GENERAL: The patient is not in any acute distress. VITAL SIGNS: Blood pressure 123/78, respirations 18, pulse 89, temperature 97.9. LUNGS: Clear to auscultation and inspection. HEART: Normal cardiac sound. ABDOMEN: Soft, nondistended. EXTREMITIES: No edema. LABORATORY DATA: Sodium 133, BUN 58, creatinine 2.3, albumin is 2.2. ASSESSMENT: * Acute kidney injury due to acute tubular necrosis and the patient had developed septic shock. The renal function shows some progressive improvement as the patient is improving clinically. Latest serum creatinine is 2.3 with a maximum ranges of 3.5. * Septic shock. * Diabetes mellitus type 2. * Hypertension. * Hyponatremia. * Obesity. * Metastatic colon carcinoma. PLAN: Maintain adequate hydration and nutritional support. Continue monitoring renal function. As the patient is improving, there is no consideration for any intervention such as GERIATRIC PERSONAL CARE AIDE. Further recommendations as I follow the patient. TID: [id number] RECEIPT: [id number]
[2024-04-17] MEDS: miDODRine HCL 5 MG TABLET PO SCH (21:13)
[2024-04-18] VITALS (12 sets, daily range): BP systolic 90–100; BP diastolic 52–61; PULSE 67–94; RESP 14–19; TEMP 97.7–98.8; O2SAT 96–100
[2024-04-18 05:13] LABS: EOSINOPHILS # (AUTO) 0.08 K/uL (0.00-0.70); EOSINOPHILS % (AUTO) 3.9 % (0.0-8.0); HEMATOCRIT 25.2 % (42-54); IMMATURE GRANULOCYTE ABSOLUTE 0.01 K/uL (0-1); LYMPHOCYTES # (AUTO) 0.7 K/uL (1.0-4.8); LYMPHOCYTES % (AUTO) 35.8 % (21.0-51.0); MEAN CORPUSCULAR HEMOGLOBIN 24.4 pg (27.0-33.0); MEAN CORPUSCULAR HGB CONC 31.7 g/dL (32.0-36.0); MEAN CORPUSCULAR VOLUME 76.8 fL (79-99); MONOCYTES # (AUTO) 0.1 K/uL (0.1-1.0); MONOCYTES % (AUTO) 2.5 % (3.0-13.0); NEUTROPHILS # (AUTO) 1.2 K/uL (1.8-7.7); NEUTROPHILS % (AUTO) 57.3 % (40.0-77.0); PLATELET COUNT (AUTO) 86 K/uL (130-400); RED BLOOD CELL COUNT(AUTO) 3.28 MIL/uL (4.50-6.20); RED CELL DISTRIBUTION WIDTH 19.8 % (11.0-15.5)
[2024-04-18 05:34] LABS: CREATININE 2.1 mg/dL (0.5-1.3); MAGNESIUM 1.8 mg/dL (1.80-2.40); POTASSIUM 3.7 mmol/L (3.5-5.1)
--- NOTE | 2024-04-18 11:51 | PN ---
INFECTIOUS DISEASE PROGRESS NOTE Date of Service: Apr 18, 2024 SUBJECTIVE: Patient was seen and examined at bedside in room 323. Patient is awake, alert and oriented x 3. Patient is status post paracentesis day #1 with 7.5 L removed. No reports of fever, temperature is 97.9. The WBC however dropped to 2.0 and platelets of 86. Patient voiced sore throat last night and was placed on Cepacol lozenges. Swabbed for influenza A and B and resulted negative. This morning patient continues hypotensive with SBP in the 90s and DBP in the 50s. We will give albumin one time dose and continue on midodrine as scheduled. Patient continues on linezolid and meropenem. We will start spironolactone 25 mg daily and Lasix 20 mg daily to help with the ascites as recommended by Dr. Garza. We will also have Physical therapy evaluate and treat in preparation to discharge patient tomorrow if stable. We will continue to monitor patient's care. PHYSICAL EXAM EYES: Anicteric. Pupils equal and reactive. HENT: No oral thrush seen, moist Oral mucosa. NECK: Supple, no JVD or thyromegaly. LUNGS: Good air entry. No rales, no rhonchi. CARDIOVASCULAR: S1, S2 regular. No murmur heard. ABDOMEN: Soft, non tender, bowel sounds present, no organomegaly. Colostomy. CENTRAL NERVOUS SYSTEM: Awake, alert, oriented x 3. SKIN: No rashes, no swelling. LYMPHATICS: No peripheral lymphadenopathy. MUSCULOSKELETAL: No joint swelling, erythema or tenderness. EXTREMITIES: No cyanosis or clubbing. BACK: No deformity, no pressure ulcer. GENITOURINARY: No dysuria or hematuria. Vital Sign (Last 12 Hours) 04/17/24 04/18/24 04/18/24 04/18/24 23:57 00:40 04:37 07:00 Temp 98.2 98.4 Pulse 72 94 72 93 Resp 16 17 16 14 B/P (MAP) 92/55 96/59 Pulse Ox 97 99 O2 Delivery Room Air BIPAP FiO2 30 30 04/18/24 04/18/24 08:00 08:17 Temp 97.9 Pulse 78 Resp 16 B/P (MAP) 98/52 Pulse Ox 100 100 O2 Delivery Room Air* O2 Flow Rate 0 FiO2 21 Intake & Output (last 24hrs) 04/17/24 04/17/24 04/18/24 15:00 23:00 07:00 Intake Total 300.0 ml Output Total 850 ml Balance -550.0 ml LABS: Laboratory: Test 04/18/24 11:07 04/18/24 05:33 04/18/24 04:54 04/17/24 16:30 Range/Units Whole Blood Glucose 151 H 70-110 MG/DL Bedside Glucose Comment Protocol Initiated White Blood Count 2.0 #L 4.8-10.8 K/uL Red Blood Count 3.28 L 4.50-6.20 MIL/uL Hemoglobin 8.0 L 14.0-18.0 g/dL Hematocrit 25.2 L 42-54 % Mean Corpuscular Volume 76.8 L 79-99 fL Mean Corpuscular Hemoglobin 24.4 L 27.0-33.0 pg Mean Corpuscular Hemoglobin Concent 31.7 L 32.0-36.0 g/dL Red Cell Distribution Width 19.8 H 11.0-15.5 % Platelet Count 86 #L 130-400 K/uL Mean Platelet Volume 9.3 7.5-10.5 fL Immature Granulocyte % (Auto) 0.5 0-1 % Neutrophils (%) (Auto) 57.3 40.0-77.0 % Lymphocytes (%) (Auto) 35.8 21.0-51.0 % Monocytes (%) (Auto) 2.5 L 3.0-13.0 % Eosinophils (%) (Auto) 3.9 0.0-8.0 % Basophils (%) (Auto) 0.0 0.0-5.0 % Neutrophils # (Auto) 1.2 L 1.8-7.7 K/uL Lymphocytes # (Auto) 0.7 L 1.0-4.8 K/uL Monocytes # (Auto) 0.1 0.1-1.0 K/uL Eosinophils # (Auto) 0.08 0.00-0.70 K/uL Basophils # (Auto) 0.00 0.00-0.20 K/uL Absolute Immature Granulocyte (auto 0.01 0-1 K/uL Nucleated Red Blood Cells 0.0 0.0-0.19 % Sodium Level 132 L 136-145 mmol/L Potassium Level 3.7 3.5-5.1 mmol/L Chloride Level 100 L 101-111 mmol/L Carbon Dioxide Level 23 21-32 mmol/L Blood Urea Nitrogen 51 H 7-18 mg/dL Creatinine 2.1 H 0.5-1.3 mg/dL Glomerular Filtration Rate Calc 38 >90 mL/min Random Glucose 137 H 70-105 mg/dL Total Calcium 7.6 L 8.5-10.1 mg/dL Magnesium Level 1.80 1.80-2.40 mg/dL Influenza Type A Antigen Negative For Type A NEGATIVE Influenza Type B Antigen Negative For Type B NEGATIVE Test 04/17/24 04:55 Range/Units Total Bilirubin 1.2 H 0.2-1.0 mg/dL Aspartate Amino Transf (AST/SGOT) 48 H 10-37 U/L Alanine Aminotransferase (ALT/SGPT) 33 # 12-78 U/L Alkaline Phosphatase 415 H 50-136 U/L Total Protein 4.8 L 6.0-8.3 g/dL Albumin 2.2 L 3.5-5.0 g/dL ASSESSMENT: Septic shock. Malignant ascites, s/p ultrasound-guided paracentesis with 7.5 L removed on 04/17/2024. Metastatic colon cancer. Nausea or vomiting. Leukocytosis. Acute renal failure. Diabetes mellitus. Hypotensive. Thrombocytopenia. PLAN: Patient was started on midodrine 10 mg p.o. b.i.d.. Patient will be given albumin x 1 dose. Start [id number] mg daily and Lasix 20 mg daily as recommended by Dr. Garza. Continue meropenem. Continue linezolid. Continue GI prophylaxis. Continue antiemetics. Continue IV fluids. Continue pain management. Continue colostomy care. Physical therapy to evaluate and treat. Discharge planning for tomorrow if stable. This case was reviewed and discussed with my supervising physician and the above assessment and plan was formulated and agreed upon. ATTESTATION BY PHYSICIAN I have seen and examined the patient. I reviewed the documentation, medical decision making, and treatment plan as noted by the mid-level provider above. I agree with the findings and plan of care. CORI SHAW MD, MIRTA L [facility] Apr 18, 2024 11:50
[2024-04-18] MEDS: ALBUMIN (HUMAN) 25% 50 ML IV SCH (12:46)
--- NOTE | 2024-04-18 13:46 | PN ---
PROGRESS NOTE Date of Service: Apr 18, 2024 Time of Service: 13:44 SUBJECTIVE: Examined at bedside. No new concerns. No acute events reported in the last 24hours. Denies fever chills and pain. REVIEW OF SYSTEMS CONSTITUTIONAL: Denies fever, chills, or fatigue. HEAD/FACE: No signs of trauma. EENT: Denies eye pain, blurred vision, double vision, or light sensitivity. RESPIRATORY: Denies shortness of breath, cough, wheezing CARDIOVASCULAR: Denies chest pain, palpitation, syncope GASTROINTESTINAL/ABDOMINAL: Denies abdominal pain, constipation, diarrhea, nausea or vomiting GENITOURINARY: Denies dysuria or hematuria. MUSCULOSKELETAL: Denies joint pain, tenderness, or trauma. INTEGUMENTARY: Denies rash or itchiness NEUROLOGICAL/PSYCH: Denies anxiety, depression, heat or cold intolerance. PHYSICAL EXAM EYES: Anicteric. Pupils equal and reactive. HENT: No oral thrush seen, moist Oral mucosa NECK: Supple, no JVD or thyromegaly. LUNGS: Good air entry. No rales, no rhonchi. CARDIOVASCULAR: S1, S2 regular. No murmur heard. ABDOMEN: Soft, non tender, bowel sounds present, no organomegaly CENTRAL NERVOUS SYSTEM: Awake, alert, oriented x 3. No focal deficits. SKIN: No rashes, no swelling. LYMPHATICS: No peripheral lymphadenopathy MUSCULOSKELETAL: No joint swelling, erythema or tenderness. EXTREMITIES: No cyanosis or clubbing BACK: No deformity, no pressure ulcer. GENITOURINARY: No dysuria or hematuria Vital Signs (last 8hr) Date Time Temp Pulse Resp B/P (MAP) Pulse Ox O2 Delivery O2 Flow Rate FiO2 04/18/24 11:48 98.8 67 19 100/60 96 04/18/24 08:30 80 19 N/A Room Air 21 04/18/24 08:17 97.9 78 16 98/52 100 04/18/24 08:00 100 Room Air* 0 21 04/18/24 07:00 93 14 30 LABS: Laboratory: Test 04/18/24 11:07 04/18/24 05:33 04/18/24 04:54 04/17/24 16:30 Range/Units Whole Blood Glucose 151 H 70-110 MG/DL Bedside Glucose Comment Protocol Initiated White Blood Count 2.0 #L 4.8-10.8 K/uL Red Blood Count 3.28 L 4.50-6.20 MIL/uL Hemoglobin 8.0 L 14.0-18.0 g/dL Hematocrit 25.2 L 42-54 % Mean Corpuscular Volume 76.8 L 79-99 fL Mean Corpuscular Hemoglobin 24.4 L 27.0-33.0 pg Mean Corpuscular Hemoglobin Concent 31.7 L 32.0-36.0 g/dL Red Cell Distribution Width 19.8 H 11.0-15.5 % Platelet Count 86 #L 130-400 K/uL Mean Platelet Volume 9.3 7.5-10.5 fL Immature Granulocyte % (Auto) 0.5 0-1 % Neutrophils (%) (Auto) 57.3 40.0-77.0 % Lymphocytes (%) (Auto) 35.8 21.0-51.0 % Monocytes (%) (Auto) 2.5 L 3.0-13.0 % Eosinophils (%) (Auto) 3.9 0.0-8.0 % Basophils (%) (Auto) 0.0 0.0-5.0 % Neutrophils # (Auto) 1.2 L 1.8-7.7 K/uL Lymphocytes # (Auto) 0.7 L 1.0-4.8 K/uL Monocytes # (Auto) 0.1 0.1-1.0 K/uL Eosinophils # (Auto) 0.08 0.00-0.70 K/uL Basophils # (Auto) 0.00 0.00-0.20 K/uL Absolute Immature Granulocyte (auto 0.01 0-1 K/uL Nucleated Red Blood Cells 0.0 0.0-0.19 % Sodium Level 132 L 136-145 mmol/L Potassium Level 3.7 3.5-5.1 mmol/L Chloride Level 100 L 101-111 mmol/L Carbon Dioxide Level 23 21-32 mmol/L Blood Urea Nitrogen 51 H 7-18 mg/dL Creatinine 2.1 H 0.5-1.3 mg/dL Glomerular Filtration Rate Calc 38 >90 mL/min Random Glucose 137 H 70-105 mg/dL Total Calcium 7.6 L 8.5-10.1 mg/dL Magnesium Level 1.80 1.80-2.40 mg/dL Influenza Type A Antigen Negative For Type A NEGATIVE Influenza Type B Antigen Negative For Type B NEGATIVE Test 04/17/24 04:55 Range/Units Total Bilirubin 1.2 H 0.2-1.0 mg/dL Aspartate Amino Transf (AST/SGOT) 48 H 10-37 U/L Alanine Aminotransferase (ALT/SGPT) 33 # 12-78 U/L Alkaline Phosphatase 415 H 50-136 U/L Total Protein 4.8 L 6.0-8.3 g/dL Albumin 2.2 L 3.5-5.0 g/dL DIAGNOSTICS / RADIOLOGY: CT ABDOMEN/PELVIS W/O CONTRAST HISTORY: Abdominal distention COMPARISON: CT from 03/18/2024 TECHNIQUE: Multiple sequential axial images of the abdomen and pelvis were obtained from the dome of the diaphragm through symphysis pubis. Patient was not given contrast through intravenous route. Oral contrast was not given. FINDINGS: There are bilateral pleural effusions with compressive atelectasis . There is left lingular pulmonary nodule measuring 18 mm. Degenerative changes of the thoracolumbar spine are present. The heart is not enlarged. Extensive hepatic nodules are seen throughout the liver appears cirrhotic changes of the liver are noted. Liver measures 16.4 cm. Spleen measures 12 cm. Spleen, adrenal glands and pancreas are unremarkable. There is no evidence of hydronephrosis bilaterally. No evidence of renal stone is seen. Fecal material is seen in the colon. There are borderline retroperitoneal and mesenteric lymph nodes. There is ascites. Anasarca. Atherosclerotic changes are present. There appears be soft tissue mass in the region of the ascending colon measuring 8.3 x 7.7 cm with neoplastic process not excluded. There are bilateral inguinal/scrotal hernias with fluid content with right worse than left. Pelvic sidewalls are symmetric bilaterally. Bladder is well distended without wall thickening. IMPRESSION: 1. Extensive hepatic nodules. Hepatosplenomegaly. Bilateral pleural effusions with compressive atelectasis. Left lingular pulmonary nodule. Ascites. Anasarca. Soft tissue mass in the region of the ascending colon measuring 8.3 x 7.7 cm may be related to colon cancer. Clinical correlation is recommended. Borderline retroperitoneal mesenteric adenopathy is seen. Bilateral scrotal hernias with fluid content. CT was performed with one or more following dose reduction techniques: automated exposure control, adjustment of the mA and kv according to patient's size, or use of a iterative reconstruction technique.+ ASSESSMENT: NATALY likley ATN likely etiology is acute tubular necrosis in a patient who is admitted septic shock., patient did have some history of CKD 2 Last known renal function earlier this month 22 MAR 2024 GFR 68 and Cr 1.3. The renal function shows some progressive improvement as the patient is improving clinically. Diabetes HTN Hyponatremia Anemia Metabolic acidosis Metastatic colon carcinoma. Obesity. PLAN: Monitor Renal function: improvement in the last 24hours FLuid intake 1.2 L Free water QD Monitor Electrolytes Na 132 Monitor I's and O's, daily weights No need for RU[employer] CUTTING [employer]ACHINE T[employer]ER Renal diet Dose to renal clearance [facility] Apr 18, 2024 13:46
--- NOTE | 2024-04-18 13:47 | PN ---
This is a 48-year-old male with history of morbid obesity, diabetes mellitus, right inguinal hernia, presented to the hospital with abdominal pain and distention. The patient noticed increasing pain for the past 48 hours, Noticed swelling to the right groin area. The patient in the ER was found to have reducible right inguinal hernia. Due to increasing distention, CT of the abdomen was done, which shows soft tissue mass in the cecum. Also, the patient was found to have multiple masses in the liver. The patient has history of weight loss. No fever, no chills. Denies diarrhea. No nausea and vomiting. Colonoscopy was done which showed possible cecal mass with almost complete obstruction. Paracentesis was done. There is suspicious for positive for malignancy. We do not have the final report, The patient presents with suspected colon cancer, but lacks a definitive tissue diagnosis. A port placement surgery was performed by Dr. Maguire, and a superficial biopsy was conducted, but the results were inconclusive and did not show cancer. Multiple lesions are visible on imaging. Patient reports a little nausea but denies any pain. Hemoglobin levels are reported as good. The patient denies bleeding from the rectum Patient had diverting colostomy. Liver biopsy was consistent with adenocarcinoma consistent with metastatic disease from the colon mass. Patient denies any obvious bleeding. This patient is ready for his palliative chemotherapy treatment. Patient refusing hospice. This patient have family issue. And his aunt actually brought him for treatment today. Patient feeling tired and fatigued. But this patient actually wanted treatment. Patient came to the emergency department with the patient hypotensive. Patient was given IV fluid. Patient on small dose of pressors. Patient was admitted to the intensive care unit. As this patient had paracentesis done with 6.5 L removed 04/14/24. Patient feeling a bit better. Patient also receiving albumin through the IV. Vitals: Height: 67 in; Weight: None Today; Blood pressure: 94/65, Pulse: 105, Temperature: 97 F, Respirations: 16, Pain Scale: 0 Karnofsky: Not Assessed Physical Exam: Vitals: WEIGHT: 212 LBS. General: No acute distress. Well-developed. HEENT: Normocephalic. Atraumatic. EOMI. PERRLA. Moist mucous membranes. No oral lesions. Oral cavity is clear. Neck: Supple. No cervical adenopathy. No supraclavicular adenopathy. Spine: Nontender to percussion. Lungs: No increased work of breathing. No use of accessory muscles. Heart: Good peripheral perfusion. Abdomen: Soft.Colostomy bag in place. Extremities: No lower extremity edema. No cyanosis. No clubbing. Normal 2+ pulses bilaterally. Neurological: Intact. Impression: 1. New diagnosis of metastatic right colon cancer to the liver. Biopsy from the liver was positive for adenocarcinoma consistent with colon origin. Status post colostomy bag in place. This patient have family issue. And his aunt actually brought him for treatment today. Patient feeling tired and fatigued. But this patient actually wanted treatment. Patient was started on chemotherapy treatment with 5-FU irinotecan. Patient received his first cycle. 2. Diabetes mellitus 3. Persistent nausea 4. Anemia 5. Hypotension 6. Ascites status post paracentesis for 6.5 L Plan 1. We will hold chemotherapy treatment. We stopped the continuous infusion chemo yesterday. It is okay to use his for Sydni 2. No need for blood product transfusion 3. This patient have metastatic colorectal cancer with the patient refusing hospice. 4. Continue care as per primary 5. Patient also Refusing DNR/DNI 6. I discussed the case with the primary. We will try to The Paracentesis Otherwise This Patient Will Lose the Muscle Mass. Will Try to Do Lasix and Spironolactone. 7. We Advised Patient Also to Stop Taking Any Salt 8. We Need Physical Therapy to See This Patient Even Though This Patient Have a Low Blood Pressure Vitals/Labs Vital Signs Date Time Temp Pulse Resp B/P (MAP) Pulse Ox O2 Delivery O2 Flow Rate FiO2 04/18/24 11:48 98.8 67 19 100/60 96 04/18/24 08:30 N/A Room Air 21 04/18/24 08:00 0 Laboratory Tests 04/18/24 04:54 Medications Current Medications Sodium Chloride 1,000 ml @ 100 mls/hr ONCE ONCE IV Last administered on 04/12/24at 20:18; Start 04/12/24 at 20:00; Stop 04/13/24 at 05:59; Status DC Ondansetron HCl 4 mg ONCE ONCE IVP Last administered on 04/12/24at 20:19; Start 04/12/24 at 20:00; Stop 04/12/24 at 20:06; Status DC Piperacillin Sod/ Tazobactam Sod 50 ml @ 200 mls/hr ONCE STAT IVPB Last administered on 04/12/24at 20:18; Start 04/12/24 at 20:04; Stop 04/12/24 at 20:18; Status DC Albumin Human 50 ml @ 0 mls/hr AD IV Last administered on 04/12/24at 20:59; Start 04/12/24 at 20:30; Stop 04/14/24 at 08:56; Status DC Norepinephrine 250 ml @ 37.425 mls/ hr PROTOCOL IV Last administered on 04/14/24at 08:48; Start 04/12/24 at 21:00; Stop 04/15/24 at 16:42; Status DC Meropenem 1 gm/ Sodium Chloride 100 ml @ 33.333 mls/ hr Q12H IVPB; Start 04/12/24 at 22:00; Stop 04/12/24 at 23:44; Status DC Linezolid 300 ml @ 150 mls/hr Q12H IV Last administered on 04/18/24at 10:22; Start 04/12/24 at 22:00; Stop 04/22/24 at 21:59 Acetaminophen 650 mg Q6H PRN RC; Start 04/12/24 at 22:00; Stop 05/12/24 at 21:59 Ondansetron HCl 4 mg Q6H PRN IVP Last administered on 04/14/24at 06:22; Start 04/12/24 at 22:00; Stop 04/14/24 at 08:56; Status DC Heparin Sodium (Porcine) 5,000 unit Q12H SQ Last administered on 04/14/24at 22:04; Start 04/12/24 at 22:00; Stop 04/15/24 at 06:55; Status DC Sodium Bicarbonate 100 meq ONCE ONCE IV Last administered on 04/12/24at 23:52; Start 04/13/24 at 00:00; Stop 04/13/24 at 00:01; Status DC Meropenem 1 gm Q12H IVPB Last administered on 04/14/24at 00:14; Start 04/12/24 at 23:45; Stop 04/14/24 at 08:57; Status DC Sodium Chloride 1,275 ml @ 425 mls/hr ONCE ONCE IV Last administered on 04/13/24at 08:45; Start 04/13/24 at 08:30; Stop 04/13/24 at 11:29; Status DC Ondansetron HCl 4 mg Q6H PRN IVP; Start 04/13/24 at 11:00; Stop 05/13/24 at 10:59 Morphine Sulfate 2 mg [id number] ONCE IVP Last administered on 04/13/24at 10:56; Start 04/13/24 at 12:00; Stop 04/13/24 at 12:01; Status DC Cyclobenzaprine HCl 500 mg QIDP PRN PO; Start 04/13/24 at 13:00; Stop 04/13/24 at 17:17; Status DC Sodium Bicarbonate 150 meq/Dextrose 1,150 ml @ 75 mls/hr [id number] IVP Last administered on 04/15/24at 01:24; Start 04/13/24 at 15:30; Stop 04/15/24 at 11:47; Status DC Sodium Bicarbonate 650 mg BID PO; Start 04/13/24 at 21:00; Stop 04/13/24 at 15:23; Status DC Cyclobenzaprine HCl 5 mg QIDP PRN PO Last administered on 04/14/24at 22:49; Start 04/13/24 at 17:30; Stop 05/13/24 at 17:29 Meropenem 1 gm/ Sodium Chloride 100 ml @ 33.333 mls/ hr Q24H IVPB Last administered on 04/17/24at 23:58; Start 04/15/24 at 01:00; Stop 04/25/24 at 00:59 Pantoprazole Sodium 40 mg DAILY IVP Last administered on 04/18/24at 08:32; Start 04/14/24 at 11:30; Stop 05/14/24 at 11:29 Albumin Human 200 ml @ 0 mls/hr ONCE PRN IV; Start 04/14/24 at 12:00; Stop 04/15/24 at 11:59; Status DC Insulin Human Regular INSULIN SLIDING SCAL... ACHS SQ Last administered on 04/17/24at 12:22; Start 04/14/24 at 16:30; Stop 05/14/24 at 16:29 Dextrose 50 ml AD PRN IV; Start 04/14/24 at 16:00; Stop 05/14/24 at 15:59 Glucagon 1 mg AD PRN IM; Start 04/14/24 at 16:00; Stop 05/14/24 at 15:59 Sodium Chloride 1,000 ml @ 100 mls/hr Q10H IV Last administered on 04/18/24at 08:33; Start 04/15/24 at 12:00; Stop 05/15/24 at 11:59 Heparin Sodium (Porcine) 5,000 unit Q12H SQ Last administered on 04/18/24at 12:51; Start 04/15/24 at 12:00; Stop 05/15/24 at 11:59 Metoclopramide HCl 10 mg ONCE IVP Last administered on 04/15/24at 17:56; Start 04/15/24 at 17:00; Stop 04/15/24 at 21:00; Status DC Metoclopramide HCl 10 mg BID PRN IVP; Start 04/15/24 at 17:00; Stop 05/15/24 at 16:59 Atorvastatin Calcium 40 mg HS PO Last administered on 04/17/24at 21:13; Start 04/16/24 at 21:00; Stop 05/16/24 at 20:59 Tamsulosin HCl 0.4 mg HS PO Last administered on 04/17/24at 21:13; Start 04/16/24 at 21:00; Stop 05/16/24 at 20:59 Ferrous Sulfate 325 mg DAILY PO Last administered on 04/18/24at 08:32; Start 04/17/24 at 09:00; Stop 05/17/24 at 08:59 Albumin Human 200 ml @ As Directed STK-MED ONCE IV; Start 04/17/24 at 13:25; Stop 04/17/24 at 13:25; Status DC Midodrine 10 mg ONCE ONCE PO Last administered on 04/17/24at 14:33; Start 04/17/24 at 14:30; Stop 04/17/24 at 14:31; Status DC Midodrine 10 mg BID PO Last administered on 04/18/24at 08:33; Start 04/17/24 at 21:00; Stop 05/17/24 at 20:59 Benzocaine 1 each TID MM Last administered on 04/18/24at 12:52; Start 04/17/24 at 16:30; Stop 04/20/24 at 09:00 Albumin Human 50 ml @ 0 mls/hr AD IV Last administered on 04/18/24at 12:46; Start 04/18/24 at 11:30; Stop 04/19/24 at 11:29 CRISTIAN CRANE MD Apr 18, 2024 13:47
[2024-04-18] MEDS: furoSEMIDE 20 MG TABLET PO SCH (20:54)
[2024-04-18] MEDS: SPIRONOLACTONE 25 MG TAB PO SCH (20:54)
[2024-04-19] VITALS (7 sets, daily range): BP systolic 93–101; BP diastolic 56–58; PULSE 83–90; RESP 16–24; TEMP 97.9–98.8; O2SAT 94–99
[2024-04-19 05:29] LABS: HEMATOCRIT 26.5 % (42-54); MEAN CORPUSCULAR HEMOGLOBIN 24.6 pg (27.0-33.0); MEAN CORPUSCULAR HGB CONC 32.5 g/dL (32.0-36.0); MEAN CORPUSCULAR VOLUME 75.7 fL (79-99); PLATELET COUNT (AUTO) 66 K/uL (130-400); RED CELL DISTRIBUTION WIDTH 19.6 % (11.0-15.5); WHITE BLOOD COUNT (AUTO) 2.2 K/uL (4.8-10.8)
[2024-04-19 05:45] LABS: ALBUMIN 2.4 g/dL (3.5-5.0); CREATININE 1.9 mg/dL (0.5-1.3); MAGNESIUM 1.9 mg/dL (1.80-2.40); POTASSIUM 3.6 mmol/L (3.5-5.1); TOTAL PROTEIN, SERUM 4.5 g/dL (6.0-8.3)
[2024-04-19 06:20] LABS: LYMPHOCYTES % (MANUAL) 39 % (22-44); MAN.DIFF COMMENT-IMPRESSION MANUAL DIFFERENTIAL; MONOCYTES % (MANUAL) 7 % (2-9); SEGMENTED NEUTROPHILS % 54 % (40-70); TOTAL CELLS COUNTED 100
[2024-04-19 06:21] LABS: PLATELET MORPHOLOGY COMMENT DECREASED
[2024-04-19] MEDS: TBO-FILGRASTIM 480 MCG/0.8 ML ML SQ ONE (14:14)
--- NOTE | 2024-04-19 16:28 | DS ---
DISCHARGE SUMMARY DATE OF SERVICE: 04/19/2024 PRESENTING COMPLAINT: Weakness and poor oral intake. HOSPITAL COURSE: A 48-year-old male with history of metastatic colon cancer, ascites, who presented to the hospital with above complaint. The patient found to have possible septic shock, was initially admitted to ICU. The patient was started on broad-spectrum antibiotic. The patient was stabilized in the ICU and eventually transferred to medical floor. The patient underwent paracentesis with about 6 liters of ascitic fluid removed. The patient is doing well clinically. Zapata catheter has been removed and he is able to urinate. The patient also found to have neutropenia and was given Granix. The patient is doing well clinically. The patient is cleared for discharge by ____ . FINAL DISCHARGE DIAGNOSES: * Septic shock, which resolved. * Colon cancer. * Underlying immunosuppression. * Diabetes mellitus. * Malignant ascites. * Obesity. * Debility. * Dehydration. PLAN: * The patient to be discharged home. * The patient to continue antidiabetic. * Follow up with oncologist. * Continue Lasix. * Continue spironolactone. * ____ . TID: [id number] RECEIPT: [id number]
--- NOTE | 2024-04-19 21:42 | PN ---
This is a 48-year-old male with history of morbid obesity, diabetes mellitus, right inguinal hernia, presented to the hospital with abdominal pain and distention. The patient noticed increasing pain for the past 48 hours, Noticed swelling to the right groin area. The patient in the ER was found to have reducible right inguinal hernia. Due to increasing distention, CT of the abdomen was done, which shows soft tissue mass in the cecum. Also, the patient was found to have multiple masses in the liver. The patient has history of weight loss. No fever, no chills. Denies diarrhea. No nausea and vomiting. Colonoscopy was done which showed possible cecal mass with almost complete obstruction. Paracentesis was done. There is suspicious for positive for malignancy. We do not have the final report, The patient presents with suspected colon cancer, but lacks a definitive tissue diagnosis. A port placement surgery was performed by Dr. Maguire, and a superficial biopsy was conducted, but the results were inconclusive and did not show cancer. Multiple lesions are visible on imaging. Patient reports a little nausea but denies any pain. Hemoglobin levels are reported as good. The patient denies bleeding from the rectum Patient had diverting colostomy. Liver biopsy was consistent with adenocarcinoma consistent with metastatic disease from the colon mass. Patient denies any obvious bleeding. This patient is ready for his palliative chemotherapy treatment. Patient refusing hospice. This patient have family issue. And his aunt actually brought him for treatment today. Patient feeling tired and fatigued. But this patient actually wanted treatment. Patient came to the emergency department with the patient hypotensive. Patient was given IV fluid. Patient on small dose of pressors. Patient was admitted to the intensive care unit. As this patient had paracentesis done with 6.5 L removed 04/14/24. Patient feeling a bit better. Patient also receiving albumin through the IV. Vitals: Height: 67 in; Weight: None Today; Blood pressure: 94/65, Pulse: 105, Temperature: 97 F, Respirations: 16, Pain Scale: 0 Karnofsky: Not Assessed Physical Exam: Vitals: WEIGHT: 212 LBS. General: No acute distress. Well-developed. HEENT: Normocephalic. Atraumatic. EOMI. PERRLA. Moist mucous membranes. No oral lesions. Oral cavity is clear. Neck: Supple. No cervical adenopathy. No supraclavicular adenopathy. Spine: Nontender to percussion. Lungs: No increased work of breathing. No use of accessory muscles. Heart: Good peripheral perfusion. Abdomen: Soft.Colostomy bag in place. Extremities: No lower extremity edema. No cyanosis. No clubbing. Normal 2+ pulses bilaterally. Neurological: Intact. Impression: 1. New diagnosis of metastatic right colon cancer to the liver. Biopsy from the liver was positive for adenocarcinoma consistent with colon origin. Status post colostomy bag in place. This patient have family issue. And his aunt actually brought him for treatment today. Patient feeling tired and fatigued. But this patient actually wanted treatment. Patient was started on chemotherapy treatment with 5-FU irinotecan. Patient received his first cycle. 2. Diabetes mellitus 3. Persistent nausea 4. Anemia 5. Hypotension 6. Ascites status post paracentesis for 6.5 L Plan 1. We will hold chemotherapy treatment. We stopped the continuous infusion chemo yesterday. It is okay to use his for Sydni 2. No need for blood product transfusion 3. This patient have metastatic colorectal cancer with the patient refusing hospice. 4. Continue care as per primary 5. Patient also Refusing DNR/DNI 6. I discussed the case with the primary. We will try to The Paracentesis Otherwise This Patient Will Lose the Muscle Mass. Will Try to Do Lasix and Spironolactone. 7. We Advised Patient Also to Stop Taking Any Salt 8. We Need Physical Therapy to See This Patient Even Though This Patient Have a Low Blood Pressure Vitals/Labs Vital Signs Date Time Temp Pulse Resp B/P (MAP) Pulse Ox O2 Delivery O2 Flow Rate FiO2 04/19/24 11:55 97.9 87 24 101/58 96 Room Air 04/19/24 08:00 0 21 Laboratory Tests 04/19/24 05:17 Medications Current Medications Sodium Chloride 1,000 ml @ 100 mls/hr ONCE ONCE IV Last administered on 04/12/24at 20:18; Start 04/12/24 at 20:00; Stop 04/13/24 at 05:59; Status DC Ondansetron HCl 4 mg ONCE ONCE IVP Last administered on 04/12/24at 20:19; Start 04/12/24 at 20:00; Stop 04/12/24 at 20:06; Status DC Piperacillin Sod/ Tazobactam Sod 50 ml @ 200 mls/hr ONCE STAT IVPB Last administered on 04/12/24at 20:18; Start 04/12/24 at 20:04; Stop 04/12/24 at 20:18; Status DC Albumin Human 50 ml @ 0 mls/hr AD IV Last administered on 04/12/24at 20:59; Start 04/12/24 at 20:30; Stop 04/14/24 at 08:56; Status DC Norepinephrine 250 ml @ 37.425 mls/ hr PROTOCOL IV Last administered on 04/14/24at 08:48; Start 04/12/24 at 21:00; Stop 04/15/24 at 16:42; Status DC Meropenem 1 gm/ Sodium Chloride 100 ml @ 33.333 mls/ hr Q12H IVPB; Start 04/12/24 at 22:00; Stop 04/12/24 at 23:44; Status DC Linezolid 300 ml @ 150 mls/hr Q12H IV Last administered on 04/19/24at 10:39; Start 04/12/24 at 22:00; Stop 04/19/24 at 16:49; Status DC Acetaminophen 650 mg Q6H PRN RC; Start 04/12/24 at 22:00; Stop 04/19/24 at 16:49; Status DC Ondansetron HCl 4 mg Q6H PRN IVP Last administered on 04/14/24at 06:22; Start 04/12/24 at 22:00; Stop 04/14/24 at 08:56; Status DC Heparin Sodium (Porcine) 5,000 unit Q12H SQ Last administered on 04/14/24at 22:04; Start 04/12/24 at 22:00; Stop 04/15/24 at 06:55; Status DC Sodium Bicarbonate 100 meq ONCE ONCE IV Last administered on 04/12/24at 23:52; Start 04/13/24 at 00:00; Stop 04/13/24 at 00:01; Status DC Meropenem 1 gm Q12H IVPB Last administered on 04/14/24at 00:14; Start 04/12/24 at 23:45; Stop 04/14/24 at 08:57; Status DC Sodium Chloride 1,275 ml @ 425 mls/hr ONCE ONCE IV Last administered on 04/13/24at 08:45; Start 04/13/24 at 08:30; Stop 04/13/24 at 11:29; Status DC Ondansetron HCl 4 mg Q6H PRN IVP; Start 04/13/24 at 11:00; Stop 04/19/24 at 16:49; Status DC Morphine Sulfate 2 mg [id number] ONCE IVP Last administered on 04/13/24at 10:56; Start 04/13/24 at 12:00; Stop 04/13/24 at 12:01; Status DC Cyclobenzaprine HCl 500 mg QIDP PRN PO; Start 04/13/24 at 13:00; Stop 04/13/24 at 17:17; Status DC Sodium Bicarbonate 150 meq/Dextrose 1,150 ml @ 75 mls/hr [id number] IVP Last administered on 04/15/24at 01:24; Start 04/13/24 at 15:30; Stop 04/15/24 at 11:47; Status DC Sodium Bicarbonate 650 mg BID PO; Start 04/13/24 at 21:00; Stop 04/13/24 at 15:23; Status DC Cyclobenzaprine HCl 5 mg QIDP PRN PO Last administered on 04/14/24at 22:49; Start 04/13/24 at 17:30; Stop 04/19/24 at 16:49; Status DC Meropenem 1 gm/ Sodium Chloride 100 ml @ 33.333 mls/ hr Q24H IVPB Last administered on 04/19/24at 00:17; Start 04/15/24 at 01:00; Stop 04/19/24 at 16:49; Status DC Pantoprazole Sodium 40 mg DAILY IVP Last administered on 04/19/24at 08:44; Start 04/14/24 at 11:30; Stop 04/19/24 at 16:49; Status DC Albumin Human 200 ml @ 0 mls/hr ONCE PRN IV; Start 04/14/24 at 12:00; Stop 04/15/24 at 11:59; Status DC Insulin Human Regular INSULIN SLIDING SCAL... ACHS SQ Last administered on 04/17/24at 12:22; Start 04/14/24 at 16:30; Stop 04/19/24 at 16:49; Status DC Dextrose 50 ml AD PRN IV; Start 04/14/24 at 16:00; Stop 04/19/24 at 16:49; Status DC Glucagon 1 mg AD PRN IM; Start 04/14/24 at 16:00; Stop 04/19/24 at 16:49; Status DC Sodium Chloride 1,000 ml @ 100 mls/hr Q10H IV Last administered on 04/18/24at 08:33; Start 04/15/24 at 12:00; Stop 04/19/24 at 16:49; Status DC Heparin Sodium (Porcine) 5,000 unit Q12H SQ Last administered on 04/19/24at 13:10; Start 04/15/24 at 12:00; Stop 04/19/24 at 16:49; Status DC Metoclopramide HCl 10 mg ONCE IVP Last administered on 04/15/24at 17:56; Start 04/15/24 at 17:00; Stop 04/15/24 at 21:00; Status DC Metoclopramide HCl 10 mg BID PRN IVP; Start 04/15/24 at 17:00; Stop 04/19/24 at 16:49; Status DC Atorvastatin Calcium 40 mg HS PO Last administered on 04/18/24at 20:51; Start 04/16/24 at 21:00; Stop 04/19/24 at 16:49; Status DC Tamsulosin HCl 0.4 mg HS PO Last administered on 04/18/24at 20:51; Start 04/16/24 at 21:00; Stop 04/19/24 at 16:49; Status DC Ferrous Sulfate 325 mg DAILY PO Last administered on 04/19/24at 08:46; Start 04/17/24 at 09:00; Stop 04/19/24 at 16:49; Status DC Albumin Human 200 ml @ As Directed STK-MED ONCE IV; Start 04/17/24 at 13:25; Stop 04/17/24 at 13:25; Status DC Midodrine 10 mg ONCE ONCE PO Last administered on 04/17/24at 14:33; Start 04/17/24 at 14:30; Stop 04/17/24 at 14:31; Status DC Midodrine 10 mg BID PO Last administered on 04/19/24at 08:46; Start 04/17/24 at 21:00; Stop 04/19/24 at 16:49; Status DC Benzocaine 1 each TID MM Last administered on 04/19/24at 13:08; Start 04/17/24 at 16:30; Stop 04/19/24 at 16:49; Status DC Albumin Human 50 ml @ 0 mls/hr AD IV Last administered on 04/18/24at 12:46; Start 04/18/24 at 11:30; Stop 04/19/24 at 11:29; Status DC Spironolactone 25 mg DAILY PO Last administered on 04/19/24at 08:46; Start 04/18/24 at 21:00; Stop 04/19/24 at 16:49; Status DC Furosemide 20 mg DAILY PO Last administered on 04/19/24at 08:46; Start 04/18/24 at 21:00; Stop 04/19/24 at 16:49; Status DC CRISTIAN CRANE MD Apr 19, 2024 21:42
== END 2024-04-19 16:15 | disposition home or self-care (01) | DRG 871 ==
LOC: EDH 18:52 → EDHIP 21:51 → 2CH 04-13 16:52 → 3DH 04-15 11:00
PROVIDERS: ADMIT Internal Medicine Infectious Disease; ATTEND Internal Medicine Infectious Disease
PROC: 5A09357 Assistance with Respiratory Ventilation, Less than 24 Consecutive Hours, Continuous Positive Airway Pressure (ICD-10-PCS; 2024-04-12)
PROC: 5A09357 Assistance with Respiratory Ventilation, Less than 24 Consecutive Hours, Continuous Positive Airway Pressure (ICD-10-PCS; 2024-04-13)
PROC: 0W9G3ZZ Drainage of Peritoneal Cavity, Percutaneous Approach (ICD-10-PCS; principal; 2024-04-14)
PROC: 5A09357 Assistance with Respiratory Ventilation, Less than 24 Consecutive Hours, Continuous Positive Airway Pressure (ICD-10-PCS; 2024-04-14)
PROC: 5A09457 Assistance with Respiratory Ventilation, 24-96 Consecutive Hours, Continuous Positive Airway Pressure (ICD-10-PCS; 2024-04-15)
PROC: 0W9G3ZZ Drainage of Peritoneal Cavity, Percutaneous Approach (ICD-10-PCS; 2024-04-17)
PROC: 3E02305 Introduction of Other Antineoplastic into Muscle, Percutaneous Approach (ICD-10-PCS; 2024-04-17)
PROC: 5A09357 Assistance with Respiratory Ventilation, Less than 24 Consecutive Hours, Continuous Positive Airway Pressure (ICD-10-PCS; 2024-04-18)
PROC: 5A09357 Assistance with Respiratory Ventilation, Less than 24 Consecutive Hours, Continuous Positive Airway Pressure (ICD-10-PCS; 2024-04-19)
DX: A41.9 Sepsis, unspecified organism (principal); J96.01 Acute respiratory failure with hypoxia; N17.0 Acute kidney failure with tubular necrosis; R65.21 Severe sepsis with septic shock; E87.1 Hypo-osmolality and hyponatremia; C78.7 Secondary malignant neoplasm of liver and intrahepatic bile duct; C18.2 Malignant neoplasm of ascending colon; N30.00 Acute cystitis without hematuria; C78.6 Secondary malignant neoplasm of retroperitoneum and peritoneum; R18.0 Malignant ascites; E87.20 Acidosis, unspecified; D84.9 Immunodeficiency, unspecified; J98.11 Atelectasis; K76.6 Portal hypertension; J91.8 Pleural effusion in other conditions classified elsewhere; E66.01 Morbid (severe) obesity due to excess calories; N18.2 Chronic kidney disease, stage 2 (mild); E11.22 Type 2 diabetes mellitus with diabetic chronic kidney disease; D64.9 Anemia, unspecified; E66.9 Obesity, unspecified; R54 Age-related physical debility; E86.0 Dehydration; K40.90 Unilateral inguinal hernia, without obstruction or gangrene, not specified as recurrent; I12.9 Hypertensive chronic kidney disease with stage 1 through stage 4 chronic kidney disease, or unspecified chronic kidney disease; D69.6 Thrombocytopenia, unspecified; D70.9 Neutropenia, unspecified; E78.5 Hyperlipidemia, unspecified; K74.60 Unspecified cirrhosis of liver; N40.0 Benign prostatic hyperplasia without lower urinary tract symptoms; Z17.22 Progesterone receptor negative status; Z80.0 Family history of malignant neoplasm of digestive organs; Z93.3 Colostomy status; Z83.3 Family history of diabetes mellitus; Z85.038 Personal history of other malignant neoplasm of large intestine; Z68.37 Body mass index [BMI] 37.0-37.9, adult
CPT/HCPCS: 36415; 36600; 49083; 71045; 74176; 76700; 80048; 80053; 80076; 81001; 82010; 82040; 82042; 82140; 82435; 82803; 82947; 82948; 83605; 83690; 83735; 83880; 84132; 84145; 84157; 84295; 84484; 85018; 85025; 85027; 87040; 87071; 87086; 87205; 87635; 87804; 89051; 93005; 94660; 96365; 96366; 96375; 99291; C1729; G0378; J1644; J1815; J2020; J2185; J2270; J2405; J2470; J2543; J2765; J3490; J7030; J7070; P9046; P9047; J1447

== ENCOUNTER 2024-04-20 20:19 | Inpatient (IN) | payer MEDICARE ==
[~2024-04-20] VITALS: Ht 167.6 cm; Wt 97.7 kg
[~2024-04-20 20:19] MED LIST changes: -AUD IH; +FURO20TA6 PO; -GLIP2.5T2 PO; +NEO/5DRO4 OP; +ONDA-105 PO
--- NOTE | 2024-04-20 21:06 | ERN ---
ED Note History of Present Illness Stated Complaint: LUQ ABDOMINAL PAIN Chief Complaint: Abdominal Pain Time Seen by MD: 20:36 Dictation: This is a 48-year-old male with known metastatic colon CA was discharged yesterday after course of hospitalization for a possible septic shock. He stated that he began experiencing left-sided upper abdominal pain and his abdomen started to distend again and hence he came back to the ER for further evaluation. No fevers chills or rigors. Afebrile blood pressure 104/57 heart rate 100 respiratory rate 16 pulse oximetry 100% on room air His chronic medical problems include colon cancer metastatic status post colostomy, patient undergoing chemotherapy per . , diabetes mellitus, hypertension, hypercholesterolemia. He also has a history of multiple paracentesis and thoracentesis. Allergies: Coded Allergies: No Known Allergies (Unverified Allergy, Unknown, 02/21/24) Home Meds Reported Medications Jameson/Polymyx B Sulf/Dexameth (Maxitrol Eye Drops) 3.5 Mg/Ml-10,000 Unit/Ml-0.1 % Drops.susp, 5 ML OP TID, DROP 04/14/24 Furosemide (Lasix 20Mg Tab) 20 Mg Tablet, 20 MG PO DAILY, TAB 04/14/24 Ondansetron HCl (Ondansetron HCl) 8 Mg Tablet, 8 MG PO Q8H, TAB 04/14/24 Amlodipine Besylate (Amlodipine Besylate) 10 Mg Tablet, 10 MG PO DAILY for 30 Days, #30 TAB 0 Refills 03/18/24 Methocarbamol (Methocarbamol) 500 Mg Tablet, 500 MG PO QIDP PRN for OTHER [SEE ORDER COMMENTS], TAB 02/22/24 Ferrous Sulfate (Ferrous Sulfate) 325 Mg (65 Mg Iron) Tablet, 325 MG PO DAILY, TAB 02/22/24 Cholecalciferol (Vitamin D3) (Vitamin D3) 1,250 Mcg (27049 Unit) Capsule, 1250 MCG PO QWEEK, CAP 02/22/24 Loratadine (Loratadine) 10 Mg Tablet, 10 MG PO DAILY, TAB 02/22/24 Atorvastatin Calcium (Atorvastatin Calcium) 40 Mg Tablet, 40 MG PO DAILY, TAB 02/22/24 Tamsulosin HCl (Flomax) 0.4 Mg Cap.er.24h, 0.4 MG PO DAILY, CAPSULE. 02/22/24 Discontinued Reported Medications Albuterol Sulfate (Albuterol Sulfate) 2.5 Mg/0.5 Ml Vial.neb, 2.5 MG IH Q8H, INH 03/18/24 Glipizide (Glipizide ER) 2.5 Mg Tab.er.24, 2.5 MG PO BID 03/18/24 Past Medical History Past Medical History: Cancer, Diabetes-Type II, Hypertension Surgical History: Other Surgical History Other: COLOSTOMY, R CHEST PORT A CATH Family History: Negative Social History: Lives with family RN Note Reviewed/Agreed w/PFSH: Yes Review of System Dictation Constitutional: Negative for fever,chills, and weight loss Eyes: Negative for injury, pain,redness, and discharge ENT: Negative for injury,pain or swelling Cardiovascular: Negative for chest pain, palpitations, and edema Respiratory: Negative for shortness of breath, cough, and wheezing, Abdomen/GI: Negative for abdominal pain, nausea, vomiting, diarrhea, and constipation Back: Negative for injury and pain : Negative for injury, bleeding and discharge MS/Extremity: Negative for injury and deformity Skin: Negative for rash, and discoloration Neuro: Negative for headache, weakness, numbness, tingling, and seizure Psych: Negative for suicide ideation, homicidal ideation, and hallucinations Initial Vital Sign VS Vital Signs Date Time Temp Pulse Resp B/P (MAP) Pulse Ox O2 Delivery O2 Flow Rate FiO2 04/20/24 20:20 100 16 104/57 100 Room Air 0 04/20/24 21:05 21 Physical Exam Dictation General: awake, alert, very ill-appearing, debilitated male Head/Face: Normocephalic, atraumatic Eyes: PERRL, EOMI, vision at baseline ENT: oral cavity clear, TMs clear, no signs of infection Neck: Trachea midline, supple, no nuchal rigidity Cardiovascular: RRR, normal S1/S2, No MRGs, no JVD Respiratory: Decreased breath sounds at the bases right more than left mild respiratory distress Abdomen: Soft, non-tender, very distended right paraumbilical colostomy stoma, normal bowel sounds, no guarding or rebound. Right lateral abdominal area leak age of ascitic fluid from his previous incision sites for paracentesis Skin: Warm, dry, normal turgor, no rash MS/Extremity: Pulses equal, no cyanosis, neurovascular intact, FROM Neuro: COAx4, GCS 15, strength 5/5, CN 2-12 intact, normal cerebellar exam, normal gait, Psych: Normal behavior, mood, and affect normal Extremities-trace edema without any palpable cords, Homans sign is negative Results (Laboratory/Radiology) Labs Reviewed?: Yes CT Scan Comment: CT ABDOMEN/PELVIS W/O CONTRAST HISTORY: Abdominal distention COMPARISON: CT from 03/18/2024 TECHNIQUE: Multiple sequential axial images of the abdomen and pelvis were obtained from the dome of the diaphragm through symphysis pubis. Patient was not given contrast through intravenous route. Oral contrast was not given. FINDINGS: There are bilateral pleural effusions with compressive atelectasis . There is left lingular pulmonary nodule measuring 18 mm. Degenerative changes of the thoracolumbar spine are present. The heart is not enlarged. Extensive hepatic nodules are seen throughout the liver appears cirrhotic changes of the liver are noted. Liver measures 16.4 cm. Spleen measures 12 cm. Spleen, adrenal glands and pancreas are unremarkable. There is no evidence of hydronephrosis bilaterally. No evidence of renal stone is seen. Fecal material is seen in the colon. There are borderline retroperitoneal and mesenteric lymph nodes. There is ascites. Anasarca. Atherosclerotic changes are present. There appears be soft tissue mass in the region of the ascending colon measuring 8.3 x 7.7 cm with neoplastic process not excluded. There are bilateral inguinal/scrotal hernias with fluid content with right worse than left. Pelvic sidewalls are symmetric bilaterally. Bladder is well distended without wall thickening. IMPRESSION: 1. Extensive hepatic nodules. Hepatosplenomegaly. Bilateral pleural effusions with compressive atelectasis. Left lingular pulmonary nodule. Ascites. Anasarca. Soft tissue mass in the region of the ascending colon measuring 8.3 x 7.7 cm may be related to colon cancer. Clinical correlation is recommended. Borderline retroperitoneal mesenteric adenopathy is seen. Bilateral scrotal hernias with fluid content. CT was performed with one or more following dose reduction techniques: automated exposure control, adjustment of the mA and kv according to patient's size, or use of a iterative reconstruction technique.+ PATIENT: NAPOLEON HOOVER JR MR#: [id number] : 1975 SEX: M AGE: 48 LOCATION: [facility] ORDER 25 STATUS: REG ER REPORT#: [id number] SERVICE 23 REASON: Right Hydropneumothorax, malignant ascites, colon cancer ORDERING PHYSICIAN: RANDI WOODS MD PROCEDURE: CAP WO - CT CHEST/ABD/PELV W/O CONTRAST CT CHEST/ABD/PELV W/O CONTRAST CLINICAL HISTORY: Right Hydropneumothorax, malignant ascites, colon cancer COMPARISON: 03/18/2024 TECHNIQUE: Sequential axial images of the chest abdomen and pelvis without contrast and with sagittal and coronal reconstructions. CT was performed with one or more of the following dose reduction techniques: automated exposure control, adjustment of the mA and/or kV according to patient size, or use of iterative reconstruction technique FINDINGS: There is a large right and moderate left pleural effusion with atelectasis and lingular nodules. There are multiple liver lesions consistent with metastatic disease. Spleen is unremarkable. There is gallbladder calculus. The pancreas adrenal glands kidneys and bladder are unremarkable. There is some moderate ascites with fluid extending into the bilateral inguinal canals and although into the scrotum to the right inguinal canal. There is no identified bowel obstruction. There is gastric distention with no obvious outlet obstruction. There is mild diffuse degenerative changes of the spine. IMPRESSION: Large right and moderate left pleural effusion with atelectasis. There is also a 2 cm lingular lung nodule. Multiple hepatic lesions most consistent with metastatic disease. Moderate ascites. Gastric distention with no identified outlet obstruction. DICTATED BY: JEAN ROSENTHAL DO DATE: 04/20/242158 ELECTRONICALLY SIGNED BY: JEAN ROSENTHAL DO DATE: 04/20/242205 ED Course ED Course Orders Procedure Category Date Status Time Morphine 2mg Syg PHA 04/20/24 Complete (Morphine 2mg Syg) 21:00 Chest 1vw RAD 04/20/24 Resulted 21:00 Us Abdominal US 04/20/24 Logged Paracentesis Ir 21:00 Ct Chest/Abd/Pelv W/O CT 04/20/24 Resulted Contrast 21:24 Cbc With Differential LAB 04/20/24 In Process 22:00 Basic Metabolic Panel LAB 04/20/24 In Process 22:00 Current Medications Medications (Trade) Dose Ordered Sig/Kyrie Route PRN Reason Start Time Stop Time Status Last Admin Dose Admin Morphine Sulfate (morPHINE 2MG SYG) 2 mg ONCE ONCE IVP 04/20/24 21:00 04/20/24 21:01 DC Vital Signs Date Time Temp Pulse Resp B/P (MAP) Pulse Ox O2 Delivery O2 Flow Rate FiO2 04/20/24 21:05 98 18 105/67 98 Room Air* 0 21 04/20/24 20:20 100 16 104/57 100 Room Air 0 We will review diagnostic labs, and administer medications according to the patient's complaint. Once the results are available, will review and personally interpreted the labs to rule out any acute life-threatening emergency the trach require immediate intervention and treatment. I will then re-evaluate the patient after treatment and diagnostic exams have return to determine whether the patient requires any further testing, can safely be discharged home or need further admission to hospital for additional treatment and evaluation. I went over yesterday's labs, chest x-ray findings with the patient and his aunt. In view of increasing abdominal distention and ongoing abdominal pain on the left side, it could be reaccumulating ascitic fluid or possibly small amount of air entering abdominal cavity or chest cavity. Clinically the pleural effusion seemed to have reaccumulated as breath sounds on the right side a markedly reduced with dullness to percussion. Abdominal ultrasound is pending at this time. I explained to them should he need repeat paracentesis or any additional interventions, would need to be admitted and may need platelet transfusion for any procedures. Patient is very agreeable. 8:23 p.m.-spoke to , the admitting physician who indicated that his ascites and pleural effusion do not need any drainage per oncologist. I did not see any records to that effect. And I also was concerned about a pocket of air on the chest x-rays done yesterday and the day before suggestive of a possible loculated hydropneumothorax. He requested to get CT chest and call him back with the results after which he would decide if the patient needs admission 10:37 p.m. updated on the repeat CT chest abdomen and pelvis results which show large right recurrent pleural effusion along with the moderate left pleural effusion and significant gastric distention without any gastric outlet obstruction. Patient also has reaccumulated ascitic fluid. Patient accepted for admission for probable thoracentesis and cancer pain management. Medical Decision Making MDM MDM: Differential diagnosis: Reaccumulation of the malignant ascites and pleural effusion, pain cancer-related with possible peritoneal pain Rationale: Tests considered and ordered secondary to shared decision making include: labs, ECG and radiology Previous outside records reviewed: Old ER visits. Risk of complication and/or morbidity or mortality of patient management: None Medications-Per medication reconciliation Need for hospitalization: Patient does meet criteria for hospitalization. Need for emergency major/minor surgery: No There are no social concerns with this patient. Prescription drug management Prescriptions will include symptomatic care Patient's prior external medical records from other ER visits were reviewed by me as indicated. Prior testing and results from previous visits were reviewed. Prior tests were taken into account with medical decision making and resource utilization, independent historian/historians were used to obtain complete me dical history. I independently interpreted the test that were performed, results were reviewed by me and considered findings on radiology if ordered. Medical management and examination interpretation discussions were had by me with other qualified healthcare professionals as indicated for the patient's care. Problem List Problem List: (1) Ascites, malignant (2) Pancytopenia due to antineoplastic chemotherapy (3) Metastatic colon cancer to liver (4) Abdominal pain, left upper quadrant (5) Colostomy care (6) Pleural effusion, right (7) Pleural effusion, left DX & DISP Disposition: Inpatient Decision to Admit Time: 21:05 Departure Impression: Primary Impression: Abdominal pain, left upper quadrant Additional Impressions: Metastatic colon cancer to liver, Pancytopenia due to antineoplastic chemotherapy, Ascites, malignant Condition: Stable Additional Instructions: Patient was informed of all the diagnostic labs and procedures conducted in the emergency room today and demonstrated understanding of the results. I personally reviewed and interpreted all the diagnostic exams performed in the ER today. The patient will be admitted to the hospital for further treatment and evaluation. Disposition-admit to facility Condition-stable/guarded Course-uncertain at this time Pain status-decreased Assessment-exam unchanged Admission Certification- I certify that the patients status is appropriate and is based on my best clinical judgment and the patient's condition as documented in the medical records Referrals: BETTY PAPPAS (PCP) RANDI WOODS MD Apr 20, 2024 21:06
--- NOTE | 2024-04-20 21:45 | HMCIMG ---
CHEST 1VW CLINICAL HISTORY: malignant pleural effusion Right- evaluate reaccumulation COMPARISON: 04/16/2024 TECHNIQUE: Single view of the chest was obtained. FINDINGS: There is a large right pleural effusion and small left with atelectasis. The cardiac size and mediastinum are unremarkable. The bony structures are within normal limits. The chest port is stable. IMPRESSION: Right greater than left bilateral pleural effusions.
--- NOTE | 2024-04-20 22:06 | HMCIMG ---
CT CHEST/ABD/PELV W/O CONTRAST CLINICAL HISTORY: Right Hydropneumothorax, malignant ascites, colon cancer COMPARISON: 03/18/2024 TECHNIQUE: Sequential axial images of the chest abdomen and pelvis without contrast and with sagittal and coronal reconstructions. CT was performed with one or more of the following dose reduction techniques: automated exposure control, adjustment of the mA and/or kV according to patient size, or use of iterative reconstruction technique FINDINGS: There is a large right and moderate left pleural effusion with atelectasis and lingular nodules. There are multiple liver lesions consistent with metastatic disease. Spleen is unremarkable. There is gallbladder calculus. The pancreas adrenal glands kidneys and bladder are unremarkable. There is some moderate ascites with fluid extending into the bilateral inguinal canals and although into the scrotum to the right inguinal canal. There is no identified bowel obstruction. There is gastric distention with no obvious outlet obstruction. There is mild diffuse degenerative changes of the spine. IMPRESSION: Large right and moderate left pleural effusion with atelectasis. There is also a 2 cm lingular lung nodule. Multiple hepatic lesions most consistent with metastatic disease. Moderate ascites. Gastric distention with no identified outlet obstruction.
[2024-04-20 22:31] LABS: CREATININE 1.7 mg/dL (0.5-1.3); POTASSIUM 4.1 mmol/L (3.5-5.1)
[2024-04-20] MEDS: morPHINE 2 MG SYG IVP ONE (22:53)
[2024-04-20] MEDS ORDERED: acetaMINOPHEN 325 MG TAB PO PRN (23:00)
[2024-04-20] MEDS ORDERED: ondanSETRON ODT 4MG TAB SL PRN (23:00)
[2024-04-20] MEDS: ondanSETRON 4MG INJ IVP ONE (23:05)
[2024-04-20 23:31] LABS: HEMATOCRIT 29.1 % (42-54); IMMATURE GRANULOCYTE ABSOLUTE 0.01 K/uL (0-1); LYMPHOCYTES # (AUTO) 0.5 K/uL (1.0-4.8); LYMPHOCYTES % (AUTO) 85.7 % (21.0-51.0); MEAN CORPUSCULAR HEMOGLOBIN 24.4 pg (27.0-33.0); MEAN CORPUSCULAR VOLUME 76.4 fL (79-99); MONOCYTES % (AUTO) 4.8 % (3.0-13.0); NEUTROPHILS # (AUTO) 0.1 K/uL (1.8-7.7); NEUTROPHILS % (AUTO) 7.9 % (40.0-77.0); PLATELET COUNT (AUTO) 45 K/uL (130-400); RED BLOOD CELL COUNT(AUTO) 3.81 MIL/uL (4.50-6.20); RED CELL DISTRIBUTION WIDTH 19.5 % (11.0-15.5)
[2024-04-20 23:35] LABS: WHITE BLOOD COUNT (AUTO) 0.6 K/uL (4.8-10.8)
[2024-04-21] VITALS (18 sets, daily range): BP systolic 92–112; BP diastolic 53–71; PULSE 64–95; RESP 16–19; TEMP 97.8–98.9; O2SAT 96–99
[2024-04-21] MEDS: INSULIN humuLIN R 100 UNIT/ML 3ML SQ SCH (06:07)
--- NOTE | 2024-04-21 09:44 | HMCIMG ---
US ABDOMINAL PARACENTESIS IR HISTORY: Recurrent malignant ascites COMPARISON: None TECHNIQUE: Informed consent was obtained. Risks and benefits were explained to the patient. A timeout was performed. Patient was prepped and draped in a sterile fashion. Local anesthetics was given as required. Under ultrasound guidance, ascites fluid was localized. Paracentesis was performed. FINDINGS: 4.5 L of yellowish fluid was aspirated. Less than 2 cc blood loss is noted. Patient tolerated procedure without complication. Patient left the department in good condition. IMPRESSION: 1. Uncomplicated ultrasound guidance paracentesis.
[2024-04-21] MEDS: furoSEMIDE 40 MG TABLET PO SCH (09:55)
[2024-04-21] MEDS: SPIRONOLACTONE 25 MG TAB PO SCH (09:55)
[2024-04-21] MEDS: ALBUMIN HUMAN 25% 200 ML IV ONE (09:56)
[2024-04-21 09:59] LABS: INR 1.16 (0.85-1.15); PROTHROMBIN TIME 12.4 SEC (9.6-11.6)
[2024-04-21] MEDS ORDERED: PHARMACY COMMUNICATION 1 EACH EACH MISC SCH (12:30)
[2024-04-21] MEDS: TBO-FILGRASTIM 480 MCG/0.8 ML ML SQ SCH (14:18)
[2024-04-21] MEDS: ZOSYN 3.375GM +NS 50ML IVPB SCH (15:29)
[2024-04-21 18:22] LABS: BODY FLUID RBC 960 /cu. mm.; BODY FLUID WBC 185 /cu. mm.
[2024-04-21 18:23] LABS: APPEARANCE BODY FLUID SLIGHTLY CLOUDY (CLEAR); COLOR,BODY FLUID LT YELLOW (LT YELLOW); SPECIMENTYPE,BODY FLUID ASCITES; TOTAL VOLUME,BODY FLUID 4500 mL
[2024-04-21 18:38] LABS: BF LYMPHOCYTE 84 %; BF MACROPHAGE 10; BF MESOTHELIAL 4 %; BF TOTAL CELLS COUNTED 100
--- NOTE | 2024-04-21 21:00 | CONS ---
[facility] CONSULTATION NOTE Date Patient Seen: Apr 21, 2024 Time of Visit: 20:54 Supervising Physician: AVA DOVE MD Reason for Consultation: [ ] Primary Care Physician: [ ] Outpatient Specialists: [ ] Inpatient Consults: [ ] PROBLEM LIST: - Neutropenic sepsis on admission without shock - Acute kidney injury on admission - Bilateral pleural effusions on admission - Metastatic colon cancer to the liver - Severe protein calorie malnutrition - Adult failure to thrive - Coagulopathy secondary to metastatic liver disease - Pancytopenia - Immunocompromised status HPI: [ 48 years old man recently discharged from hospital Presents with weakness, dyspnea and poor appetite Ruled in for neutropenia with neutropenic sepsis Afebrile, no distress, complains of fatigue, complains of nausea He has dyspnea on exertion and orthopnea We were consulted regarding effusions to both lungs] PAST MEDICAL HX: Metastatic colon cancer to the liver PAST SURGICAL HX: noncontributory SOCIAL HISTORY: No tobacco, ETOH, or illicit drug use Coded Allergies: No Known Allergies (Unverified Allergy, Unknown, 02/21/24) REVIEW OF SYSTEMS: 12 point ROS reviewed with patient. Pertinent positives mentioned above. Otherwise negative. PHYSICAL EXAM: GENERAL: alert, weak, awake oriented x 3 HEENT: EOMI, Sclera non icteric, moist mucosa NECK: Supple, no JVD, trachea midline LUNGS: Decreased breath sounds bilaterally HEART: Regular rate and rhythm. Normal S1 and S2, without murmurs ABD: Abdomen soft, nontender. Bowel sounds present EXT: No clubbing cyanosis or edema NEURO: Alert and oriented to person, follows commands Vital Signs (last 8hr) Date Time Temp Pulse Resp B/P (MAP) Pulse Ox O2 Delivery O2 Flow Rate FiO2 04/21/24 20:00 98.4 83 16 101/61 96 Room Air 04/21/24 16:00 98.1 80 16 102/61 98 04/21/24 15:45 98.1 80 16 102/61 98 04/21/24 14:45 98.8 82 16 96/53 98 04/21/24 13:45 98.2 83 19 95/57 98 LABS: Hematology Labs: Test 04/20/24 22:25 Range/Units White Blood Count 0.6 *L 4.8-10.8 K/uL Red Blood Count 3.81 L 4.50-6.20 MIL/uL Hemoglobin 9.3 L 14.0-18.0 g/dL Hematocrit 29.1 L 42-54 % Mean Corpuscular Volume 76.4 L 79-99 fL Mean Corpuscular Hemoglobin 24.4 L 27.0-33.0 pg Mean Corpuscular Hemoglobin Concent 32.0 32.0-36.0 g/dL Red Cell Distribution Width 19.5 H 11.0-15.5 % Platelet Count 45 #L 130-400 K/uL Mean Platelet Volume 9.1 7.5-10.5 fL Immature Granulocyte % (Auto) 1.6 H 0-1 % Neutrophils (%) (Auto) 7.9 L 40.0-77.0 % Lymphocytes (%) (Auto) 85.7 H 21.0-51.0 % Monocytes (%) (Auto) 4.8 3.0-13.0 % Eosinophils (%) (Auto) 0.0 0.0-8.0 % Basophils (%) (Auto) 0.0 0.0-5.0 % Neutrophils # (Auto) 0.1 L 1.8-7.7 K/uL Lymphocytes # (Auto) 0.5 L 1.0-4.8 K/uL Monocytes # (Auto) 0.0 L 0.1-1.0 K/uL Eosinophils # (Auto) 0.00 0.00-0.70 K/uL Basophils # (Auto) 0.00 0.00-0.20 K/uL Absolute Immature Granulocyte (auto 0.01 0-1 K/uL Nucleated Red Blood Cells 0.0 0.0-0.19 % Chemistry Labs: Test 04/21/24 19:35 04/20/24 22:14 Range/Units Whole Blood Glucose 131 H 70-110 MG/DL Sodium Level 129 L 136-145 mmol/L Potassium Level 4.1 3.5-5.1 mmol/L Chloride Level 97 L 101-111 mmol/L Carbon Dioxide Level 22 21-32 mmol/L Blood Urea Nitrogen 46 H 7-18 mg/dL Creatinine 1.7 H 0.5-1.3 mg/dL Glomerular Filtration Rate Calc 49 >90 mL/min Random Glucose 197 H 70-105 mg/dL Total Calcium 7.9 L 8.5-10.1 mg/dL Coagulation Labs: Test 04/21/24 09:26 Range/Units Prothrombin Time 12.4 H 9.6-11.6 SEC Prothromb Time International Ratio 1.16 H 0.85-1.15 Activated Partial Thromboplast Time 30.0 26.3-35.5 SEC DIAGNOSTICS / RADIOLOGY RESULTS: [ Chest x-ray reviewed. Bilateral small to moderate effusions, right greater than left] PLAN Goals of care to be discussed Discuss advance directives due to poor prognosis Discussed case with infectious and disease, patient is on broad spectrum antibiotics due to high risk of SBP due to recent paracentesis Isolation precautions Patient is not in respiratory distress and is coagulopathic with high risk of bleeding, will monitor effusions and will not attempt thoracentesis due to high risk of complications NEURO: Minimize central acting medications as possible. Maintain fall precautions, adequate lighting during the day PULMONARY: Supplemental 02 as needed. Maintain aspiration precautions at all times CARDIOVASCULAR: Follow hemodynamics. Vital signs per facility protocol GI & NUTRITION: Continue with nutritional support. Continue stool softeners and laxatives as needed. KIDNEYS & ELECTROLYTES: Strict monitoring of intake, output and overall fluid balance. Avoid nephrotoxic medications to the extent possible. Medications to be dosed according to renal function. Monitor electrolytes and replace as needed ENDOCRINE: Maintain blood glucose between 100-180 at all times. Hypoglycemia protocol in place INFECTIOUS DISEASE: Trend temperature, WBC and procalcitonin level Follow cultures, deescalate antibiotics as soon as possible. Panculture if new onset fever ONCOLOGY/HEMATOLOGY/COAGULATION: Monitor for s/s of bleeding Monitor hemoglobin, coagulation studies as needed SKIN: Pressure ulcer prevention per facility protocol Specialty mattress ORTHO/REHAB: Continue PT/OT Prophylaxis: Continue GI and DVT prophylaxis Code Status: Full Resuscitation Disposition: TBD Other: Total patient care time exceeds 35 minutes excluding all procedures. ATTESTATION BY PHYSICIAN The progress note was scribed by Denys Ornelas BSc on my behalf and I attest to the accuracy of the documentation Ava Dove MD I personally scribed for AVA DOVE MD ([email or web address]) on 04/21/24 at 21:00. Electronically submitted by Denys Ornelas ([email or web address]). AVA DOVE MD Apr 21, 2024 21:00
[2024-04-22] VITALS (7 sets, daily range): BP systolic 92–115; BP diastolic 54–65; PULSE 81–99; RESP 18–20; TEMP 97.9–99; O2SAT 99
--- NOTE | 2024-04-22 00:20 | HP ---
HISTORY AND PHYSICAL DATE OF SERVICE: 04/20/2024 PRESENTING COMPLAINT: Abdominal distention and pain. HISTORY OF PRESENT ILLNESS: A 48-year-old male with diabetes mellitus, hypertension, metastatic colon cancer, presented to the hospital with above complaint. The patient was discharged from this facility less than 24 hours ago. He was found to have septic shock, was admitted to ICU. The patient underwent paracentesis about 6000 mL of fluid removed. The patient did well and eventually discharged home. The patient denied cough or shortness of breath. CT of the chest, abdomen and pelvis has been done, shows moderate ascites and bilateral pleural effusion, which is worse on the right side. The patient also found to be neutropenic with WBC of 0.6. Sodium was low at 129. PAST MEDICAL HISTORY: * Metastatic colon cancer. * Malignant ascites. * Pleural effusion. * Hypertension. * Diabetes mellitus. * Obesity. * Dyslipidemia. PAST SURGICAL HISTORY: * Colostomy placement. * Colonoscopy. * EGD. * Multiple paracenteses. * Thoracentesis. * Port-A-Cath placement. ALLERGIES: No known drug allergy. HOME MEDICATIONS: Reviewed. SOCIAL HISTORY: No alcohol, tobacco or illicit drug use. Lives with mother. FAMILY HISTORY: Positive for diabetes mellitus. REVIEW OF SYSTEMS: Greater than 10 systems were reviewed, negative except as documented above. PHYSICAL EXAMINATION: GENERAL: Young male, awake, not in distress. VITAL SIGNS: Temperature 97.9, pulse 97, respiratory rate 18, BP 111/64. EYES: No icterus. Pupils equal and reactive. HENT: No oral thrush seen. Moist oral mucosa. NECK: Supple, no JVD or thyromegaly. LUNGS: Good air entry. No rales, no rhonchi. CARDIOVASCULAR: S1, S2 regular. No murmur heard. ABDOMEN: Distended with ascites. Colostomy functioning well. CENTRAL NERVOUS SYSTEM: Awake, alert, oriented x 3. No focal deficits. SKIN: No rashes, no itchiness. LYMPHATIC: No peripheral lymphadenopathy. BACK: No deformity, no pressure ulcer. HEMATOLOGIC: No bleeding or petechial lesions seen. MUSCULOSKELETAL: No joint swelling, erythema or tenderness. VASCULAR: No ischemia or gangrene of extremities. LABORATORY DATA: Sodium 129, potassium 4.1, BUN 46, creatinine 1.7. WBC 0.6, hemoglobin 9.3, platelet 45. RADIOLOGY: CT of the chest, abdomen and pelvis results reviewed. ASSESSMENT: A 48-year-old male presenting with abdominal distention and pain. CURRENT PROBLEMS: Include: * Metastatic colon cancer. * Malignant ascites. * Bilateral pleural effusion. * Metastatic lung cancer. * Chemotherapy-induced pancytopenia. * Obesity. * Debility. * Underlying immunosuppression. PLAN: * The patient admitted to medical floor. * The patient will be placed on neutropenic precaution. * The patient will be placed on Granix. * Oncology evaluation. * Pulmonary evaluation. * ADA diet. * Insulin sliding scale. * Home medication will be reconciled. Thank you for allowing me to participate in the care of this patient. TID: [id number] RECEIPT: [id number] MTDD
--- NOTE | 2024-04-22 02:32 | PN ---
INFECTIOUS DISEASE FOLLOWUP NOTE DATE OF SERVICE: 04/21/2024 SUBJECTIVE: A young male who is seen today. No fever or chills. Abdominal pain is better. The patient had paracentesis done today with 4 liters removed. The patient was subsequently given albumin. No chest pain. No palpitation or orthopnea. No sore throat or rhinorrhea. The patient to be evaluated by hospice. PHYSICAL EXAMINATION: VITAL SIGNS: Temperature 98.5. EYES: No icterus. Pupils equal and reactive. HENT: No oral thrush seen. Moist oral mucosa. NECK: Supple, no JVD or thyromegaly. LUNGS: Crackles, no rhonchi. Decreased air entry at the bases. ABDOMEN: Distended, ascites. Colostomy functioning well.. CARDIOVASCULAR: S1, S2 regular. No murmur heard. CENTRAL NERVOUS SYSTEM: Awake, alert, oriented x 3. Bedbound debility. No focal deficits. SKIN: No rashes, no itchiness. LYMPHATIC: No peripheral lymphadenopathy. BACK: No deformity, no pressure ulcer. HEMATOLOGIC: No bleeding or petechial lesion seen. ASSESSMENT: A 48-year-old male with multiple problems, which include: * Malignant ascites, status post paracentesis. * Metastatic colon cancer. * Possible peritonitis. * Pleural effusion. * Diabetes mellitus. * Hypertension. * Renal insufficiency. PLAN: * Continue Zosyn. * Continue pain management. * Follow up cultures. * Continue GI prophylaxis. * Continue DVT prophylaxis. * Monitor electrolytes. * The patient to be evaluated by hospice. TID: [id number] RECEIPT: [id number]
[2024-04-22 05:46] LABS: ALBUMIN 2.7 g/dL (3.5-5.0); BILIRUBIN,TOTAL 1.3 mg/dL (0.2-1.0); CREATININE 1.8 mg/dL (0.5-1.3); MAGNESIUM 1.9 mg/dL (1.80-2.40); POTASSIUM 4.2 mmol/L (3.5-5.1); TOTAL PROTEIN, SERUM 4.7 g/dL (6.0-8.3)
[2024-04-22 05:57] LABS: HEMATOCRIT 22.9 % (42-54); MEAN CORPUSCULAR HEMOGLOBIN 24.8 pg (27.0-33.0); MEAN CORPUSCULAR HGB CONC 31.9 g/dL (32.0-36.0); MEAN CORPUSCULAR VOLUME 77.9 fL (79-99); RED BLOOD CELL COUNT(AUTO) 2.94 MIL/uL (4.50-6.20); RED CELL DISTRIBUTION WIDTH 18.8 % (11.0-15.5)
[2024-04-22 06:01] LABS: WHITE BLOOD COUNT (AUTO) 0.6 K/uL (4.8-10.8)
[2024-04-22] MEDS: furoSEMIDE 40MG VIAL IV SCH (09:00)
--- NOTE | 2024-04-22 15:26 | PN ---
INFECTIOUS DISEASE PROGRESS NOTE Date of Service: Apr 22, 2024 SUBJECTIVE: This 48 year old male patient is being seen today at bedside. No fever or chills. No nausea or vomiting. He denies any pain at this time. Denies chest pain or palpitation. Remains on zosyn tolerating well. Colostomy noted. status post paracentesis yesterday. Patient continues to be monitored very closely. PHYSICAL EXAM EYES: Anicteric. Pupils equal and reactive. HENT: No oral thrush seen, moist Oral mucosa NECK: Supple, no JVD or thyromegaly. LUNGS: Good air entry. No rales, no rhonchi. CARDIOVASCULAR: S1, S2 regular. No murmur heard. ABDOMEN: Firm, distended. colostomy functioning well. CENTRAL NERVOUS SYSTEM: Awake, alert, oriented x 3. debility SKIN: No rashes, no swelling. LYMPHATICS: No peripheral lymphadenopathy MUSCULOSKELETAL: No joint swelling, erythema or tenderness. EXTREMITIES: No cyanosis or clubbing BACK: No deformity, no pressure ulcer. GENITOURINARY: No dysuria or hematuria Vital Sign (Last 12 Hours) 04/22/24 04/22/24 04/22/24 03:33 08:33 11:24 Temp 98.4 99.0 98.2 Pulse 99 81 85 Resp 18 19 19 B/P (MAP) 93/54 96/62 115/57 Pulse Ox 97 97 99 O2 Delivery Room Air Room Air Room Air LABS: Laboratory: Test 04/22/24 10:31 04/22/24 05:47 04/22/24 05:15 04/21/24 10:00 Range/Units Whole Blood Glucose 143 H 70-110 MG/DL White Blood Count 0.6 *L 4.8-10.8 K/uL Red Blood Count 2.94 L 4.50-6.20 MIL/uL Hemoglobin 7.3 #L 14.0-18.0 g/dL Hematocrit 22.9 #L 42-54 % Mean Corpuscular Volume 77.9 L 79-99 fL Mean Corpuscular Hemoglobin 24.8 L 27.0-33.0 pg Mean Corpuscular Hemoglobin Concent 31.9 L 32.0-36.0 g/dL Red Cell Distribution Width 18.8 H 11.0-15.5 % Platelet Count 29 #L 130-400 K/uL Mean Platelet Volume 10.0 7.5-10.5 fL Nucleated Red Blood Cells 0.0 0.0-0.19 % Sodium Level 131 L 136-145 mmol/L Potassium Level 4.2 3.5-5.1 mmol/L Chloride Level 99 L 101-111 mmol/L Carbon Dioxide Level 23 21-32 mmol/L Blood Urea Nitrogen 45 H 7-18 mg/dL Creatinine 1.8 H 0.5-1.3 mg/dL Glomerular Filtration Rate Calc 46 >90 mL/min Random Glucose 136 H 70-105 mg/dL Total Calcium 7.8 L 8.5-10.1 mg/dL Magnesium Level 1.90 1.80-2.40 mg/dL Total Bilirubin 1.3 H 0.2-1.0 mg/dL Aspartate Amino Transf (AST/SGOT) 18 10-37 U/L Alanine Aminotransferase (ALT/SGPT) 14 12-78 U/L Alkaline Phosphatase 289 H 50-136 U/L Total Protein 4.7 L 6.0-8.3 g/dL Albumin 2.7 L 3.5-5.0 g/dL Body Fluid Source ASCITES Body Fluid Volume 4500 mL Body Fluid Color LT YELLOW LT YELLOW Body Fluid Supernatant Appearance SLIGHTLY CLOUDY CLEAR Body Fluid WBC 185 /cu. mm. Body Fluid RBC 960 /cu. mm. Body Fluid Neutrophils 2.0 % Body Fluid Lymphocytes 84 % Body Fluid Macrophages (%) 10 Body Fluid Mesothelial Cells (%) 4 % Test 04/21/24 09:26 04/20/24 22:25 Range/Units Prothrombin Time 12.4 H 9.6-11.6 SEC Prothromb Time International Ratio 1.16 H 0.85-1.15 Activated Partial Thromboplast Time 30.0 26.3-35.5 SEC Immature Granulocyte % (Auto) 1.6 H 0-1 % Neutrophils (%) (Auto) 7.9 L 40.0-77.0 % Lymphocytes (%) (Auto) 85.7 H 21.0-51.0 % Monocytes (%) (Auto) 4.8 3.0-13.0 % Eosinophils (%) (Auto) 0.0 0.0-8.0 % Basophils (%) (Auto) 0.0 0.0-5.0 % Neutrophils # (Auto) 0.1 L 1.8-7.7 K/uL Lymphocytes # (Auto) 0.5 L 1.0-4.8 K/uL Monocytes # (Auto) 0.0 L 0.1-1.0 K/uL Eosinophils # (Auto) 0.00 0.00-0.70 K/uL Basophils # (Auto) 0.00 0.00-0.20 K/uL Absolute Immature Granulocyte (auto 0.01 0-1 K/uL ASSESSMENT: This is a 48 year old male patient with current problems which include: * Malignant ascites, status post paracentesis. * Metastatic colon cancer. * Possible peritonitis. * Pleural effusion. * Diabetes mellitus. * Hypertension. * Renal insufficiency. PLAN: * Continue Zosyn. * Continue pain management. * Follow up cultures. * Continue GI prophylaxis. * Continue DVT prophylaxis. * Monitor electrolytes. * continue colostomy care * The patient to be evaluated by hospice. This case been discussed with my supervising physician Dr. vee. The case has been discussed and agreed upon. [facility] Apr 22, 2024 15:26
--- NOTE | 2024-04-22 17:53 | PN ---
[facility] PROGRESS NOTE Date Patient Seen: Apr 22, 2024 Time of Visit: 17:53 Supervising Physician: [Dr. Padilla] Primary Care Physician: [Primary team] Outpatient Specialists: [ ] Inpatient Consults: [BIS] PROBLEM LIST: - Neutropenic sepsis on admission without shock - Acute kidney injury on admission - Bilateral pleural effusions on admission - Metastatic colon cancer to the liver - Severe protein calorie malnutrition - Adult failure to thrive - Coagulopathy secondary to metastatic liver disease - Pancytopenia - Immunocompromised status INTERVAL HISTORY: 48 years old man recently discharged from hospital. Presents with weakness, dyspnea and poor appetite. He was admitted for neutropenia with neutropenic sepsis. Currently afebrile, in no acute distress, complains of fatigue, complains of nausea. He has dyspnea on exertion and orthopnea. We were consulted regarding effusions to both lungs. Patient has colon cancer with metastasis to liver. He is undergoing chemotherapy by Dr. Zhao for the same. The patient has had multiple paracenteses with 7.5L of fluid removed 3 days prior to admission. On admission patient had another 4.5 L removed. He is moderately distended again today. Dr. Zhao was consulted for evaluation and is now recommending hospice, which family is in discussion about. They are still dealing with the reality of his condition d/t recent diagnosis of cancer and the of his brother a few months ago. Questions answered and concerns addressed. REVIEW OF SYSTEMS: 12 point ROS reviewed with patient. Pertinent positives mentioned above. Otherwise negative. PHYSICAL EXAM: GENERAL: alert, weak, awake oriented x 3 HEENT: EOMI, Sclera non icteric, moist mucosa NECK: Supple, no JVD, trachea midline LUNGS: Decreased breath sounds bilaterally HEART: Regular rate and rhythm. Normal S1 and S2, without murmurs ABD: Abdomen soft, nontender. Bowel sounds present EXT: No clubbing cyanosis or edema NEURO: Alert and oriented to person, follows commands Vital Signs (last 8hr) Date Time Temp Pulse Resp B/P (MAP) Pulse Ox O2 Delivery O2 Flow Rate FiO2 04/22/24 16:29 98.6 86 19 92/56 99 Room Air 04/22/24 11:24 98.2 85 19 115/57 99 Room Air LABS: Hematology Labs: Test 04/22/24 05:47 04/20/24 22:25 Range/Units White Blood Count 0.6 *L 4.8-10.8 K/uL Red Blood Count 2.94 L 4.50-6.20 MIL/uL Hemoglobin 7.3 #L 14.0-18.0 g/dL Hematocrit 22.9 #L 42-54 % Mean Corpuscular Volume 77.9 L 79-99 fL Mean Corpuscular Hemoglobin 24.8 L 27.0-33.0 pg Mean Corpuscular Hemoglobin Concent 31.9 L 32.0-36.0 g/dL Red Cell Distribution Width 18.8 H 11.0-15.5 % Platelet Count 29 #L 130-400 K/uL Mean Platelet Volume 10.0 7.5-10.5 fL Nucleated Red Blood Cells 0.0 0.0-0.19 % Immature Granulocyte % (Auto) 1.6 H 0-1 % Neutrophils (%) (Auto) 7.9 L 40.0-77.0 % Lymphocytes (%) (Auto) 85.7 H 21.0-51.0 % Monocytes (%) (Auto) 4.8 3.0-13.0 % Eosinophils (%) (Auto) 0.0 0.0-8.0 % Basophils (%) (Auto) 0.0 0.0-5.0 % Neutrophils # (Auto) 0.1 L 1.8-7.7 K/uL Lymphocytes # (Auto) 0.5 L 1.0-4.8 K/uL Monocytes # (Auto) 0.0 L 0.1-1.0 K/uL Eosinophils # (Auto) 0.00 0.00-0.70 K/uL Basophils # (Auto) 0.00 0.00-0.20 K/uL Absolute Immature Granulocyte (auto 0.01 0-1 K/uL Chemistry Labs: Test 04/22/24 15:59 04/22/24 05:15 Range/Units Whole Blood Glucose 156 H 70-110 MG/DL Sodium Level 131 L 136-145 mmol/L Potassium Level 4.2 3.5-5.1 mmol/L Chloride Level 99 L 101-111 mmol/L Carbon Dioxide Level 23 21-32 mmol/L Blood Urea Nitrogen 45 H 7-18 mg/dL Creatinine 1.8 H 0.5-1.3 mg/dL Glomerular Filtration Rate Calc 46 >90 mL/min Random Glucose 136 H 70-105 mg/dL Total Calcium 7.8 L 8.5-10.1 mg/dL Magnesium Level 1.90 1.80-2.40 mg/dL Total Bilirubin 1.3 H 0.2-1.0 mg/dL Aspartate Amino Transf (AST/SGOT) 18 10-37 U/L Alanine Aminotransferase (ALT/SGPT) 14 12-78 U/L Alkaline Phosphatase 289 H 50-136 U/L Total Protein 4.7 L 6.0-8.3 g/dL Albumin 2.7 L 3.5-5.0 g/dL Coagulation Labs: Test 04/21/24 09:26 Range/Units Prothrombin Time 12.4 H 9.6-11.6 SEC Prothromb Time International Ratio 1.16 H 0.85-1.15 Activated Partial Thromboplast Time 30.0 26.3-35.5 SEC DIAGNOSTICS / RADIOLOGY RESULTS: CT CHEST/ABD/PELV W/O CONTRAST CLINICAL HISTORY: Right Hydropneumothorax, malignant ascites, colon cancer COMPARISON: 03/18/2024 TECHNIQUE: Sequential axial images of the chest abdomen and pelvis without contrast and with sagittal and coronal reconstructions. CT was performed with one or more of the following dose reduction techniques: automated exposure control, adjustment of the mA and/or kV according to patient size, or use of iterative reconstruction technique FINDINGS: There is a large right and moderate left pleural effusion with atelectasis and lingular nodules. There are multiple liver lesions consistent with metastatic disease. Spleen is unremarkable. There is gallbladder calculus. The pancreas adrenal glands kidneys and bladder are unremarkable. There is some moderate ascites with fluid extending into the bilateral inguinal canals and although into the scrotum to the right inguinal canal. There is no identified bowel obstruction. There is gastric distention with no obvious outlet obstruction. There is mild diffuse degenerative changes of the spine. IMPRESSION: Large right and moderate left pleural effusion with atelectasis. There is also a 2 cm lingular lung nodule. Multiple hepatic lesions most consistent with metastatic disease. Moderate ascites. Gastric distention with no identified outlet obstruction. PLAN Goals of care to be discussed Discuss advance directives due to poor prognosis Dr Dove discussed case with infectious and disease, patient is on broad spectrum antibiotics due to high risk of SBP due to recent paracentesis Isolation precautions Pancytopenia Patient is not in respiratory distress and is coagulopathic with high risk of bleeding, will monitor effusions and will not attempt thoracentesis due to high risk of complications NEURO: Minimize central acting medications as possible. Maintain fall precautions, adequate lighting during the day PULMONARY: Supplemental 02 as needed. Maintain aspiration precautions at all times CARDIOVASCULAR: Follow hemodynamics. Vital signs per facility protocol GI & NUTRITION: Continue with nutritional support. Continue stool softeners and laxatives as needed. KIDNEYS & ELECTROLYTES: Strict monitoring of intake, output and overall fluid balance. Avoid nephrotoxic medications to the extent possible. Medications to be dosed according to renal function. Monitor electrolytes and replace as needed ENDOCRINE: Maintain blood glucose between 100-180 at all times. Hypoglycemia protocol in place INFECTIOUS DISEASE: Trend temperature, WBC and procalcitonin level Follow cultures, deescalate antibiotics as soon as possible. Panculture if new onset fever ONCOLOGY/HEMATOLOGY/COAGULATION: Monitor for s/s of bleeding Monitor hemoglobin, coagulation studies as needed SKIN: Pressure ulcer prevention per facility protocol Specialty mattress ORTHO/REHAB: Continue PT/OT Prophylaxis: Continue GI and DVT prophylaxis Code Status: Full Resuscitation Disposition: TBD Other: Total patient care time exceeds 35 minutes excluding all procedures. ATTESTATION BY PHYSICIAN I attest that I reviewed and discussed the case with the Physician Manager Hydraulic as well as agree with the Physician Manager Hydraulic's findings, plans of care, and documentation above. Chaitanya Joe MD, MARCUS A PA Apr 22, 2024 17:53
[2024-04-23] VITALS (7 sets, daily range): BP systolic 90–107; BP diastolic 54–67; PULSE 85–96; RESP 16–20; TEMP 98.2–98.8; O2SAT 99
[2024-04-23 05:13] LABS: HEMATOCRIT 25.3 % (42-54); MEAN CORPUSCULAR HEMOGLOBIN 24.6 pg (27.0-33.0); MEAN CORPUSCULAR HGB CONC 32.4 g/dL (32.0-36.0); RED BLOOD CELL COUNT(AUTO) 3.33 MIL/uL (4.50-6.20); RED CELL DISTRIBUTION WIDTH 18.5 % (11.0-15.5)
[2024-04-23 05:27] LABS: CREATININE 2.1 mg/dL (0.5-1.3); MAGNESIUM 1.8 mg/dL (1.80-2.40); POTASSIUM 3.8 mmol/L (3.5-5.1)
--- NOTE | 2024-04-23 11:10 | PN ---
[facility] PROGRESS NOTE Date Patient Seen: Apr 23, 2024 Time of Visit: 11:06 Supervising Physician: [Dr. Padilla] Primary Care Physician: [Primary team] Outpatient Specialists: [ ] Inpatient Consults: [BIS] PROBLEM LIST: Neutropenic sepsis on admission without shock Acute kidney injury on admission Bilateral pleural effusions on admission Metastatic colon cancer to the liver Severe protein calorie malnutrition Adult failure to thrive Coagulopathy secondary to metastatic liver disease Pancytopenia Immunocompromised status INTERVAL HISTORY: 48 years old man recently discharged from hospital. Presents with weakness, dyspnea and poor appetite. He was admitted for neutropenia with neutropenic sepsis. Currently afebrile, in no acute distress, complains of fatigue, complains of nausea. He has dyspnea on exertion and orthopnea. We were consulted regarding effusions to both lungs. Patient has colon cancer with metastasis to liver. He is undergoing chemotherapy by Dr. Zhao for the same. The patient has had multiple paracenteses with 7.5L of fluid removed 3 days prior to admission. On admission patient had another 4.5 L removed. He is moderately distended again today. Dr. Zhao was consulted for evaluation and is now recommending hospice, which family is in discussion about. They are still dealing with the reality of his condition d/t recent diagnosis of cancer and the of his brother a few months ago. Questions answered and concerns addressed. 04/23 blood pressure is 95/58 with a heart rate of 87, afebrile on room air. Mcintosh s 500 mL of urine output overnight. Continues with Lasix and spironolactone as blood pressure permits. Continues on Zosyn for empiric coverage. WBC remains decreased at 1, hemoglobin is 8, platelets are 31. BMP shows persistent hyponatremia at 131, worsened creatinine at 2.1. Patient has been referred to hospice. Will continue current management pending acceptance. REVIEW OF SYSTEMS: 12 point ROS reviewed with patient. Pertinent positives mentioned above. Otherwise negative. PHYSICAL EXAM: GENERAL: alert, weak, awake oriented x 3 HEENT: EOMI, Sclera non icteric, moist mucosa NECK: Supple, no JVD, trachea midline LUNGS: Decreased breath sounds bilaterally HEART: Regular rate and rhythm. Normal S1 and S2, without murmurs ABD: Abdomen soft, nontender. Bowel sounds present EXT: No clubbing cyanosis or edema NEURO: Alert and oriented to person, follows commands Vital Signs (last 8hr) Date Time Temp Pulse Resp B/P (MAP) Pulse Ox O2 Delivery O2 Flow Rate FiO2 04/23/24 08:29 98.4 87 19 95/58 98 04/23/24 04:00 98.6 85 18 90/55 98 Room Air LABS: Hematology Labs: Test 04/23/24 05:07 Range/Units White Blood Count 1.0 #*L 4.8-10.8 K/uL Red Blood Count 3.33 L 4.50-6.20 MIL/uL Hemoglobin 8.2 L 14.0-18.0 g/dL Hematocrit 25.3 L 42-54 % Mean Corpuscular Volume 76.0 L 79-99 fL Mean Corpuscular Hemoglobin 24.6 L 27.0-33.0 pg Mean Corpuscular Hemoglobin Concent 32.4 32.0-36.0 g/dL Red Cell Distribution Width 18.5 H 11.0-15.5 % Platelet Count 31 L 130-400 K/uL Mean Platelet Volume 10.2 7.5-10.5 fL Nucleated Red Blood Cells 0.0 0.0-0.19 % Chemistry Labs: Test 04/23/24 05:07 04/23/24 04:54 04/22/24 05:15 Range/Units Sodium Level 131 L 136-145 mmol/L Potassium Level 3.8 3.5-5.1 mmol/L Chloride Level 98 L 101-111 mmol/L Carbon Dioxide Level 21 21-32 mmol/L Blood Urea Nitrogen 45 H 7-18 mg/dL Creatinine 2.1 H 0.5-1.3 mg/dL Glomerular Filtration Rate Calc 38 >90 mL/min Random Glucose 138 H 70-105 mg/dL Total Calcium 7.9 L 8.5-10.1 mg/dL Magnesium Level 1.80 1.80-2.40 mg/dL Whole Blood Glucose 130 H 70-110 MG/DL Total Bilirubin 1.3 H 0.2-1.0 mg/dL Aspartate Amino Transf (AST/SGOT) 18 10-37 U/L Alanine Aminotransferase (ALT/SGPT) 14 12-78 U/L Alkaline Phosphatase 289 H 50-136 U/L Total Protein 4.7 L 6.0-8.3 g/dL Albumin 2.7 L 3.5-5.0 g/dL DIAGNOSTICS / RADIOLOGY RESULTS: [ ] PLAN Start Midodrine 10mg Q8H Diuretics as blood pressure allows Goals of care to be discussed Discuss advance directives due to poor prognosis Isolation precautions Pancytopenia Patient is not in respiratory distress and is coagulopathic with high risk of bleeding, will monitor effusions and will not attempt thoracentesis due to high risk of complications NEURO: Minimize central acting medications as possible. Maintain fall precautions, adequate lighting during the day PULMONARY: Supplemental 02 as needed. Maintain aspiration precautions at all times CARDIOVASCULAR: Follow hemodynamics. Vital signs per facility protocol GI & NUTRITION: Continue with nutritional support. Continue stool softeners and laxatives as needed. KIDNEYS & ELECTROLYTES: Strict monitoring of intake, output and overall fluid balance. Avoid nephrotoxic medications to the extent possible. Medications to be dosed according to renal function. Monitor electrolytes and replace as needed ENDOCRINE: Maintain blood glucose between 100-180 at all times. Hypoglycemia protocol in place INFECTIOUS DISEASE: Trend temperature, WBC and procalcitonin level Follow cultures, deescalate antibiotics as soon as possible. Panculture if new onset fever ONCOLOGY/HEMATOLOGY/COAGULATION: Monitor for s/s of bleeding Monitor hemoglobin, coagulation studies as needed SKIN: Pressure ulcer prevention per facility protocol Specialty mattress ORTHO/REHAB: Continue PT/OT Prophylaxis: Continue GI and DVT prophylaxis Code Status: Full Resuscitation Disposition: TBD Other: Total patient care time exceeds 52 minutes excluding all procedures. ATTESTATION BY PHYSICIAN I attest that I reviewed and discussed the case with the Physician Graphite Mill Operator as well as agree with the Physician Graphite Mill Operator's findings, plans of care, and documentation above. Chaitanya Joe MD, MARCUS A PA Apr 23, 2024 11:10
[2024-04-23] MEDS: miDODRine HCL 5 MG TABLET PO SCH (21:41)
[2024-04-24] VITALS (14 sets, daily range): BP systolic 91–105; BP diastolic 48–61; PULSE 72–94; RESP 16–20; TEMP 97.4–98.7; O2SAT 99–100
[2024-04-24] MEDS: ALBUMIN HUMAN 25% 200 ML IV ONE (11:30)
--- NOTE | 2024-04-24 12:15 | PN ---
[facility] PROGRESS NOTE Date Patient Seen: Apr 24, 2024 Time of Visit: 12:07 Supervising Physician: [Dr. Farias] Primary Care Physician: [Primary team] Outpatient Specialists: [ ] Inpatient Consults: [BIS] PROBLEM LIST: Neutropenic sepsis on admission without shock Recurrent ascities in setting of colon cancer with mets to liver s/p paracentesis 04/24 by IR with 4.9L fluid removed Acute kidney injury on admission, decompensated Bilateral pleural effusions on admission, not a candidate for thora Hepatorenal syndrome Metastatic colon cancer to the liver Severe protein calorie malnutrition Adult failure to thrive Coagulopathy secondary to metastatic liver disease Pancytopenia Immunocompromised status INTERVAL HISTORY: 48 years old man recently discharged from hospital. Presents w ith weakness, dyspnea and poor appetite. He was admitted for neutropenia with neutropenic sepsis. Currently afebrile, in no acute distress, complains of fatigue, complains of nausea. He has dyspnea on exertion and orthopnea. We were consulted regarding effusions to both lungs. Patient has colon cancer with metastasis to liver. He is undergoing chemotherapy by Dr. Zhao for the same. The patient has had multiple paracenteses with 7.5L of fluid removed 3 days prior to admission. On admission patient had another 4.5 L removed. He is moderately distended again today. Dr. Zhao was consulted for evaluation and is now recommending hospice, which family is in discussion about. They are still dealing with the reality of his condition d/t recent diagnosis of cancer and the of his brother a few months ago. Questions answered and concerns addressed. 04/23 blood pressure is 95/58 with a heart rate of 87, afebrile on room air. Has 500 mL of urine output overnight. Continues with Lasix and spironolactone as blood pressure permits. Continues on Zosyn for empiric coverage. WBC remains decreased at 1, hemoglobin is 8, platelets are 31. BMP shows persistent hyponatremia at 131, worsened creatinine at 2.1. Patient has been referred to hospice. Will continue current management pending acceptance. 04/24 blood pressure is 102/54 with a heart rate of 91, afebrile on room air. Has 300 mL of documented urine output overnight. He did have a paracentesis this morning with 4.9 L of ascitic fluid removed. Was given a dose of albumin. He continues on midodrine, Lasix, spironolactone and Zosyn. Prior ascitic fluid study is negative for infection. Patient is recommended for hospice, pending eval. REVIEW OF SYSTEMS: 12 point ROS reviewed with patient. Pertinent positives mentioned above. Otherwise negative. PHYSICAL EXAM: GENERAL: alert, weak, awake oriented x 3 HEENT: EOMI, Sclera non icteric, moist mucosa NECK: Supple, no JVD, trachea midline LUNGS: Decreased breath sounds bilaterally HEART: Regular rate and rhythm. Normal S1 and S2, without murmurs ABD: Abdomen soft, nontender. Bowel sounds present EXT: No clubbing cyanosis or edema NEURO: Alert and oriented to person, follows commands Vital Signs (last 8hr) Date Time Temp Pulse Resp B/P (MAP) Pulse Ox O2 Delivery O2 Flow Rate FiO2 04/24/24 08:24 98.6 91 18 102/54 98 Room Air LABS: Hematology Labs: Test 04/23/24 05:07 Range/Units White Blood Count 1.0 #*L 4.8-10.8 K/uL Red Blood Count 3.33 L 4.50-6.20 MIL/uL Hemoglobin 8.2 L 14.0-18.0 g/dL Hematocrit 25.3 L 42-54 % Mean Corpuscular Volume 76.0 L 79-99 fL Mean Corpuscular Hemoglobin 24.6 L 27.0-33.0 pg Mean Corpuscular Hemoglobin Concent 32.4 32.0-36.0 g/dL Red Cell Distribution Width 18.5 H 11.0-15.5 % Platelet Count 31 L 130-400 K/uL Mean Platelet Volume 10.2 7.5-10.5 fL Nucleated Red Blood Cells 0.0 0.0-0.19 % Chemistry Labs: Test 04/24/24 05:13 04/23/24 05:07 Range/Units Whole Blood Glucose 140 H 70-110 MG/DL Sodium Level 131 L 136-145 mmol/L Potassium Level 3.8 3.5-5.1 mmol/L Chloride Level 98 L 101-111 mmol/L Carbon Dioxide Level 21 21-32 mmol/L Blood Urea Nitrogen 45 H 7-18 mg/dL Creatinine 2.1 H 0.5-1.3 mg/dL Glomerular Filtration Rate Calc 38 >90 mL/min Random Glucose 138 H 70-105 mg/dL Total Calcium 7.9 L 8.5-10.1 mg/dL Magnesium Level 1.80 1.80-2.40 mg/dL DIAGNOSTICS / RADIOLOGY RESULTS: Reviewed PLAN Continue Midodrine 10mg Q8H Diuretics as blood pressure allows Goals of care to be discussed Discuss advance directives due to poor prognosis Isolation precautions Pancytopenia No plans for thoracentesis at this time Patient is not in respiratory distress and is coagulopathic with high risk of bleeding, will monitor effusions and will not attempt thoracentesis due to high risk of complications NEURO: Minimize central acting medications as possible. Maintain fall precautions, adequate lighting during the day PULMONARY: Supplemental 02 as needed. Maintain aspiration precautions at all times CARDIOVASCULAR: Follow hemodynamics. Vital signs per facility protocol GI & NUTRITION: Continue with nutritional support. Continue stool softeners and laxatives as needed. KIDNEYS & ELECTROLYTES: Strict monitoring of intake, output and overall fluid balance. Avoid nephrotoxic medications to the extent possible. Medications to be dosed according to renal function. Monitor electrolytes and replace as needed ENDOCRINE: Maintain blood glucose between 100-180 at all times. Hypoglycemia protocol in place INFECTIOUS DISEASE: Trend temperature, WBC and procalcitonin level Follow cultures, deescalate antibiotics as soon as possible. Panculture if new onset fever ONCOLOGY/HEMATOLOGY/COAGULATION: Monitor for s/s of bleeding Monitor hemoglobin, coagulation studies as needed SKIN: Pressure ulcer prevention per facility protocol Specialty mattress ORTHO/REHAB: Continue PT/OT Prophylaxis: Continue GI and DVT prophylaxis Code Status: Full Resuscitation Disposition: TBD Other: Total patient care time exceeds 52 minutes excluding all procedures. ATTESTATION BY PHYSICIAN I attest that I reviewed and discussed the case with the Physician Bank Representative as well as agree with the Physician Bank Representative's findings, plans of care, and documentation above. Chaitanya Joe MD, MARCUS A PA Apr 24, 2024 12:15
--- NOTE | 2024-04-24 12:31 | PN ---
INFECTIOUS DISEASE PROGRESS NOTE Date of Service: Apr 24, 2024 SUBJECTIVE: This 48 year old male patient who was seen and examined at bedside in room 328. Patient is awake, alert and oriented x 3. Patient is status post ultrasound- guided paracentesis by IR this morning and 4.9 L removed. Albumin being given. Continues on Aldactone and furosemide. No reports of fever or chills, temperature is 98.6. Colostomy bag having good output. Denies chest pain or palpitation. Continues on zosyn and no reports of nausea or vomiting. We will continue to follow patient's care. PHYSICAL EXAM EYES: Anicteric. Pupils equal and reactive. HENT: No oral thrush seen, moist Oral mucosa NECK: Supple, no JVD or thyromegaly. LUNGS: Good air entry. No rales, no rhonchi. CARDIOVASCULAR: S1, S2 regular. No murmur heard. ABDOMEN: Firm, distended. colostomy functioning well. CENTRAL NERVOUS SYSTEM: Awake, alert, oriented x 3. debility SKIN: No rashes, no swelling. LYMPHATICS: No peripheral lymphadenopathy MUSCULOSKELETAL: No joint swelling, erythema or tenderness. EXTREMITIES: No cyanosis or clubbing BACK: No deformity, no pressure ulcer. GENITOURINARY: No dysuria or hematuria Vital Sign (Last 12 Hours) 04/24/24 04/24/24 04/24/24 04:00 08:24 12:10 Temp 98.4 98.6 Pulse 90 91 72 Resp 20 18 18 B/P (MAP) 105/61 102/54 Pulse Ox 98 98 O2 Delivery Room Air Room Air FiO2 30 Intake & Output (last 24hrs) 04/23/24 04/23/24 04/24/24 15:00 23:00 07:00 Output Total 300 ml Balance -300 ml LABS: Laboratory: Test 04/24/24 05:13 04/23/24 05:07 Range/Units Whole Blood Glucose 140 H 70-110 MG/DL White Blood Count 1.0 #*L 4.8-10.8 K/uL Red Blood Count 3.33 L 4.50-6.20 MIL/uL Hemoglobin 8.2 L 14.0-18.0 g/dL Hematocrit 25.3 L 42-54 % Mean Corpuscular Volume 76.0 L 79-99 fL Mean Corpuscular Hemoglobin 24.6 L 27.0-33.0 pg Mean Corpuscular Hemoglobin Concent 32.4 32.0-36.0 g/dL Red Cell Distribution Width 18.5 H 11.0-15.5 % Platelet Count 31 L 130-400 K/uL Mean Platelet Volume 10.2 7.5-10.5 fL Nucleated Red Blood Cells 0.0 0.0-0.19 % Sodium Level 131 L 136-145 mmol/L Potassium Level 3.8 3.5-5.1 mmol/L Chloride Level 98 L 101-111 mmol/L Carbon Dioxide Level 21 21-32 mmol/L Blood Urea Nitrogen 45 H 7-18 mg/dL Creatinine 2.1 H 0.5-1.3 mg/dL Glomerular Filtration Rate Calc 38 >90 mL/min Random Glucose 138 H 70-105 mg/dL Total Calcium 7.9 L 8.5-10.1 mg/dL Magnesium Level 1.80 1.80-2.40 mg/dL ASSESSMENT: Abdominal pain. Metastatic colon cancer. Malignant ascites, status post paracentesis with 4.5 L removed today. Possible peritonitis. Pancytopenia. Bilateral Pleural effusion. Diabetes mellitus. Hypertension. Renal insufficiency. PLAN: Start Granix 300 mcg daily as recommended by Dr. Tiffany emerson. Obtain CBC daily. Continue Zosyn. Continue pain management. Will Follow up on the cultures. Continue GI prophylaxis. Will Monitor electrolytes. Continue colostomy care. Continue on Reverse isolation. This case was reviewed and discussed with my supervising physician and the above assessment and plan was formulated and agreed upon. ATTESTATION BY PHYSICIAN I have seen and examined the patient. I reviewed the documentation, medical decision making, and treatment plan as noted by the mid-level provider above. I agree with the findings and plan of care. CORI SHAW MD, MIRTA L PATIENT RELATIONS SPECIALIST Apr 24, 2024 12:31
[2024-04-24] MEDS: TBO-FILGRASTIM 300 MCG/0.5 ML ML SQ SCH (13:00)
--- NOTE | 2024-04-24 14:00 | PN ---
A 48-year-old male with diabetes mellitus, hypertension, metastatic colon cancer, presented to the hospital with above complaint. The patient was discharged from this facility less than 24 hours ago. He was found to have septic shock, was admitted to ICU. The patient underwent paracentesis about 6000 mL of fluid removed. The patient did well and eventually discharged home. Patient received his first chemotherapy treatment. But the patient deteriorated significantly with the patient have severe failure to thrive. PAST MEDICAL HISTORY: * Metastatic colon cancer. * Malignant ascites. * Pleural effusion. * Hypertension. * Diabetes mellitus. * Obesity. * Dyslipidemia. PAST SURGICAL HISTORY: * Colostomy placement. * Colonoscopy. * EGD. * Multiple paracenteses. * Thoracentesis. * Port-A-Cath placement. ALLERGIES: No known drug allergy. HOME MEDICATIONS: Reviewed. SOCIAL HISTORY: No alcohol, tobacco or illicit drug use. Lives with mother. FAMILY HISTORY: Positive for diabetes mellitus. REVIEW OF SYSTEMS: Greater than 10 systems were reviewed, negative except as documented above. PHYSICAL EXAMINATION: GENERAL: Young male, awake, not in distress. VITAL SIGNS: Temperature 97.9, pulse 97, respiratory rate 18, BP 111/64. EYES: No icterus. Pupils equal and reactive. HENT: No oral thrush seen. Moist oral mucosa. NECK: Supple, no JVD or thyromegaly. LUNGS: Good air entry. No rales, no rhonchi. CARDIOVASCULAR: S1, S2 regular. No murmur heard. ABDOMEN: Distended with ascites. Colostomy functioning well. CENTRAL NERVOUS SYSTEM: Awake, alert, oriented x 3. No focal deficits. SKIN: No rashes, no itchiness. LYMPHATIC: No peripheral lymphadenopathy. BACK: No deformity, no pressure ulcer. HEMATOLOGIC: No bleeding or petechial lesions seen. MUSCULOSKELETAL: No joint swelling, erythema or tenderness. VASCULAR: No ischemia or gangrene of extremities. ASSESSMENT: * Metastatic colon cancer. * Malignant ascites. * Bilateral pleural effusion. * Metastatic lung cancer. * Chemotherapy-induced pancytopenia. * Obesity. * Debility. * Underlying immunosuppression. Plan 1. This patient has significant failure to thrive with the patient I think he is good candidate for hospice 2. Chemo induced neutropenia with the patient will need to Granix 3. If the patient and family agree on hospice then we will stop labs or vital otherwise we have to continue antibiotic treatment and transfusion as needed. 4. I will evaluate this patient tomorrow and then talk to him and his family. If he agrees on hospice then he could be discharged home with hospice Vitals/Labs Vital Signs Date Time Temp Pulse Resp B/P (MAP) Pulse Ox O2 Delivery O2 Flow Rate FiO2 04/24/24 12:10 72 18 30 04/24/24 08:24 98.6 102/54 98 Room Air 04/23/24 08:00 0 Medications Current Medications Morphine Sulfate 2 mg ONCE ONCE IVP Last administered on 04/20/24at 22:53; Start 04/20/24 at 21:00; Stop 04/20/24 at 21:01; Status DC Acetaminophen 650 mg Q4H PRN PO; Start 04/20/24 at 23:00; Stop 05/20/24 at 22:59 Ondansetron HCl 4 mg Q6H PRN SL; Start 04/20/24 at 23:00; Stop 05/20/24 at 22:59 Insulin Human Regular INSULIN SLIDING SCAL... ACHS SQ; Start 04/21/24 at 07:30; Stop 05/21/24 at 07:29 Furosemide 40 mg DAILY PO Last administered on 04/21/24at 09:55; Start 04/21/24 at 09:00; Stop 04/21/24 at 13:58; Status DC Spironolactone 25 mg DAILY PO Last administered on 04/24/24at 09:53; Start 04/21/24 at 09:00; Stop 05/21/24 at 08:59 Ondansetron HCl 4 mg ONCE ONCE IVP Last administered on 04/20/24at 23:05; Start 04/20/24 at 23:30; Stop 04/20/24 at 23:31; Status DC Albumin Human 200 ml @ 0 mls/hr AD ONCE IV Last administered on 04/21/24at 09:56; Start 04/21/24 at 10:00; Stop 04/21/24 at 10:01; Status DC Pharmacy Profile Note 1 each AD MISC; Start 04/21/24 at 12:30; Stop 04/28/24 at 12:29 Furosemide 40 mg DAILY IV Last administered on 04/24/24at 09:52; Start 04/22/24 at 09:00; Stop 05/22/24 at 08:59 Piperacillin Sod/ Tazobactam Sod 3.375 gm Q8H IVPB Last administered on 04/24/24at 06:36; Start 04/21/24 at 15:00; Stop 05/01/24 at 14:59 Midodrine 10 mg TID PO Last administered on 04/24/24at 09:53; Start 04/23/24 at 21:00; Stop 05/23/24 at 20:59 Albumin Human 200 ml @ 0 mls/hr AD ONCE IV; Start 04/24/24 at 11:30; Stop 04/24/24 at 11:37; Status DC CRISTIAN CRANE MD Apr 24, 2024 14:00
--- NOTE | 2024-04-24 15:20 | HMCIMG ---
US ABDOMINAL PARACENTESIS IR REASON: ASCITES TECHNIQUE: Paracentesis was performed with ultrasound guidance. The puncture site was selected in the Right lower quadrant and overlying skin prepped and draped in a sterile fashion. 1% Xylocaine infiltration was performed. Catheter was placed in the fluid using trocar technique. 4.9 cm were removed. Fluid sample was submitted for laboratory evaluation. The patient showed no evidence of complication during the procedure. IMPRESSION: 1. Ultrasound-guided paracentesis.
[2024-04-24 15:30] LABS: ABG HCO3 19.6 mmol/L (21.0-28.0); ABG OXYGEN SATURATION 98.7 % (94.0-98.0); ABG PCO2 29 mmHg (35-48); DEVICE COMMENT TANYA RF; PO2, ARTERIAL BG 128.3 mmHg (83.0-108.0)
[2024-04-24] MEDS: BALSAM PERU/CASTOR OIL 60 GM TUBE TP SCH (21:00)
--- NOTE | 2024-04-24 22:10 | PN ---
INFECTIOUS DISEASE FOLLOWUP NOTE DATE OF SERVICE: 04/23/2024 SUBJECTIVE: The patient is seen and examined at bedside today. The patient has no fever, no chills. No nausea or vomiting. Tolerating orally. He is unable to tolerate physical therapy. No rashes or itchiness. No palpitation or orthopnea. No depression. No suicidal ideation. PHYSICAL EXAMINATION: VITAL SIGNS: Temperature 97.5. EYES: No icterus. Pupils equal and reactive. HENT: No oral thrush seen. Moist oral mucosa. NECK: Supple, no JVD or thyromegaly. LUNGS: Good air entry. No rales, no rhonchi. CARDIOVASCULAR: S1, S2 regular. No murmur heard. ABDOMEN: Distended, soft. There is ascites. Colostomy is functioning well. CENTRAL NERVOUS SYSTEM: Awake, alert and oriented x 3. No focal deficits. SKIN: No rashes, no itchiness. LYMPHATIC: No peripheral lymphadenopathy. BACK: No deformity, no pressure ulcer. LABORATORY DATA: WBC 1.0, hemoglobin 8.6, platelet 31. ASSESSMENT: A 48-year-old male with multiple problems, which include: * Metastatic renal cancer. * Sepsis. * Neutropenia. * Diabetes mellitus. * Malignant ascites. * Underlying immunosuppression. * Pleural effusion. * Renal failure. * Possible peritonitis. PLAN: * Continue meropenem. * Continue Granix. * Continue neutropenic precaution. * Continue colostomy care. * Continue pain management. * Monitor electrolytes. * Continue DVT prophylaxis. * The patient will be followed up closely. TID: [id number] RECEIPT: [id number]
[2024-04-25] VITALS (10 sets, daily range): BP systolic 85–100; BP diastolic 43–61; PULSE 77–88; RESP 16–20; TEMP 98.1–99; O2SAT 95–97
[2024-04-25] MEDS: LACTATED RINGERS 1000ML IV ONE (03:53)
[2024-04-25 06:09] LABS: CREATININE 2.3 mg/dL (0.5-1.3); MAGNESIUM 1.6 mg/dL (1.80-2.40)
[2024-04-25 06:16] LABS: POTASSIUM 2.9 mmol/L (3.5-5.1)
[2024-04-25 06:17] LABS: HEMATOCRIT 21.1 % (42-54); MEAN CORPUSCULAR HEMOGLOBIN 25.2 pg (27.0-33.0); MEAN CORPUSCULAR HGB CONC 32.7 g/dL (32.0-36.0); NUCLEATED RED BLOOD CELLS 0.4 % (0.0-0.19); RED BLOOD CELL COUNT(AUTO) 2.74 MIL/uL (4.50-6.20); RED CELL DISTRIBUTION WIDTH 17.9 % (11.0-15.5); WHITE BLOOD COUNT (AUTO) 4.8 K/uL (4.8-10.8)
[2024-04-25] MEDS ORDERED: PoTASSium chl 10% ELIXIR 20MEQ 20 MEQ/15 ML UDCUP PO PRN (07:00)
--- NOTE | 2024-04-25 10:28 | PN ---
A 48-year-old male with diabetes mellitus, hypertension, metastatic colon cancer, presented to the hospital with above complaint. The patient was discharged from this facility less than 24 hours ago. He was found to have septic shock, was admitted to ICU. The patient underwent paracentesis about 6000 mL of fluid removed. The patient did well and eventually discharged home. Patient received his first chemotherapy treatment. But the patient deteriorated significantly with the patient have severe failure to thrive. The patient had a paracentesis yesterday with the patient feeling a lot better. Lower extremity swelling improved significantlyI PHYSICAL EXAMINATION: GENERAL: Young male, awake, not in distress. VITAL SIGNS: Temperature 97.9, pulse 97, respiratory rate 18, BP 111/64. EYES: No icterus. Pupils equal and reactive. HENT: No oral thrush seen. Moist oral mucosa. NECK: Supple, no JVD or thyromegaly. LUNGS: Good air entry. No rales, no rhonchi. CARDIOVASCULAR: S1, S2 regular. No murmur heard. ABDOMEN: Distended with ascites. Colostomy functioning well. CENTRAL NERVOUS SYSTEM: Awake, alert, oriented x 3. No focal deficits. SKIN: No rashes, no itchiness. LYMPHATIC: No peripheral lymphadenopathy. BACK: No deformity, no pressure ulcer. HEMATOLOGIC: No bleeding or petechial lesions seen. MUSCULOSKELETAL: No joint swelling, erythema or tenderness. VASCULAR: No ischemia or gangrene of extremities. ASSESSMENT: * Metastatic colon cancer. * Malignant ascites. * Bilateral pleural effusion. * Metastatic lung cancer. * Chemotherapy-induced pancytopenia. * Obesity. * Debility. * Underlying immunosuppression. Plan 1. This patient has significant failure to thrive with the patient I think he is good candidate for hospice 2. Chemo induced neutropenia with the patient will need to Granix 3. If the patient and family agree on hospice then we will stop labs or vital otherwise we have to continue antibiotic treatment and transfusion as needed. 4. I will evaluate this patient tomorrow and then talk to him and his family. If he agrees on hospice then he could be discharged home with hospice Vitals/Labs Vital Signs Date Time Temp Pulse Resp B/P (MAP) Pulse Ox O2 Delivery O2 Flow Rate FiO2 04/25/24 10:03 87 19 21 04/25/24 08:00 99.0 99/43 97 Room Air 04/24/24 20:10 0 Laboratory Tests 04/25/24 05:55 Medications Current Medications Morphine Sulfate 2 mg ONCE ONCE IVP Last administered on 04/20/24at 22:53; Start 04/20/24 at 21:00; Stop 04/20/24 at 21:01; Status DC Acetaminophen 650 mg Q4H PRN PO; Start 04/20/24 at 23:00; Stop 05/20/24 at 22:59 Ondansetron HCl 4 mg Q6H PRN SL; Start 04/20/24 at 23:00; Stop 05/20/24 at 22:59 Insulin Human Regular INSULIN SLIDING SCAL... ACHS SQ; Start 04/21/24 at 07:30; Stop 05/21/24 at 07:29 Furosemide 40 mg DAILY PO Last administered on 04/21/24at 09:55; Start 04/21/24 at 09:00; Stop 04/21/24 at 13:58; Status DC Spironolactone 25 mg DAILY PO Last administered on 04/25/24at 08:51; Start 04/21/24 at 09:00; Stop 05/21/24 at 08:59 Ondansetron HCl 4 mg ONCE ONCE IVP Last administered on 04/20/24at 23:05; Start 04/20/24 at 23:30; Stop 04/20/24 at 23:31; Status DC Albumin Human 200 ml @ 0 mls/hr AD ONCE IV Last administered on 04/21/24at 09:56; Start 04/21/24 at 10:00; Stop 04/21/24 at 10:01; Status DC Pharmacy Profile Note 1 each AD MISC; Start 04/21/24 at 12:30; Stop 04/28/24 at 12:29 Furosemide 40 mg DAILY IV Last administered on 04/24/24at 09:52; Start 04/22/24 at 09:00; Stop 05/22/24 at 08:59 Piperacillin Sod/ Tazobactam Sod 3.375 gm Q8H IVPB Last administered on 04/25/24at 05:59; Start 04/21/24 at 15:00; Stop 05/01/24 at 14:59 Midodrine 10 mg TID PO Last administered on 04/25/24at 08:51; Start 04/23/24 at 21:00; Stop 05/23/24 at 20:59 Albumin Human 200 ml @ 0 mls/hr AD ONCE IV Last administered on 04/24/24at 11:30; Start 04/24/24 at 11:30; Stop 04/24/24 at 11:37; Status DC Wound Care/ Dressing Products 1 APPLICATION TID TP Last administered on 04/25/24at 08:55; Start 04/24/24 at 21:00; Stop 05/24/24 at 20:59 Lactated Ringer's 500 ml BOLUS ONCE IV Last administered on 04/25/24at 03:53; Start 04/25/24 at 04:00; Stop 04/25/24 at 04:01; Status DC Potassium Chloride 100 ml @ 100 mls/hr AD PRN IV; Start 04/25/24 at 07:00; Stop 05/25/24 at 06:59 Potassium Chloride 20 meq AD PRN PO; Start 04/25/24 at 07:00; Stop 05/25/24 at 06:59 Potassium Chloride 20 meq AD PRN PO; Start 04/25/24 at 07:00; Stop 05/25/24 at 06:59 CRISTIAN CRANE MD Apr 25, 2024 10:28
[2024-04-25] MEDS: PoTASSium chloRIDE 20MEQ/100ML 100 ML IV PRN (11:05)
[2024-04-25] MEDS: PoTASSium chloRIDE 20MEQ ER 20 MEQ ERTAB PO PRN (11:07)
--- NOTE | 2024-04-25 15:30 | PN ---
[facility] PROGRESS NOTE Date Patient Seen: Apr 25, 2024 Time of Visit: 15:30 Supervising Physician: [Dr. Farias] Primary Care Physician: [Primary team] Outpatient Specialists: [ ] Inpatient Consults: [BIS] PROBLEM LIST: Neutropenic sepsis on admission without shock, resolved Recurrent ascities in setting of colon cancer with mets to liver s/p paracentesis 04/24 by IR with 4.9L fluid removed Acute kidney injury on admission, decompensated Bilateral pleural effusions on admission, not a candidate for thora Hepatorenal syndrome Metastatic colon cancer to the liver Severe protein calorie malnutrition Adult failure to thrive Coagulopathy secondary to metastatic liver disease Pancytopenia Immunocompromised status INTERVAL HISTORY: 48 years old man recently discharged from hospital. Presents with weakness, dyspnea and poor appetite. He was admitted for neutropenia with neutropenic sepsis. Currently afebrile, in no acute distress, complains of fatigue, complains of nausea. He has dyspnea on exertion and orthopnea. We were consulted regarding effusions to both lungs. Patient has colon cancer with metastasis to liver. He is undergoing chemotherapy by Dr. Zhao for the same. The patient has had multiple paracenteses with 7.5L of fluid removed 3 days prior to admission. On admission patient had another 4.5 L removed. He is moderately distended again today. Dr. Zhao was consulted for evaluation and is now recommending hospice, which family is in discussion about. They are still dealing with the reality of his condition d/t recent diagnosis of cancer and the of his brother a few months ago. Questions answered and concerns addressed. 04/23 blood pressure is 95/58 with a heart rate of 87, afebrile on room air. Has 500 mL of urine output overnight. Continues with Lasix and spironolactone as blood pressure permits. Continues on Zosyn for empiric coverage. WBC remains decreased at 1, hemoglobin is 8, platelets are 31. BMP shows persistent hyponatremia at 131, worsened creatinine at 2.1. Patient has been referred to hospice. Will continue current management pending acceptance. 04/24 blood pressure is 102/54 with a heart rate of 91, afebrile on room air. Has 300 mL of documented urine output overnight. He did have a paracentesis this morning with 4.9 L of ascitic fluid removed. Was given a dose of albumin. He continues on midodrine, Lasix, spironolactone and Zosyn. Prior ascitic fluid study is negative for infection. Patient is recommended for hospice, pending eval. 04/25 Patient is weak and ill. Has decreased appetite. He is using BiPAP for comfort. Advised it is not necessary. His WBC is improved above neutropenic range. He has been recommended for hospice but has not accepted. REVIEW OF SYSTEMS: 12 point ROS reviewed with patient. Pertinent positives mentioned above. Otherwise negative. PHYSICAL EXAM: GENERAL: alert, weak, awake oriented x 3 HEENT: EOMI, Sclera non icteric, moist mucosa NECK: Supple, no JVD, trachea midline LUNGS: Decreased breath sounds bilaterally HEART: Regular rate and rhythm. Normal S1 and S2, without murmurs ABD: Abdomen soft, nontender. Bowel sounds present EXT: No clubbing cyanosis or edema NEURO: Alert and oriented to person, follows commands Vital Signs (last 8hr) Date Time Temp Pulse Resp B/P (MAP) Pulse Ox O2 Delivery O2 Flow Rate FiO2 04/25/24 14:31 84 19 21 04/25/24 12:00 98.4 81 20 96/54 99 Room Air 21 04/25/24 10:03 87 19 21 04/25/24 08:00 99.0 88 16 99/43 97 Room Air 21 LABS: Hematology Labs: Test 04/25/24 05:55 Range/Units White Blood Count 4.8 4.8-10.8 K/uL Red Blood Count 2.74 L 4.50-6.20 MIL/uL Hemoglobin 6.9 *L 14.0-18.0 g/dL Hematocrit 21.1 L 42-54 % Mean Corpuscular Volume 77.0 L 79-99 fL Mean Corpuscular Hemoglobin 25.2 L 27.0-33.0 pg Mean Corpuscular Hemoglobin Concent 32.7 32.0-36.0 g/dL Red Cell Distribution Width 17.9 H 11.0-15.5 % Platelet Count 49 #L 130-400 K/uL Mean Platelet Volume 11.2 H 7.5-10.5 fL Nucleated Red Blood Cells 0.4 H 0.0-0.19 % Chemistry Labs: Test 04/25/24 11:20 04/25/24 05:55 Range/Units Whole Blood Glucose 101 70-110 MG/DL Sodium Level 136 136-145 mmol/L Potassium Level 2.9 *L 3.5-5.1 mmol/L Chloride Level 102 101-111 mmol/L Carbon Dioxide Level 20 L 21-32 mmol/L Blood Urea Nitrogen 43 H 7-18 mg/dL Creatinine 2.3 H 0.5-1.3 mg/dL Glomerular Filtration Rate Calc 34 >90 mL/min Random Glucose 116 H 70-105 mg/dL Total Calcium 7.7 L 8.5-10.1 mg/dL Magnesium Level 1.60 L 1.80-2.40 mg/dL DIAGNOSTICS / RADIOLOGY RESULTS: [Reviewed] PLAN Continue Midodrine 10mg Q8H Diuretics as blood pressure allows Goals of care to be discussed Discuss advance directives due to poor prognosis Isolation precautions Stop granix No plans for thoracentesis at this time Patient is not in respiratory distress and is coagulopathic with high risk of bleeding, will monitor effusions and will not attempt thoracentesis due to high risk of complications NEURO: Minimize central acting medications as possible. Maintain fall precautions, adequate lighting during the day PULMONARY: Supplemental 02 as needed. Maintain aspiration precautions at all times CARDIOVASCULAR: Follow hemodynamics. Vital signs per facility protocol GI & NUTRITION: Continue with nutritional support. Continue stool softeners and laxatives as needed. KIDNEYS & ELECTROLYTES: Strict monitoring of intake, output and overall fluid balance. Avoid nephrotoxic medications to the extent possible. Medications to be dosed according to renal function. Monitor electrolytes and replace as needed ENDOCRINE: Maintain blood glucose between 100-180 at all times. Hypoglycemia protocol in place INFECTIOUS DISEASE: Trend temperature, WBC and procalcitonin level Follow cultures, deescalate antibiotics as soon as possible. Panculture if new onset fever ONCOLOGY/HEMATOLOGY/COAGULATION: Monitor for s/s of bleeding Monitor hemoglobin, coagulation studies as needed SKIN: Pressure ulcer prevention per facility protocol Specialty mattress ORTHO/REHAB: Continue PT/OT Prophylaxis: Continue GI and DVT prophylaxis Code Status: Full Resuscitation Disposition: TBD Other: Total patient care time exceeds 51 minutes excluding all procedures. ATTESTATION BY PHYSICIAN The patient has been seen and evaluated, the case has been discussed with the P[employer] F[employer]ICATOR AND ASSEMBLER, I agree with the clinical findings and plan of care. Jamin Farias MD, MARCUS A PA Apr 25, 2024 15:30
--- NOTE | 2024-04-25 15:34 | PN ---
INFECTIOUS DISEASE PROGRESS NOTE Date of Service: Apr 25, 2024 SUBJECTIVE: This is a48 year old male patient who was seen and examined at bedside in room 328. Patient is awake, alert and oriented x 3. Patient's WBC improved to 4.8. The hemoglobin however is low at 6.9 and patient will be transfused 1 unit of PRBC today. Patient was given a bolus of 500 mL of lactated Ringer earlier this morning due to hypotension, a BP of 85/43. No fever, temperature is 98.4. Will continue on zosyn. Discharge planning to home tomorrow if stable. We will continue to monitor patient. PHYSICAL EXAM EYES: Anicteric. Pupils equal and reactive. HENT: No oral thrush seen, moist Oral mucosa NECK: Supple, no JVD or thyromegaly. LUNGS: Good air entry. No rales, no rhonchi. CARDIOVASCULAR: S1, S2 regular. No murmur heard. ABDOMEN: Firm, distended. colostomy functioning well. CENTRAL NERVOUS SYSTEM: Awake, alert, oriented x 3. debility SKIN: No rashes, no swelling. LYMPHATICS: No peripheral lymphadenopathy MUSCULOSKELETAL: No joint swelling, erythema or tenderness. EXTREMITIES: No cyanosis or clubbing BACK: No deformity, no pressure ulcer. GENITOURINARY: No dysuria or hematuria Vital Sign (Last 12 Hours) 04/25/24 04/25/24 04/25/24 04/25/24 04:00 04:24 08:00 10:03 Temp 98.4 99.0 Pulse 86 88 87 Resp 16 16 19 B/P (MAP) 85/43 96/50 99/43 Pulse Ox 95 97 O2 Delivery Room Air Room Air FiO2 21 21 04/25/24 04/25/24 12:00 14:31 Temp 98.4 Pulse 81 84 Resp 20 19 B/P (MAP) 96/54 Pulse Ox 99 O2 Delivery Room Air FiO2 21 21 Intake & Output (last 24hrs) 04/24/24 04/24/24 04/25/24 15:00 23:00 07:00 Intake Total 125 ml 175 ml Output Total 500 ml 300 ml Balance 125 ml -325 ml -300 ml LABS: Laboratory: Test 04/25/24 11:20 04/25/24 05:55 04/24/24 15:29 Range/Units Whole Blood Glucose 101 70-110 MG/DL White Blood Count 4.8 4.8-10.8 K/uL Red Blood Count 2.74 L 4.50-6.20 MIL/uL Hemoglobin 6.9 *L 14.0-18.0 g/dL Hematocrit 21.1 L 42-54 % Mean Corpuscular Volume 77.0 L 79-99 fL Mean Corpuscular Hemoglobin 25.2 L 27.0-33.0 pg Mean Corpuscular Hemoglobin Concent 32.7 32.0-36.0 g/dL Red Cell Distribution Width 17.9 H 11.0-15.5 % Platelet Count 49 #L 130-400 K/uL Mean Platelet Volume 11.2 H 7.5-10.5 fL Nucleated Red Blood Cells 0.4 H 0.0-0.19 % Sodium Level 136 136-145 mmol/L Potassium Level 2.9 *L 3.5-5.1 mmol/L Chloride Level 102 101-111 mmol/L Carbon Dioxide Level 20 L 21-32 mmol/L Blood Urea Nitrogen 43 H 7-18 mg/dL Creatinine 2.3 H 0.5-1.3 mg/dL Glomerular Filtration Rate Calc 34 >90 mL/min Random Glucose 116 H 70-105 mg/dL Total Calcium 7.7 L 8.5-10.1 mg/dL Magnesium Level 1.60 L 1.80-2.40 mg/dL Blood Gas Specimen Type Arterial Arterial Blood pH 7.450 7.350-7.450 Arterial Blood Partial Pressure CO2 29 L 35-48 mmHg Arterial Blood Partial Pressure O2 128.3 H 83.0-108.0 mmHg Arterial Blood HCO3 19.6 L 21.0-28.0 mmol/L Arterial Blood Oxygen Saturation 98.7 H 94.0-98.0 % Arterial Blood Base Excess -3.0 L -2.0-3.0 mmol/L Blood Gas Temperature 37.0 35.5-37.0 CELSIUS Blood Gas Respiration Rate 14.0 min. Blood Gas Vent Mode BIPAP 10,5 ROOM AIR FiO2 30.0 % Blood Gas PEEP 5 cm H2O Blood Gas Specimen Comment HARPER RF ASSESSMENT: Abdominal pain. Metastatic colon cancer. Malignant ascites, status post paracentesis with 4.5 L removed today. Possible peritonitis. Pancytopenia. Bilateral Pleural effusion. Diabetes mellitus. Hypertension. Renal insufficiency. PLAN: Continue Zosyn. Continue pain management. Will Follow up on the cultures. Continue GI prophylaxis. Will Monitor electrolytes. Continue colostomy care. Oncology following patient. Discharge planning to home tomorrow if stable. This case was reviewed and discussed with my supervising physician and the above assessment and plan was formulated and agreed upon. ATTESTATION BY PHYSICIAN I have seen and examined the patient. I reviewed the documentation, medical decision making, and treatment plan as noted by the mid-level provider above. I agree with the findings and plan of care. CORI SHAW MD, [facility] Apr 25, 2024 15:34
[2024-04-26 00:06] VITALS: BP 95/56; PULSE 83; RESP 16; TEMP 98
[2024-04-26 01:44] VITALS: PULSE 82; RESP 19; O2SAT 98
[2024-04-26 04:00] VITALS: BP 103/56; PULSE 89; RESP 18; TEMP 98.7
[2024-04-26 05:48] LABS: BASOPHILS # (AUTO) 0.16 K/uL (0.00-0.20); BASOPHILS % (AUTO) 0.7 % (0.0-5.0); EOSINOPHILS # (AUTO) 0.01 K/uL (0.00-0.70); HEMATOCRIT 25.8 % (42-54); IMMATURE GRANULOCYTE ABSOLUTE 3.86 K/uL (0-1); LYMPHOCYTES # (AUTO) 2.7 K/uL (1.0-4.8); LYMPHOCYTES % (AUTO) 11.1 % (21.0-51.0); MEAN CORPUSCULAR HEMOGLOBIN 25.3 pg (27.0-33.0); MEAN CORPUSCULAR HGB CONC 33.3 g/dL (32.0-36.0); MEAN CORPUSCULAR VOLUME 75.9 fL (79-99); MONOCYTES # (AUTO) 2.7 K/uL (0.1-1.0); MONOCYTES % (AUTO) 11.2 % (3.0-13.0); NEUTROPHILS # (AUTO) 14.9 K/uL (1.8-7.7); NEUTROPHILS % (AUTO) 61.1 % (40.0-77.0); NUCLEATED RED BLOOD CELLS 2.7 % (0.0-0.19); PLATELET COUNT (AUTO) 79 K/uL (130-400); RED CELL DISTRIBUTION WIDTH 17.2 % (11.0-15.5); WHITE BLOOD COUNT (AUTO) 24.3 K/uL (4.8-10.8)
[2024-04-26 05:55] LABS: CREATININE 2.3 mg/dL (0.5-1.3); MAGNESIUM 1.4 mg/dL (1.80-2.40); POTASSIUM 3.6 mmol/L (3.5-5.1)
[2024-04-26] MEDS: MAGNESIUM 2GM PREMIX 50ML 50 ML IV PRN (06:22)
[2024-04-26 06:31] LABS: BAND NEUTROPHILS % (MANUAL) 7 % (0-2); BASOPHILS % (MANUAL) 1 % (0-2); LYMPHOCYTES % (MANUAL) 13 % (22-44); MAN.DIFF COMMENT-IMPRESSION MANUAL DIFFERENTIAL; MONOCYTES % (MANUAL) 10 % (2-9); SEGMENTED NEUTROPHILS % 69 % (40-70); TOTAL CELLS COUNTED 100; WBC MORPHOLOGY IMMATURE LYMPHS 1+
[2024-04-26 07:58] VITALS: PULSE 91; RESP 16; O2SAT 96
[2024-04-26 08:00] VITALS: BP 96/52; PULSE 84; RESP 20; TEMP 98.3; O2SAT 97
[2024-04-26] MEDS: furoSEMIDE 40 MG TABLET PO SCH (09:11)
[2024-04-26 12:00] VITALS: BP 107/61; PULSE 54; RESP 20; TEMP 98.4
--- NOTE | 2024-04-26 13:09 | PN ---
A 48-year-old male with diabetes mellitus, hypertension, metastatic colon cancer, presented to the hospital with above complaint. The patient was discharged from this facility less than 24 hours ago. He was found to have septic shock, was admitted to ICU. The patient underwent paracentesis about 6000 mL of fluid removed. The patient did well and eventually discharged home. Patient received his first chemotherapy treatment. But the patient deteriorated significantly with the patient have severe failure to thrive. Patient and family refusing hospice PHYSICAL EXAMINATION: GENERAL: Young male, awake, not in distress. VITAL SIGNS: Temperature 97.9, pulse 97, respiratory rate 18, BP 111/64. EYES: No icterus. Pupils equal and reactive. HENT: No oral thrush seen. Moist oral mucosa. NECK: Supple, no JVD or thyromegaly. LUNGS: Good air entry. No rales, no rhonchi. CARDIOVASCULAR: S1, S2 regular. No murmur heard. ABDOMEN: Distended with ascites. Colostomy functioning well. CENTRAL NERVOUS SYSTEM: Awake, alert, oriented x 3. No focal deficits. SKIN: No rashes, no itchiness. LYMPHATIC: No peripheral lymphadenopathy. BACK: No deformity, no pressure ulcer. HEMATOLOGIC: No bleeding or petechial lesions seen. MUSCULOSKELETAL: No joint swelling, erythema or tenderness. VASCULAR: No ischemia or gangrene of extremities. ASSESSMENT: * Metastatic colon cancer. * Malignant ascites. * Bilateral pleural effusion. * Metastatic lung cancer. * Chemotherapy-induced pancytopenia. * Obesity. * Debility. * Underlying immunosuppression. Plan 1. This patient has significant failure to thrive with the patient I think he is good candidate for hospice 2. Patient and family refusing hospice 3. If this patient is stable he could be discharged to follow-up with me as outpatient. I will evaluate him then see if he could be suitable for any chemo. 4. Continue care as per primary Vitals/Labs Vital Signs Date Time Temp Pulse Resp B/P (MAP) Pulse Ox O2 Delivery O2 Flow Rate FiO2 04/26/24 07:58 91 16 N/A Room Air 04/26/24 04:00 98.8 103/56 97 04/24/24 20:10 0 Laboratory Tests 04/26/24 05:36 Medications Current Medications Morphine Sulfate 2 mg ONCE ONCE IVP Last administered on 04/20/24at 22:53; Start 04/20/24 at 21:00; Stop 04/20/24 at 21:01; Status DC Acetaminophen 650 mg Q4H PRN PO; Start 04/20/24 at 23:00; Stop 05/20/24 at 22:59 Ondansetron HCl 4 mg Q6H PRN SL; Start 04/20/24 at 23:00; Stop 05/20/24 at 22:59 Insulin Human Regular INSULIN SLIDING SCAL... ACHS SQ; Start 04/21/24 at 07:30; Stop 05/21/24 at 07:29 Furosemide 40 mg DAILY PO Last administered on 04/21/24at 09:55; Start 04/21/24 at 09:00; Stop 04/21/24 at 13:58; Status DC Spironolactone 25 mg DAILY PO Last administered on 04/26/24at 09:11; Start 04/21/24 at 09:00; Stop 05/21/24 at 08:59 Ondansetron HCl 4 mg ONCE ONCE IVP Last administered on 04/20/24at 23:05; Start 04/20/24 at 23:30; Stop 04/20/24 at 23:31; Status DC Albumin Human 200 ml @ 0 mls/hr AD ONCE IV Last administered on 04/21/24at 09:56; Start 04/21/24 at 10:00; Stop 04/21/24 at 10:01; Status DC Pharmacy Profile Note 1 each AD MISC; Start 04/21/24 at 12:30; Stop 04/26/24 at 06:07; Status DC Furosemide 40 mg DAILY IV Last administered on 04/24/24at 09:52; Start 04/22/24 at 09:00; Stop 04/26/24 at 06:11; Status DC Piperacillin Sod/ Tazobactam Sod 3.375 gm Q8H IVPB Last administered on 04/26/24at 09:12; Start 04/21/24 at 15:00; Stop 05/01/24 at 14:59 Midodrine 10 mg TID PO Last administered on 04/26/24at 09:12; Start 04/23/24 at 21:00; Stop 05/23/24 at 20:59 Albumin Human 200 ml @ 0 mls/hr AD ONCE IV Last administered on 04/24/24at 11:30; Start 04/24/24 at 11:30; Stop 04/24/24 at 11:37; Status DC Wound Care/ Dressing Products 1 APPLICATION TID TP Last administered on 04/26/24at 09:12; Start 04/24/24 at 21:00; Stop 05/24/24 at 20:59 Lactated Ringer's 500 ml BOLUS ONCE IV Last administered on 04/25/24at 03:53; Start 04/25/24 at 04:00; Stop 04/25/24 at 04:01; Status DC Potassium Chloride 100 ml @ 100 mls/hr AD PRN IV Last administered on 04/26/24at 00:53; Start 04/25/24 at 07:00; Stop 05/25/24 at 06:59 Potassium Chloride 20 meq AD PRN PO; Start 04/25/24 at 07:00; Stop 05/25/24 at 06:59 Potassium Chloride 20 meq AD PRN PO Last administered on 04/25/24at 13:39; Start 04/25/24 at 07:00; Stop 05/25/24 at 06:59 Chlorpromazine HCl 25 mg ONCE IM; Start 04/25/24 at 21:30; Stop 04/25/24 at 21:08; Status DC Chlorpromazine HCl 25 mg ONCE ONCE IM Last administered on 04/25/24at 21:22; Start 04/25/24 at 21:30; Stop 04/25/24 at 21:31; Status DC Magnesium Sulfate 50 ml @ 0 mls/hr PROTOCOL PRN IV Last administered on 04/26/24at 06:22; Start 04/26/24 at 06:00; Stop 05/26/24 at 05:59 Furosemide 40 mg DAILY PO Last administered on 04/26/24at 09:11; Start 04/26/24 at 09:00; Stop 05/26/24 at 08:59 CRISTIAN CRANE MD Apr 26, 2024 13:09
--- NOTE | 2024-04-26 15:08 | PN ---
[facility] PROGRESS NOTE Date Patient Seen: Apr 26, 2024 Time of Visit: 15:08 Supervising Physician: [Dr. Olivares] Primary Care Physician: [Primary team] Outpatient Specialists: [ ] Inpatient Consults: [BIS] PROBLEM LIST: Neutropenic sepsis on admission without shock, resolved Recurrent ascities in setting of colon cancer with mets to liver s/p paracentesis 04/24 by IR with 4.9L fluid removed Acute kidney injury on admission, decompensated Bilateral pleural effusions on admission, not a candidate for thora Hepatorenal syndrome Metastatic colon cancer to the liver Severe protein calorie malnutrition Adult failure to thrive Coagulopathy secondary to metastatic liver disease Pancytopenia Immunocompromised status INTERVAL HISTORY: 48 years old man recently discharged from hospital. Presents with weakness, dyspnea and poor appetite. He was admitted for neutropenia with neutropenic sepsis. Currently afebrile, in no acute distress, complains of fatigue, complains of nausea. He has dyspnea on exertion and orthopnea. We were consulted regarding effusions to both lungs. Patient has colon cancer with metastasis to liver. He is undergoing chemotherapy by Dr. Zhao for the same. The patient has had multiple paracenteses with 7.5L of fluid removed 3 days prior to admission. On admission patient had another 4.5 L removed. He is moderately distended again today. Dr. Zhao was consulted for evaluation and is now recommending hospice, which family is in discussion about. They are still dealing with the reality of his condition d/t recent diagnosis of cancer and the of his brother a few months ago. Questions answered and concerns addressed. 04/23 blood pressure is 95/58 with a heart rate of 87, afebrile on room air. Has 500 mL of urine output overnight. Continues with Lasix and spironolactone as blood pressure permits. Continues on Zosyn for empiric coverage. WBC remains decreased at 1, hemoglobin is 8, platelets are 31. BMP shows persistent hyponatremia at 131, worsened creatinine at 2.1. Patient has been referred to hospice. Will continue current management pending acceptance. 04/24 blood pressure is 102/54 with a heart rate of 91, afebrile on room air. Has 300 mL of documented urine output overnight. He did have a paracentesis this morning with 4.9 L of ascitic fluid removed. Was given a dose of albumin. He continues on midodrine, Lasix, spironolactone and Zosyn. Prior ascitic fluid study is negative for infection. Patient is recommended for hospice, pending eval. 04/25 Patient is weak and ill. Has decreased appetite. He is using BiPAP for comfort. Advised it is not necessary. His WBC is improved above neutropenic range. He has been recommended for hospice but has not accepted. 04/26 blood pressure is 103/56 with a heart rate of 89, afebrile on room air. He continues on midodrine, furosemide and spironolactone. Patient's hemoglobin dropped to 6.9, did receive 1 unit PRBC with improvement to 8.6. His WBC increased to 24, granix is now dc. Patient is recommended for hospice, but has refused. He is recommended to follow up with Oncology outpatient to re-evaluate his candidacy for chemotherapy. REVIEW OF SYSTEMS: 12 point ROS reviewed with patient. Pertinent positives mentioned above. Otherwise negative. PHYSICAL EXAM: GENERAL: alert, weak, awake oriented x 3 HEENT: EOMI, Sclera non icteric, moist mucosa NECK: Supple, no JVD, trachea midline LUNGS: Decreased breath sounds bilaterally HEART: Regular rate and rhythm. Normal S1 and S2, without murmurs ABD: Abdomen soft, nontender. Bowel sounds present EXT: No clubbing cyanosis or edema NEURO: Alert and oriented to person, follows commands Vital Signs (last 8hr) Date Time Temp Pulse Resp B/P (MAP) Pulse Ox O2 Delivery O2 Flow Rate FiO2 04/26/24 07:58 91 16 N/A Room Air 21 LABS: Hematology Labs: Test 04/26/24 05:36 Range/Units White Blood Count 24.3 #H 4.8-10.8 K/uL Red Blood Count 3.40 #L 4.50-6.20 MIL/uL Hemoglobin 8.6 #L 14.0-18.0 g/dL Hematocrit 25.8 #L 42-54 % Mean Corpuscular Volume 75.9 L 79-99 fL Mean Corpuscular Hemoglobin 25.3 L 27.0-33.0 pg Mean Corpuscular Hemoglobin Concent 33.3 32.0-36.0 g/dL Red Cell Distribution Width 17.2 H 11.0-15.5 % Platelet Count 79 #L 130-400 K/uL Mean Platelet Volume 10.2 7.5-10.5 fL Immature Granulocyte % (Auto) 15.9 H 0-1 % Neutrophils (%) (Auto) 61.1 40.0-77.0 % Lymphocytes (%) (Auto) 11.1 L 21.0-51.0 % Monocytes (%) (Auto) 11.2 3.0-13.0 % Eosinophils (%) (Auto) 0.0 0.0-8.0 % Basophils (%) (Auto) 0.7 0.0-5.0 % Neutrophils # (Auto) 14.9 H 1.8-7.7 K/uL Lymphocytes # (Auto) 2.7 1.0-4.8 K/uL Monocytes # (Auto) 2.7 H 0.1-1.0 K/uL Eosinophils # (Auto) 0.01 0.00-0.70 K/uL Basophils # (Auto) 0.16 0.00-0.20 K/uL Absolute Immature Granulocyte (auto 3.86 H 0-1 K/uL Segmented Neutrophils % 69 40-70 % Band Neutrophils % 7 H 0-2 % Lymphocytes % (Manual) 13 L 22-44 % Monocytes % (Manual) 10 H 2-9 % Basophils % (Manual) 1 0-2 % Nucleated Red Blood Cells 2.7 H 0.0-0.19 % Differential Comment MANUAL DIFFERENTIAL White Cell Morphology Comment IMMATURE LYMPHS 1+ Platelet Morphology Comment See comments Red Blood Cell Morphology See comments Chemistry Labs: Test 04/26/24 11:02 04/26/24 05:36 Range/Units Whole Blood Glucose 138 H 70-110 MG/DL Sodium Level 136 136-145 mmol/L Potassium Level 3.6 3.5-5.1 mmol/L Chloride Level 104 101-111 mmol/L Carbon Dioxide Level 19 L 21-32 mmol/L Blood Urea Nitrogen 37 H 7-18 mg/dL Creatinine 2.3 H 0.5-1.3 mg/dL Glomerular Filtration Rate Calc 34 >90 mL/min Random Glucose 105 70-105 mg/dL Total Calcium 8.1 L 8.5-10.1 mg/dL Magnesium Level 1.40 L 1.80-2.40 mg/dL DIAGNOSTICS / RADIOLOGY RESULTS: US ABDOMINAL PARACENTESIS IR REASON: ASCITES TECHNIQUE: Paracentesis was performed with ultrasound guidance. The puncture site was selected in the Right lower quadrant and overlying skin prepped and draped in a sterile fashion. 1% Xylocaine infiltration was performed. Catheter was placed in the fluid using trocar technique. 4.9 cm were removed. Fluid sample was submitted for laboratory evaluation. The patient showed no evidence of complication during the procedure. IMPRESSION: 1. Ultrasound-guided paracentesis. PLAN Continue Midodrine 10mg Q8H Diuretics as blood pressure allows Goals of care to be discussed Discuss advance directives due to poor prognosis Isolation precautions Stop granix No plans for thoracentesis at this time Patient is not in respiratory distress and is coagulopathic with high risk of bleeding, will monitor effusions and will not attempt thoracentesis due to high risk of complications NEURO: Minimize central acting medications as possible. Maintain fall precautions, adequate lighting during the day PULMONARY: Supplemental 02 as needed. Maintain aspiration precautions at all times CARDIOVASCULAR: Follow hemodynamics. Vital signs per facility protocol GI & NUTRITION: Continue with nutritional support. Continue stool softeners and laxatives as needed. KIDNEYS & ELECTROLYTES: Strict monitoring of intake, output and overall fluid balance. Avoid nephrotoxic medications to the extent possible. Medications to be dosed according to renal function. Monitor electrolytes and replace as needed ENDOCRINE: Maintain blood glucose between 100-180 at all times. Hypoglycemia protocol in place INFECTIOUS DISEASE: Trend temperature, WBC and procalcitonin level Follow cultures, deescalate antibiotics as soon as possible. Panculture if new onset fever ONCOLOGY/HEMATOLOGY/COAGULATION: Monitor for s/s of bleeding Monitor hemoglobin, coagulation studies as needed SKIN: Pressure ulcer prevention per facility protocol Specialty mattress ORTHO/REHAB: Continue PT/OT Prophylaxis: Continue GI and DVT prophylaxis Code Status: Full Resuscitation Disposition: TBD Other: Total patient care time exceeds 51 minutes excluding all procedures. ATTESTATION BY PHYSICIAN The patient has been seen and evaluated, the case has been discussed with the CHEMICAL PROCESSING TECHNICIAN, I agree with the clinical findings and plan of care. Jamin Farias MD, MARCUS A PA Apr 26, 2024 15:08
--- NOTE | 2024-04-26 15:33 | DS ---
Discharge Summary Hospital Course This is a 48-year-old male with diabetes mellitus, hypertension, metastatic colon cancer, presented to the hospital with above complaint. The patient was discharged from this facility less than 24 hours ago. He was found to have septic shock, was admitted to ICU. The patient underwent paracentesis about 6000 mL of fluid removed. The patient did well and eventually discharged home. The patient denied cough or shortness of breath. CT of the chest, abdomen and pelvis has been done, shows moderate ascites and bilateral pleural effusion, which is worse on the right side. The patient was also found to be neutropenic with WBC of 0.6. Sodium was low at 129. While in the hospital patient was f ollowed by Oncology and was placed on Granix and the WBC today is 24.3. Patient was given1 unit of PRBC on 04/25/2024 for hemoglobin of 6.9. Hemoglobin today is stable at 8.6. Patient also had two paracentesis done while in the hospital one on 04/21/2024 where 4.5 L were removed and one on 04/24/2024 with 4.9 L removed. Patient will be discharged to home today and he is to follow up with Dr. Zhao in 1-2 weeks. FINAL DISCHARGE DIAGNOSIS: Abdominal pain. Metastatic colon cancer. Malignant ascites, status post paracentesis with 4.5 L removed today. Possible peritonitis. Leukocytosis secondary to the Granix. Bilateral Pleural effusion. Diabetes mellitus. Hypertension. Renal insufficiency. PLAN: Discharge patient to home today. Continue same home medications. Follow up with Dr. Garza in 1-2 weeks. Follow up with PCP in 3-5 days. This case was reviewed and discussed with my supervising physician and the above assessment and plan was formulated and agreed upon. ATTESTATION BY PHYSICIAN I have seen and examined the patient. I reviewed the documentation, medical decision making, and treatment plan as noted by the mid-level provider above. I agree with the findings and plan of care. CORI SHAW MD, MIRTA L [facility] Apr 26, 2024 15:32
== END 2024-04-26 17:30 | disposition home or self-care (01) | DRG 871 ==
LOC: EDH 20:19 → EDHIP 22:38 → 3DH 04-21 00:07
PROVIDERS: ADMIT Internal Medicine Infectious Disease; ATTEND Internal Medicine Infectious Disease
PROC: 5A09357 Assistance with Respiratory Ventilation, Less than 24 Consecutive Hours, Continuous Positive Airway Pressure (ICD-10-PCS; 2024-04-20)
PROC: 0W9G3ZZ Drainage of Peritoneal Cavity, Percutaneous Approach (ICD-10-PCS; 2024-04-21)
PROC: 0W9G30Z Drainage of Peritoneal Cavity with Drainage Device, Percutaneous Approach (ICD-10-PCS; principal; 2024-04-24)
PROC: 30233N1 Transfusion of Nonautologous Red Blood Cells into Peripheral Vein, Percutaneous Approach (ICD-10-PCS; 2024-04-25)
DX: A41.9 Sepsis, unspecified organism (principal); D61.810 Antineoplastic chemotherapy induced pancytopenia; K65.9 Peritonitis, unspecified; E43 Unspecified severe protein-calorie malnutrition; K76.7 Hepatorenal syndrome; R65.21 Severe sepsis with septic shock; C18.9 Malignant neoplasm of colon, unspecified; C34.90 Malignant neoplasm of unspecified part of unspecified bronchus or lung; C78.7 Secondary malignant neoplasm of liver and intrahepatic bile duct; R18.0 Malignant ascites; J90 Pleural effusion, not elsewhere classified; D84.9 Immunodeficiency, unspecified; N17.9 Acute kidney failure, unspecified; D68.9 Coagulation defect, unspecified; J98.11 Atelectasis; C64.9 Malignant neoplasm of unspecified kidney, except renal pelvis; E87.1 Hypo-osmolality and hyponatremia; T45.1X5A Adverse effect of antineoplastic and immunosuppressive drugs, initial encounter; E66.9 Obesity, unspecified; E11.9 Type 2 diabetes mellitus without complications; Y92.89 Other specified places as the place of occurrence of the external cause; I10 Essential (primary) hypertension; R16.2 Hepatomegaly with splenomegaly, not elsewhere classified; R62.7 Adult failure to thrive; K31.89 Other diseases of stomach and duodenum; Z93.3 Colostomy status; E78.5 Hyperlipidemia, unspecified; Z83.3 Family history of diabetes mellitus; Z85.038 Personal history of other malignant neoplasm of large intestine; Z68.34 Body mass index [BMI] 34.0-34.9, adult
CPT/HCPCS: 36415; 36600; 49083; 71045; 71250; 74176; 80048; 80053; 82803; 82948; 83735; 85025; 85027; 85610; 85730; 86850; 86900; 86901; 86923; 87071; 87205; 89051; 94660; 96374; 96375; C1729; G0378; J1940; J2270; J2405; J2543; J3230; J3475; J3480; P9016; P9046; J1447